=== PATIENT | female | born 1980 | race Caucasian/White ===

== ENCOUNTER 2019-10-29 13:58 | Inpatient (IN) | payer OTHER, SELFPAY ==
[2019-10-29] VITALS (12 sets, daily range): BP systolic 98–114; BP diastolic 44–73; PULSE 71–92; RESP 14–30; TEMP 36.4–36.6; O2SAT 94–100; BMI 20.1
--- NOTE | 2019-10-29 14:31 | ED.WEAKNESS ---
HPI - Weakness General Chief complaint: Weakness Stated complaint: Weakness Time Seen by Provider: 10/29/19 14:10 Source: patient Mode of arrival: EMS Limitations: no limitations History of Present Illness HPI Narrative: Patient is a 39-year-old female with history of multiple sclerosis she was actually diagnosed at the age of 11 she is here with her long-time friend who graduated high school with her. She says that she has progressively gotten she is able to ambulate with walker but is no longer able to do so and has not for a few months. She states she saw her friend 5 days ago who was found on the floor covered in urine and stool. She requires assistance to be carried to and from the bathroom. She also is unable to feed herself her hands no longer come up to her mouth, the friend has been helping feed her the past few days. Patient says that she fell he did not hit her head but landed straight on her bottom on Friday. She could sometimes tell if she needs to urinate or not. She is getting some sharp stabbing pain in her arms at times. She is followed by Dr. Muir at Neurology at [facility] Complaint: generalized weakness Related Data Home Medications Medication Instructions Recorded Confirmed [GILENADA] #0 11/11/12 [TAZADADINE] #0 11/11/12 baclofen 10 mg PO Q6H #0 tab 11/11/12 fluoxetine 40 mg PO QDAY #0 cap 11/11/12 gabapentin #0 11/11/12 ibuprofen #0 11/11/12 ibuprofen [Advil] 200 mg PO #0 tab 11/11/12 lamotrigine [Lamictal ODT] 200 mg PO BID #0 11/11/12 oxycodone-acetaminophen [Percocet] 3 tab PO Q4HP PRN #0 tab 11/11/12 Allergies Allergy/AdvReac Type Severity Reaction Status Date / Time No Known Drug Allergies Allergy Verified 10/29/19 19:20 Review of Systems Review of Systems ROS Unobtainable: All systems reviewed & are unremarkable except as noted in HPI and below Constitutional Constitutional: Denies chills, Reports frequent falls and Reports poor appetite Cardiovascular Cardiovascular: Denies chest pain, Denies irregular heart rhythm, Denies lightheadedness, Denies palpitations, Denies dyspnea, Denies dyspnea on exertion and Denies orthopnea Respiratory Respiratory: Denies cough, Denies dyspnea, Denies dyspnea on exertion and Denies wheezing Gastrointestinal Gastrointestinal: Denies abdominal pain, Denies change in bowel habits, Denies diarrhea, Denies nausea and Denies vomiting Genitourinary Genitourinary: Reports as per HPI Genitourinary: Reports as per HPI Musculoskeletal Musculoskeletal: Reports as per HPI Integumentary/Breasts Skin/Breast: Denies pruritus, Denies erythema, Denies rash and Denies wounds Neurologic Neurologic: Reports as per HPI and Reports frequent falls Endocrine Endocrine: Denies palpitations Allergic/Immunologic Allergic/Immunologic: Denies wheezing Patient History Medical History Multiple sclerosis (Acute) Social History Smoking Status: Former smoker Smoking Status: Former smoker alcohol intake frequency: 0-2 drinks per day Substance Use Type: marijuana Exam Initial Vital Signs Initial Vital Signs: Vital Signs Temperature 97.8 F 10/29/19 14:23 Pulse Rate 92 H 10/29/19 14:23 Respiratory Rate 14 10/29/19 14:23 Blood Pressure 98/57 L 10/29/19 14:23 Pulse Oximetry 99 10/29/19 14:23 GENERAL: Thin female and in [no acute] distress. HEENT: Head atraumatic,EOMI, pupils reactive, face symmetric, [moist] mucous membranes CARDIOVASCULAR: Regular rate and rhythm without murmurs, rubs or gallops. RESPIRATORY: Breath sounds equal bilaterally, no wheezes rales or rhonchi. ABDOMEN: Soft, nontender. Normoactive bowel sounds all 4 quadrants. No guarding or rebound. EXTREMITIES: Normal range of motion, no clubbing or edema. Neurovascularly intact NEUROLOGICAL: Alert and oriented x4. Diffuse weakness SKIN: Warm, dry, no laceration, no petechiae, no rashes or lesions. Course Orders Ordered: ED Orders 10/29/19 14:41 Urinalysis and Microscopic Stat 10/29/19 14:44 Consult to GLASS MOULD CLEANER - Cream Hauler Stat 10/29/19 15:00 Complete Blood Count AUTO DIFF Stat Comprehensive Metabolic Panel Stat 10/29/19 15:11 CT head/brain wo con Stat Acetaminophen (Tylenol) 650 mg PO Q6HR PRN PRN Reason: Fever/Mild Pain (1-3) Baclofen (Lioresal) 10 mg PO Q6H [facility] Enoxaparin Sodium (Lovenox) 40 mg SUBCUT DAILY [facility] Fluoxetine HCl (Prozac) 40 mg PO DAILY [facility] Dextrose/Sodium Chloride (Dextrose 5%-0.9% Ns) 1,000 mls @ 150 mls/hr IV CONT RICHARD Ibuprofen (Advil) 600 mg PO Q6HR PRN PRN Reason: Fever/Mild Pain (1-3) Naloxone HCl (Narcan) 0.2 mg IV Q2MIN PRN PRN Reason: Opiate Reversal Oxycodone HCl (Percolone) 5 mg PO Q6HR PRN PRN Reason: Pain, Moderate (4-6) Discontinued Medications Acetaminophen (Tylenol) 975 mg PO NOW ONE Stop: 10/29/19 15:12 Last Admin: 10/29/19 15:18 Dose: 975 mg Documented by: KUMAR Hydromorphone HCl (Dilaudid) 0.5 mg IV NOW ONE Stop: 10/29/19 16:59 Last Admin: 10/29/19 17:05 Dose: 0.5 mg Documented by: KUMAR Sodium Chloride (Normal Saline 0.9%) 1,000 mls @ 1,000 mls/hr IV BOLUS ONE Stop: 10/29/19 15:40 Last Infusion: 10/29/19 19:23 Dose: 1,000 mls/hr Documented by: DEE DEE Admin: 10/29/19 15:06 Dose: 1,000 mls/hr Documented by: KUMAR Vital Signs Vital signs: Vital Signs - 8 hr 10/29/19 14:23 10/29/19 14:42 10/29/19 15:00 Temperature 97.8 F Pulse Rate 92 H 85 88 Respiratory Rate 14 30 H 25 H Blood Pressure 98/57 L 98/63 Pulse Oximetry 99 10/29/19 15:32 10/29/19 16:00 10/29/19 16:30 Temperature Pulse Rate 80 74 72 Respiratory Rate 20 27 H 21 Blood Pressure 111/73 114/64 106/59 L Pulse Oximetry 100 99 100 10/29/19 17:00 10/29/19 17:30 10/29/19 18:00 Temperature Pulse Rate 71 76 73 Respiratory Rate 20 26 H Blood Pressure 108/61 114/58 L Pulse Oximetry 100 99 96 MDM - Weakness Lab Data Attestation: I reviewed the patient's lab results. Result diagrams: 10/29/19 15:00 10/29/19 15:00 Labs: Lab Results 10/29/19 10/29/19 Range/Units 15:00 15:00 WBC 8.2 (4.5-11.0) X10^3/uL RBC 3.66 L (4.0-5.2) X10^6/uL Hgb 10.8 L (12.0-16.0) g/dL Hct 32.5 L (36-46) % MCV 88.6 (80-100) fL MCH 29.5 (26-34) PG MCHC 33.3 (30-36) % RDW 16.9 H (11.6-14.8) % Plt Count 293 (150-400) X10^3/uL Neut % (Auto) 78.4 H (50-75) % Lymph % (Auto) 15.1 L (25-40) % [place] % (Auto) 5.2 (3-14) % Eos % (Auto) 0.3 L (2-4) % Baso % (Auto) 1.0 (0-2) % Neut # (Auto) 6400 (4476-4548) /uL Lymph # (Auto) 1200 (3207-6440) /uL [place] # (Auto) 400 (0-900) /uL Eos # (Auto) 0 (0-450) /uL Baso # (Auto) 100 (0-100) /uL Sodium 136 L (137-145) mmol/L Potassium 4.2 (3.4-5.1) mmol/L Chloride 102 (98-107) mmol/L Carbon Dioxide 24 (22-32) mmol/L BUN 17 (7-17) mg/dL Creatinine 0.73 (0.52-1.04) mg/dL Estimated GFR > 60.0 (>60) mL/min BUN/Creatinine Ratio 23.3 H (6-22) Glucose 102 H (70-100) mg/dL Calcium 9.0 (8.4-10.2) mg/dL Total Bilirubin 0.4 (0.2-1.3) mg/dL AST 24 (14-36) IU/L ALT 12 (<35) IU/L Alkaline Phosphatase 65 (38-126) U/L Total Protein 7.7 (6.3-8.2) g/dL Albumin 4.3 (3.5-5.0) g/dL Globulin 3.4 (1.7-4.1) g/dL Albumin/Globulin Ratio 1.3 (1.0-2.8) Imaging Data CT scan - head: Radiologist Impression: PROCEDURE: CT HEAD/BRAIN WO CON INDICATIONS: headache, falling hx MS TECHNIQUE: Noncontrast 4.5 mm thick angled axial sections acquired from the foramen magnum to the vertex, with coronal and sagittal reformats. For radiation dose reduction, the following was used: automated exposure control, adjustment of mA and/or kV according to patient size. COMPARISON: [facility], CT, HEAD WITHOUT CONTRAST, 11/11/2012, 18:36. FINDINGS: Image quality: Excellent. CSF spaces: Basal cisterns are patent. No extra-axial fluid collections. Ventricles are normal in size and shape. Brain: No midline shift. No intracranial masses or hemorrhage. Ramos-white matter interface is normal. Abnormal low-density can be seen within the periventricular and deep white matter. Skull and face: Calvarium and visualized facial bones are intact, without suspicious lesions. Sinuses: Visualized sinuses and mastoids are clear. IMPRESSION: No acute intracranial hemorrhage is seen. There is abnormal low density seen within the periventricular and deep white matter. This is highly unusual for a patient of this age, although given history of multiple sclerosis, this may be related to prominent multiple sclerosis plaques. No prior MRI is available for comparison at the time of this study. If clinically appropriate, a follow-up MRI could be considered for further evaluation (assuming that there is no contraindication). Dictated by: Doni Salazar M.D. on 10/29/2019 at 14:37 Approved by: Doni Salazar M.D. on 10/29/2019 at 14:39 MDM Narrative Medical decision making narrative: Patient is clearly failure to thrive she lives alone her friend has been helping care for her but seems to be too much. She is requiring to be Yancy to and from the restroom she is caring it depends she is unable to feed herself. 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 Discussed case with Dr. Olson who is on-call for patient's physician Dr. Hinds who happily accepts patient. Social Work has been involved with case trying to get her placement but has been unsuccessful from the emergency department. Discharge Plan Departure Patient Disposition: Admitted as Observation Clinical Impression: Multiple sclerosis, Adult failure to thrive Referrals: He Wellington MD [Primary Care Provider] - Admit Date/Time: 10/29/19 18:01 Admit Provider: Sal Olson
[2019-10-29] MEDS: SODIUM CHLORIDE 0.9% 1,000 ML 1000 ML IV (15:06)
[2019-10-29 15:09] LABS: Add Manual Diff / Slide Review NO; Basophils Absolute Auto 100 /uL (0-100); Eosinophils Absolute Auto 0 /uL (0-450); Eosinophils Percent Auto 0.3 % (2-4); Hematocrit 32.5 % (36-46); Hemoglobin 10.8 g/dL (12.0-16.0); Lymphocytes Absolute Auto 1200 /uL (1100-4500); Lymphocytes Percent Auto 15.1 % (25-40); Mean Corpuscular HGB Conc 33.3 % (30-36); Mean Corpuscular Hemoglobin 29.5 PG (26-34); Mean Corpuscular Volume 88.6 fL (80-100); Monocytes Absolute Auto 400 /uL (0-900); Monocytes Percent Auto 5.2 % (3-14); Neutrophils Absolute Auto 6400 /uL (1500-7000); Neutrophils Percent Auto 78.4 % (50-75); Platelet Count 293 X10^3/uL (150-400); Red Blood Cell Count 3.66 X10^6/uL (4.0-5.2); Red Cell Distribution Width 16.9 % (11.6-14.8); White Blood Cell Count 8.2 X10^3/uL (4.5-11.0)
--- NOTE | 2019-10-29 15:11 | DI.CT.S_ITS ---
PROCEDURE: CT HEAD/BRAIN WO CON INDICATIONS: headache, falling hx MS TECHNIQUE: Noncontrast 4.5 mm thick angled axial sections acquired from the foramen magnum to the vertex, with coronal and sagittal reformats. For radiation dose reduction, the following was used: automated exposure control, adjustment of mA and/or kV according to patient size. COMPARISON: [facility], CT, HEAD WITHOUT CONTRAST, 11/11/2012, 18:36. FINDINGS: Image quality: Excellent. CSF spaces: Basal cisterns are patent. No extra-axial fluid collections. Ventricles are normal in size and shape. Brain: No midline shift. No intracranial masses or hemorrhage. Ramos-white matter interface is normal. Abnormal low-density can be seen within the periventricular and deep white matter. Skull and face: Calvarium and visualized facial bones are intact, without suspicious lesions. Sinuses: Visualized sinuses and mastoids are clear. IMPRESSION: No acute intracranial hemorrhage is seen. There is abnormal low density seen within the periventricular and deep white matter. This is highly unusual for a patient of this age, although given history of multiple sclerosis, this may be related to prominent multiple sclerosis plaques. No prior MRI is available for comparison at the time of this study. If clinically appropriate, a follow-up MRI could be considered for further evaluation (assuming that there is no contraindication). Dictated by: Doni Salazar M.D. on 10/29/2019 at 14:37 Approved by: Doni Salazar M.D. on 10/29/2019 at 14:39
[2019-10-29] MEDS: ACETAMINOPHEN 325 MG TABLET 975 MG PO (15:18)
--- NOTE | 2019-10-29 16:09 | CM.SWNOTE ---
PARACHUTE OFFICER note PARACHUTE OFFICER consult requested for patient. Patient is a 39 y/o female with longstanding dx of MS. Patient presents to ED today with lifelong friend Nyasia via EMS after Nyasia found patient unable to move and sitting in feces. Patient is alert and oriented x3, and speaks slowly due to MS. Patient and Nyasia explain to PARACHUTE OFFICER that patient has been living alone for several years and has had her ups and downs with MS, but that patient is currently unable to use her legs or control her bowels. Nyasia and patient both report that patient has not been moving from her couch and not moving about her apartment with recent onset of PARACHUTE OFFICER symptoms. Both inform PARACHUTE OFFICER that patient is currently unable to complete many of her ADL's including walking, bathroom, feeding, and water intake. Nyasia reports that, since learning of the severity of patient's symptoms roughly 2 weeks ago, Nyasia has been working to learn about patient's current care team and has been trying to provide and coordinate caregiving as much as possible. Patient currently receives HH PT through [facility], and Nyasia explains that patient's PT stated that patient needed to be looking at long-term and informed Nyasia that a SW from [facility] would follow up. Nyasia and patient both report that this did not happen. Patient states she is open to other living arrangements to meet her needs. At time off assessment, medical tests/lab results are still pending, and it is unclear if patient will be admitted. PARACHUTE OFFICER discusses this with patient and Nyasia, and will follow up as more information is provided. PARACHUTE OFFICER offers to contact [facility] to see if patient can get connected to an outpatient catalytic case operator who may be able to help navigate in-home care options post d/c. Patient provides PARACHUTE OFFICER consent to call [facility] and to provide Nyasia's contact info if needed. PARACHUTE OFFICER calls [facility] and speaks to Ruby in Aging and Disability resources. Iliana offers to screen patient for services immediately, and sign patient up for medicaid. PARACHUTE OFFICER asks patient if she would be interested in discussing this with Iliana now and patient says yes. PARACHUTE OFFICER provides Nyasia's phone [phone] to Iliana per patient request, and Iliana will call to set up Medicaid. PARACHUTE OFFICER will follow up with patient and Dr. Kirk to continue to plan for care for patient. MAMI Bray
[2019-10-29 16:12] LABS: Alanine Aminotransferase 12 IU/L (<35); Albumin 4.3 g/dL (3.5-5.0); Albumin Globulin Ratio 1.3 (1.0-2.8); Alkaline Phosphatase 65 U/L (38-126); Aspartate Aminotransferase 24 IU/L (14-36); BUN Creatinine Ratio 23.3 (6-22); Bilirubin Total 0.4 mg/dL (0.2-1.3); Blood Urea Nitrogen 17 mg/dL (7-17); Carbon Dioxide 24 mmol/L (22-32); Chloride 102 mmol/L (98-107); Estimated Glomerular Filt Rate > 60.0 mL/min (>60); Globulin 3.4 g/dL (1.7-4.1); Glucose 102 mg/dL (70-100); HEMOLYSIS 17 (0-50); Potassium 4.2 mmol/L (3.4-5.1); Sodium 136 mmol/L (137-145); Total Protein 7.7 g/dL (6.3-8.2)
[2019-10-29] MEDS: HYDROMORPHONE 0.5 MG INJ IV (17:05)
--- NOTE | 2019-10-29 17:23 | CM.SWNOTE ---
PIANO CASE AND BENCH ASSEMBLER note PIANO CASE AND BENCH ASSEMBLER staffs with Dr. Kirk. Dr. Kirk discusses significant concerns with patient wellbeing and safety at home due to patient's current presentation and difficulty in completing any ADLs and lack of consistent caregivers. PIANO CASE AND BENCH ASSEMBLER and Dr. Kirk in agreement that patient is currently in need for 24/7 care based on current presentation. PIANO CASE AND BENCH ASSEMBLER attempts SNF placement from ED, but is unable to complete/obtain needed authorizations due to time of day (after 5pm on Friday). PIANO CASE AND BENCH ASSEMBLER informs Dr. Kirk, who states plan to admit patient to . MAMI Bray
[2019-10-29 19:49] LABS: COVID19 -Nasal RAPID Negative (Negative)
[2019-10-29] MEDS: DEXTROSE 5%-0.9% NS 1,000 ML 150 ML IV (20:08)
[2019-10-30] VITALS: BP 95/51; PULSE 68; RESP 18; TEMP 36.2; O2SAT 100
[2019-10-30] MEDS: DEXTROSE 5%-0.9% NS 1,000 ML 150 ML IV ×4 (02:20→23:32)
--- NOTE | 2019-10-30 03:19 | PC.NURSE ---
Pt resting well. Able to assist w/changing of her brief and position changes. Declining Baclofen - states she doesn't use it any longer and will request her neurologist to remove it from her med list.
[2019-10-30 08:50] VITALS: BP 109/41; PULSE 80; RESP 18; TEMP 36.7; O2SAT 98
[2019-10-30] MEDS: IBUPROFEN 600 MG TABLET PO (09:33)
[2019-10-30] MEDS: ENOXAPARIN 40 MG/0.4 ML SYRINGE SUBCUT (09:36)
[2019-10-30] MEDS: diphenhydrAMINE 25 MG TABLET PO (09:36)
--- NOTE | 2019-10-30 09:37 | P.HP_ITS ---
History of Present Illness History of Present Illness Date Patient Seen: 10/30/19 Time Patient Seen: 09:37 Chief complaint: Weakness Narrative: Pleasant 39-year-old female who is a patient of Dr. Amber Hinds. Patient with longstanding history of multiple sclerosis since apparently age 11 or so. She apparently has relapsing remitting MS and previously on medication although had some reaction that is not well identified and not currently on any medication. Current neurologist is apparently Dr. Durga Muir in [place] but has not seen him in a very long time although does have an appointment coming up in early November Apparently lives alone and has been slowly failing for the last several months. According to friend who is with her here in the hospital she has been unable to ambulate on her own for several months probably since February of 2019. She apparently is been crawling on all fours from room to room to the bathroom etcetera. She has required assistance with feeding and eating as especially later in the day she finds it difficult to move her upper extremities certainly to end raise them over her head or to her mouth etcetera Completely unable to use a fork or any utensils and is reliant on finger feeding Had not been seen for several days and friends checked on her in her home found her to be alone rather filthy curled up in her bathroom. At that point she was transported to [facility] Emergency Department where she was evaluated and subsequently admitted Patient self at this time is complaining only of a headache and some generalized itching which began after her presentation to the hospital. Patient History Medical History Multiple sclerosis (Chronic) Surgical History No pertinent past surgical history (Resolved) Family & Social History Social History: household members friend(s),caregiver Safety & Behavioral: Feels Safe in Current Yes Environment Been Physically Hurt or No Threatened By a Person Suicidal Ideation Description None Suicide Plan Description No Plan Tobacco & Substance use: Smoking Status Former smoker alcohol intake frequency 0-2 drinks per day Substance Use Type marijuana Meds Home Medications and Allergies Home Medications Medication Instructions Recorded Confirmed Type ibuprofen [Advil] 200 mg PO #0 tab 11/11/12 History sertraline 100 mg PO DAILY 10/29/19 10/29/19 History Allergies Allergy/AdvReac Type Severity Reaction Status Date / Time No Known Drug Allergies Allergy Verified 10/29/19 19:20 Review of Systems Constitutional Constitutional: Denies excessive sweating, Denies fever(s), Reports weakness, Denies weight gain and Reports weight loss Eyes Eyes: Denies change in vision, Denies itchy eyes, Denies loss of vision and Reports other visual disturbances (Everything seems super bright and perhaps a ward cast to it) ENT Ears, Nose, Mouth, and Throat: No change in voice, No dysphagia, No dizziness, No otalgia, No hoarseness, No lip swelling, No neck pain, No sore throat, No throat swelling and No tongue swelling Cardiovascular Cardiovascular: Denies chest pain, Denies syncope, Denies rapid heart rate, Denies irregular heart rhythm, Denies palpitations, Denies dyspnea, Denies dyspnea on exertion and Denies slow heart rate Respiratory Respiratory: Denies chest congestion, Denies cough, Denies hemoptysis, Denies dyspnea, Denies dyspnea on exertion, Denies stridor and Denies wheezing Gastrointestinal Gastrointestinal: Denies abdominal pain, Denies bloating, Denies change in bowel habits, Denies change in stool character, Denies dysphagia, Denies nausea, Denies vomiting and Denies hematemesis Genitourinary Genitourinary: Denies hematuria, Denies urinary frequency and Denies difficulty voiding Musculoskeletal Musculoskeletal: Denies myalgias, Denies arthralgias and Denies neck pain Integumentary/Breasts Skin/Breast: Denies bleeding lesions, Denies change in pigmentation, Denies changing lesions, Denies new lesions, Denies rash, Denies skin swelling, Denies sores and Denies jaundice Neurologic Neurologic: Denies behavioral changes, Denies confusion, Denies dizziness, Denies syncope, Denies loss of vision, Denies memory loss, Denies seizure-like activity, Denies paresthesias and Reports weakness Comments: See HPI as well Psychiatric Psychiatric: Denies behavioral changes, Denies change in appetite, Denies confusion, Denies difficulty concentrating, Denies auditory hallucinations, Denies memory loss, Denies mood swings and Denies suicidal ideation Endocrine Endocrine: Denies excessive sweating, Denies flushing, Denies polyuria and Denies palpitations Hematologic/Lymphatic Hematologic/Lymphatic: Denies easy bleeding, Denies easy bruising and Denies lymphadenopathy Allergic/Immunologic Allergic/Immunologic: Denies urticaria, Denies itchy eyes, Denies lip swelling, Denies throat swelling, Denies tongue swelling and Denies wheezing Exam Vital Signs (past 8 hours): - 10/30/19 08:50 Temperature 98.0 F Pulse Rate 80 Respiratory Rate 18 Blood Pressure 109/41 L Pulse Oximetry 98 Oxygen Delivery Method Room Air Oxygen Flow Rate 0 Narrative Exam Narrative: Young female lying in hospital bed in no obvious distress. Obviously has a ltered speech and some trouble with fine motor control of her upper extremities which is immediately apparent upon entering the room HEENT-normocephalic atraumatic PERRLA EOMs intact Neck-no lymphadenopathy no bruits Lungs-good breath sounds no wheezes no crackles anteriorly posteriorly Heart-regular rate and rhythm no murmur rub or gallop normal S1-S2 Abdomen-scaphoid, positive bowel tones, no organomegaly, no rebound or guarding Extremities-no cyanosis clubbing or edema Neuro-oriented x3, gait not tested, no focal findings moves all 4 extremities but obviously altered speech and fine motor control as above (careful evaluation not performed) Objective Labs Result Diagrams: 10/29/19 15:00 10/29/19 15:00 Labs: Laboratory Results - last 24 hr 10/29/19 10/29/19 10/29/19 15:00 15:00 18:47 WBC 8.2 RBC 3.66 L Hgb 10.8 L Hct 32.5 L MCV 88.6 MCH 29.5 MCHC 33.3 RDW 16.9 H Plt Count 293 Neut % (Auto) 78.4 H Lymph % (Auto) 15.1 L [place] % (Auto) 5.2 Eos % (Auto) 0.3 L Baso % (Auto) 1.0 Neut # (Auto) 6400 Lymph # (Auto) 1200 [place] # (Auto) 400 Eos # (Auto) 0 Baso # (Auto) 100 Sodium 136 L Potassium 4.2 Chloride 102 Carbon Dioxide 24 BUN 17 Creatinine 0.73 Estimated GFR > 60.0 BUN/Creatinine Ratio 23.3 H Glucose 102 H Calcium 9.0 Total Bilirubin 0.4 AST 24 ALT 12 Alkaline Phosphatase 65 Total Protein 7.7 Albumin 4.3 Globulin 3.4 Albumin/Globulin Ratio 1.3 COVID-19 PCR Negative Assessment & Plan Assessment & Plan narrative: 1. Multiple sclerosis-patient with longstanding history multiple sclerosis with slow steady decline as is typical. Sounds like she has been declining over the last several months rather than acute episode. Therefore I do not think any sort of intervention such as IV steroids etcetera would be beneficial. She may well benefit long-term from additional treatments but I would defer that to Neurology. 2. Failure to thrive-patient clearly has failed in the home environment trying to live independently with minimal assistance. She presented certainly very dirty with poor personal hygiene with evidence of early dehydration etcetera. We can certainly correct the relative dehydration and work on improvement with her nutrition etcetera. However plan for both short-term and long-term care is going to be necessary prior to discharge. Care management team has been consulted will work on finding short-term plan while we work on more of a long- term issue 3. Protein calorie malnutrition, severe-patient with body mass index of 16.5 and clearly is malnourished. Will have a dietary consultation here and follow recommendations for her nutritional challenges here 4. VTE prophylaxis-patient certainly is limited mobility given her underlying neurologic condition. Lovenox would be entirely appropriate and is ordered 5. Code status-patient requests full code in event of some sudden event which not anticipated of course Quality VTE Deep Vein Thrombosis/Pulmonary Embolism Present on Admission: No
--- NOTE | 2019-10-30 11:24 | OT.IP.EVAL ---
Past Medical History (Last Reviewed 10/30/19 @ 09:47 by Sal Olson MD) Multiple sclerosis (Chronic) Surgical History (Last Reviewed 10/30/19 @ 09:47 by Sal Olson MD) No pertinent past surgical history (Resolved) Occupational Therapy Inpatient Evaluation/Re-Eval M1 PT/OT-IP Prior Functional Status Start: 10/30/19 12:34 Freq: NEEDED Status: Active Protocol: Document 10/30/19 12:34 CGR (Rec: 10/30/19 13:11 CGR [email or web address]) Medical Review Prior Functional Status Medical History Reviewed Yes Communication Pt is an effective verbal communicator. Mobility and Gait ~1 month ago pt was able to stand with the 2WW but not take steps and pt was able to crawl around her apt. In the last month, pt was unable stand or crawl for mobility. Activities of Daily Living and IADL's ~1 month ago pt was able to mobilize by crawling around her apartment to get to the bathroom and kitchen as needed . In the last month pt has been unable to get to the bathroom. Prior Functional Level (Other details) Pt lives alone in an apartment . Recently, pt's friends have been coming in to assist with toielting, bathing, dressing, laundry, money management, feeding, etc. Social History Household Members none Living Arrangements Apartment/Condo Number of Floors (Floors) One Floor Number of Stairs To Enter/Railing? Not steps to enter. Pt comes into the apartment from the sliding glass door and does not use the front door. Home Environment High Toilet,Walk in Shower, Built-In Shower Seat Home Equipment Front Wheel Walker,Shower Seat without Backrest,Hand Held Shower,Grab Bars Near Toilet, Grab Bars In Shower Employment Status Unemployed Additional Social History Comment Pt has a built in seat but is unable to reach grab bars from the built in so they use a shower stool for bathing. Pt has fallen from the stool. M2 OT-IP Current Condition Start: 10/30/19 12:34 Freq: Status: Active Protocol: Document 10/30/19 12:34 CGR (Rec: 10/30/19 13:11 CGR [email or web address]) Occupational Therapy Current Condition Current Condition Evaluation Date 10/30/19 Treatment Diagnosis Generalized weakness Diagnosis Onset Date 10/29/19 M3 OT- IP Subjective and Pain Start: 10/30/19 12:34 Freq: Status: Active Protocol: Document 10/30/19 12:34 CGR (Rec: 10/30/19 13:11 CGR [email or web address]) OT- Subjective Occupational Therapy Visit Type Type Initial Evaluation Visit Start Time 10:28 Visit Stop Time 11:24 Total Visit Minutes 56 Notes Pt's friend, Nyasia, entered room early in session. OT Pain Assessment Pain When Pain Assessed At Rest Pain Present Pain Present Pain Reported Location Head Scale Used did not rate but states better after meds Management Techniques Timing of Activity with Medications M4 OT- IP ADL's Start: 10/30/19 12:34 Freq: Status: Active Protocol: Document 10/30/19 12:34 CGR (Rec: 10/30/19 13:11 CGR [email or web address]) OT TCX-Oaof-Zzxxbob General Evaluation Self-Feeding Ability Standby Assistance Areas Needing Assistance Opening Containers Comments OT Self-Feeding Comments Pt was able to bring spoon to mouth but would likely need assist for getting containers open. Pt's friend states that she was able to feed herself earlier in the day most days but has difficulty in the evening. OT ADL-Grooming General Evaluation Grooming Ability Standby Assistance Areas Needing Assistance Face Washing Comments OT Grooming Comments Pt needed encouragment to perform face washing but was able to perform. OT ADL-Oral Care General Eval Oral Care Ability Standby Assistance Areas of Assistance Brushing Teeth,Retrieving/Set- Up of Items Comments Oral Care Comments with set up sitting in chair. OT ADL-Dressing General Eval Lower Body Dressing Ability Total Assistance Areas Needing Assistance Underpants/Brief Comments OT Dressing Comments Pt needed total assist for back pericare after BM in brief. OT ADL-Toileting General Evaluation Toileting Ability Total Assistance Areas Needing Assistance Manage Clothing,Perform Perineal Hygiene Comments OT Toileting Comments Pt needed total assist for back pericare with BM in brief . OT ADL-Bathing Comments OT Bathing Comments Not performed M5 OT- IP IADL's Start: 10/30/19 12:34 Freq: Status: Active Protocol: Document 10/30/19 12:34 CGR (Rec: 10/30/19 13:11 CGR [email or web address]) OT-Instrumental Activities of Daily Living Deficits IADL Deficits Identified No Deficits Home Safety Awareness Awareness of Need for Assistance at Home Good Awareness Ability to Problem Solve Emergency Able to Problem Solve Situations Medication Management Medication Management Caregiver Administers Money Management Money Management Caregiver Provides Assistance Meal Preparation Meal Preparation Caregiver Provides Assist Dining Room Maid Dining Room Maid Caregiver Provides Assist Driving Driving Comments Pt does not drive. M6 OT- IP Functional Cognition Start: 10/30/19 12:34 Freq: Status: Active Protocol: Document 10/30/19 12:34 CGR (Rec: 10/30/19 13:11 CGR [email or web address]) Cognitive Factors Limiting Selfcare Function Cognitive Ability Level of Alertness Alert Patient Orientation Name,Age,Month,Year,Place, Situation Attention Span Ability Capable of Focused Attention, Capable of Sustained Attention Ability to Follow Commands Able to Follow One Step Commands with Increased Time, Able to Follow One Step Commands with Repetition Safety Awareness No Deficits Noted Cognitive Comments Cognitive Assessment Comments Pt would benefit from cog assessment. OT- Vision and Hearing OT- Hearing Assessment OT- Hearing Assessment WFL OT- Vision Assessment Vision Assessment Comments not tested in [facility]. M7 OT- IP Mobility and Balance Start: 10/30/19 12:34 Freq: Status: Active Protocol: Document 10/30/19 12:34 CGR (Rec: 10/30/19 13:11 CGR [email or web address]) OT- Bed Mobility Assessment Rolling Type of Rolling Roll to Right,Roll to Left Level of Assistance Standby Assistance Supine to Sit Supine to Sit Assist Minimal Assistance Scooting Scooting to Edge of Bed Minimal Assistance OT-Transfer Assessment Sit to and From Stand Sit to and from Stand Minimal Assistance Transfers Transfer Ability Total Assistance Technique Transfer Destination Bed,Chair Transfer Technique stand pivot and squat pivot Devices Transfer Assistive Devices Gait Belt Comments Mobility Comments Performed sit to stand from bed with min a but had difficulty returned to sit from stand d/t LE tone, requiring total assist. Pt then agreeable to this technical proposal writer showing her friend how to perform a bobath transfer and transfered total assist from chair to bed and back to chair . OT- Gait Assessment Comments Gait Ability Comments Pt does not walk. OT- Balance Assessment Sitting Balance and Reactions Static Sitting Balance Ability Fair Dynamic Sitting Balance Ability Poor M8 OT- IP Objective Assessments Start: 10/30/19 12:34 Freq: Status: Active Protocol: Document 10/30/19 12:34 CGR (Rec: 08/22/20 13:11 CGR [email or web address]) OT Gross Range of Motion Upper Extremity Range of Motion Assessment Within Functional Limits OT Strength Upper Extremity Strength Assessment Bilaterally Impaired Comments Strength Comments Pts MS doesn't allow for consistant strength at this time. OT- Coordination Assessment Upper Extremity Finger to Nose Test Bilateral UE Impaired Finger Tapping Test Bilateral UE Impaired OT-Muscle Tone Assessment Muscle Tone WNL No Muscle Tone Location Bilateral Upper Extremity Type of Tone Hypertonicity,Flexor Severity of Tone Moderate Manifestation of Tone Fluctuation OT Sensation Assessment Edema Edema Absent M9 OT- IP Assessment and Plan Start: 10/30/19 12:34 Freq: Status: Active Protocol: Document 10/30/19 12:34 CGR (Rec: 10/30/19 13:11 CGR [email or web address]) OT Summary Assessment and Plan Potential Rehabilitation Potential Fair Analytic Complexity at Evaluation High Summary OT Impairments Pain,Range of Motion,Strength, Balance,Coordination,Tone, Functional Cognition, Functional Mobility,Self- Feeding,Grooming,Dressing, Toileting,Bathing,Toilet Transfers,Shower Transfers, Activity Tolerance Progress Towards Goals Slow Progress due to Medical Issues,Slow Progress due to Activity Tolerance Assessment Summary Pt presents as a high complexity evaluation. Pt admitted for generalized weakness with a long standing hx of MS. Pt was requiring total assist for all mobility and ADLs for the last 2 weeks prior to admit but indicates that she has required more assist in the last few months. Pt presents today with significant deficits to her ability to care for herself, specifically, ROM, strength, balance, coordination, tone, cognition, and functional mobility. Pt will benefit from SNF for increasing strength and endurance and is likely most appropriate for medical terminologist care after SNF. Pt will benefit from OT services while hospitalized. Goals Self-Feeding Goal Independent Grooming Goal Independent Dressing Goal Independent Toileting Goal Minimal Assistance Bathing Goal Minimal Assistance Toilet Transfer Goal Minimal Assistance Shower Transfer Goal Minimal Assistance Days to Meet Goals 20 Frequency of Treatment Frequency Of Treatment Once a Day Treatment Plan OT Treatment Plan ADL Training,Functional Cognition Training,Functional Mobility,Patient/Family Education,Discharge Planning Other Treatment Recommendations and Next Pt would benefit from formal Treatment Focus cog assessment. Discharge Recommendations OT Discharge Recommendations SNF Rehab Home Equipment Needs TBD Transportation Needs at Discharge Wheelchair/Cabulance
[2019-10-30 11:30] VITALS: BP 151/66; PULSE 75; RESP 19; TEMP 36.9; O2SAT 100
--- NOTE | 2019-10-30 11:55 | PT.IIE ---
Surgical History (Last Reviewed 10/30/19 @ 09:47 by Sal Olson MD) No pertinent past surgical history (Resolved) Medical History (Last Reviewed 10/30/19 @ 09:47 by Sal Olson MD) Multiple sclerosis (Chronic) Physical Therapy Inpatient Evaluation/Re-Eval M1 PT/OT-IP Prior Functional Status Start: 10/30/19 12:34 Freq: NEEDED Status: Active Protocol: Document 10/30/19 12:34 CGR (Rec: 10/30/19 13:11 CGR [email or web address]) Medical Review Prior Functional Status Medical History Reviewed Yes Communication Pt is an effective verbal communicator. Mobility and Gait ~1 month ago pt was able to stand with the 2WW but not take steps and pt was able to crawl around her apt. In the last month, pt was unable stand or crawl for mobility. Activities of Daily Living and IADL's ~1 month ago pt was able to mobilize by crawling around her apartment to get to the bathroom and kitchen as needed . In the last month pt has been unable to get to the bathroom. Prior Functional Level (Other details) Pt lives alone in an apartment . Recently, pt's friends have been coming in to assist with toielting, bathing, dressing, laundry, money management, feeding, etc. Social History Household Members none Living Arrangements Apartment/Condo Number of Floors (Floors) One Floor Number of Stairs To Enter/Railing? Not steps to enter. Pt comes into the apartment from the sliding glass door and does not use the front door. Home Environment High Toilet,Walk in Shower, Built-In Shower Seat Home Equipment Front Wheel Walker,Shower Seat without Backrest,Hand Held Shower,Grab Bars Near Toilet, Grab Bars In Shower Employment Status Unemployed Additional Social History Comment Pt has a built in seat but is unable to reach grab bars from the built in so they use a shower stool for bathing. Pt has fallen from the stool. M1 PT/OT-IP Prior Functional Status Start: 10/30/19 14:09 Freq: NEEDED Status: Active Protocol: Document 10/30/19 11:55 AB (Rec: 10/30/19 14:24 AB [id number]) Medical Review Prior Functional Status Medical History Reviewed Yes Communication able to make needs known. Mobility and Gait per pt: able to ambulate ~ 1 month using FWW. for th passed month, has been moving around by crawling on the floor. Pt uses grab bars to get up from the floor on to the toilet. Activities of Daily Living and IADL's per OT's note: ~1 month ago pt was able to mobilize by crawling around her apartment to get to the bathroom and kitchen as needed. In the last month pt has been unable to get to the bathroom. Prior Functional Level (Other details) Per OT's note: Pt lives alone in an apartment. Recently, pt 's friends have been coming in to assist with toielting, bathing, dressing, laundry, money management, feeding, etc . Social History Household Members none Living Arrangements Apartment/Condo Number of Floors (Floors) One Floor Number of Stairs To Enter/Railing? Not steps to enter. Pt comes into the apartment from the sliding glass door and does not use the front door. Home Environment High Toilet,Walk in Shower, Built-In Shower Seat Home Equipment Front Wheel Walker,Shower Seat without Backrest,Hand Held Shower,Grab Bars Near Toilet, Grab Bars In Shower Employment Status Unemployed Additional Social History Comment Pt has a built in seat but is unable to reach grab bars from the built in so they use a shower stool for bathing. Pt has fallen from the stool. M2 PT-IP Current Condition Start: 10/30/19 14:09 Freq: NEEDED Status: Active Protocol: Document 10/30/19 11:55 AB (Rec: 10/30/19 14:24 [id number]) Physical Therapy Current Condition Current Condition Evaluation Date 10/30/19 Treatment Diagnosis MS; failure to thrive; generalized weakness Onset Date 10/29/19 Precautions Other Precautions falls M3 PT-IP Subjective Start: 10/30/19 14:09 Freq: NEEDED Status: Active Protocol: Document 10/30/19 11:55 AB (Rec: 10/30/19 14:24 [id number]) Subjective Physical Therapy Visit Type Type Initial Evaluation Visit Start Time 11:55 Visit Stop Time 12:46 Total Visit Minutes 51 Number of REGULATED PROGRAM MANAGER Visits 0 Physical Therapy Visit Comments Patient Comments pt is agreeable to do PT Therapy Pain Assessment Pain Present Pain Present Denied Pain M4 PT-IP Mobility and Gait Start: 10/30/19 14:09 Freq: NEEDED Status: Active Protocol: Document 10/30/19 11:55 AB (Rec: 10/30/19 14:24 AB [id number]) PT-Bed Mobility Assessment Sit to Supine Sit to Supine Maximum Assistance,2 Person Assistance Scooting Scooting to Edge of Bed Maximum Assistance Scooting Up and Down in Bed Maximum Assistance PT-Transfer Assessment Sit to and From Stand Sit to and from Stand Maximum Assistance,2 Person Assistance,Use of Upper Extremities Equipment Transfer Assistive Device Bed Rail Orthotic/Prosthetic Devices or Brace: No Transfers Transfer Destination Bed Transfer Technique Stand Pivot Transfer Ability Level of Assist Moderate Assistance,Maximum Assistance,2 Person Assistance ,Use of Upper Extremities Comments Mobility Comments pt sitting on chair and agreeable to do PT. completed sit to stand x 2 reps requiring max A ad max cues. pt with poor trunk control and motor control and required max A and max cues for stability during standing. pt required max A x 2 for controlled descent to chair. pt requested to go back to bed . completed stand pivot transfer without AD but with PT standing in front of pt and blocking LLE and another person assist pt from behind. pt required mod to max A x 2 and max cues. pt with increase extensor synergy and unable to sit safey on bed after transfer with increase posterior trunk leaning and bilateral hip/knee extension and unable to bend despite assistance provided nd pt has to be assisted immediately in supine. positioned pt in bed. call light and table placed within reach. Gait Assessment Comments Gait Comments unable at this time PT-Balance Assessment Sitting Balance and Reactions Static Sitting Balance Ability Poor Dynamic Sitting Balance Ability Poor Standing Balance and Reactions Static Standing Balance Ability Poor Dynamic Standing Balance Ability Poor Device Used FWW Comments Other Balance Tests/Deviations/Treatment pt has poor trunk control and : requires max A for sitting balance M5 PT-IP Objective Assessments Start: 10/30/19 14:09 Freq: NEEDED Status: Active Protocol: Document 10/30/19 11:55 AB (Rec: 10/30/19 14:24 AB [id number]) Orientation Orientation/Cognition Level of Alertness Alert Orientation Name Safety Awareness Decreased Safety Awareness Gross Range of Motion Lower Extremity ROM Assessment Within Functional Limits Strength Lower Extremity Strength Assessment Bilaterally Impaired Comments Strength Comments LLE: hip: 2+/5 knee: 3+/5 ankle: 03/19 RLE: hip: 3+/5 knee: 3+/5 ankle: 03/19 Coordination Assessment Gross Coordination Gross Coordination Impaired Sensation Assessment Sensation Light Touch Impaired Proprioception (Position) Impaired Sensation Description Numbness,Tingling Muscle Tone Muscle Tone WNL No M6 PT-IP Treatment Start: 10/30/19 14:09 Freq: NEEDED Status: Active Protocol: Document 10/30/19 11:55 AB (Rec: 10/30/19 14:24 AB [id number]) Physical Therapy Treatment Education Education Provided Safety M7 PT-IP Assessment and Plan Start: 10/30/19 14:09 Freq: NEEDED Status: Active Protocol: Document 10/30/19 11:55 AB (Rec: 10/30/19 14:24 AB [id number]) PT Summary Assessment and Plan Potential Rehabilitation Potential Good Status of Condition at Evaluation Evolving Summary Impairments Pain,ROM,Strength,Balance, Coordination,Sensation,Tone, Cognition,Bed Mobility, Transfers,Gait,Activity Tolerance Assessment Summary pt is requiring max A x 2 with all mobilities and unable to ambulate at this time. pt has decrease trunk control and requires max A for sitting balance and stability. pt will require SNF rehab to improve strength and mobility. Goals Bed Mobility Goal Minimal Assistance Transfer Goal Minimal Assistance,Front Wheeled Walker Gait Goal Minimal Assistance,Front Wheel Walker Gait Distance 25 Days to Meet Goals 10 Frequency of Treatment Frequency Of Treatment Once a Day Treatment Plan Physical Therapy Treatment Plan Bed Mobility Training,Transfer Training,Gait Training, Therapeutic Exercise,Balance Retraining,Discharge Planning, Neuromuscular Re-ed, Coordination Retraining,Manual Therapy Other Recommendations and Next Treatment sitting bal/michelle, standing bal/ Focus michelle, transfers Recommendations To Nursing Amount of Assist Needed Mechanical Lift Discharge Recommendations PT Discharge Recommendations SNF Rehab Transportation Needs at Discharge Stretcher/Ambulance
[2019-10-30 16:08] VITALS: BP 101/54; PULSE 70; RESP 16; TEMP 37.2; O2SAT 100
--- NOTE | 2019-10-30 16:29 | ST.IPIE ---
Visit Care Team Role Provider Type He Wellington MD Family Provider Non-Staff Primary Care Provider Specialty: Family Practice Address: [address] [place] [address], [id number] Email: [email or web address] [email or web address] Kirk DO Emergency Provider Physician Specialty: Emergency Medicine Address: [address] [place] [address], [id number] Email: [email or web address] Amber Hinds MD Attending Provider Physician Specialty: Family Practice Address: [address] [place] [address], [id number] Email: [email or web address] Sal Olson MD Admit Provider Physician Other Providers Specialty: Internal Medicine Address: [address] [place] [address], [id number] Email: [email or web address] Past Medical History (Last Reviewed 10/30/19 @ 09:47 by Sal Olson MD) Multiple sclerosis (Chronic Medical) ST IP Initial Evaluation Report NURSE RECRUITER Motor Speech Evaluation Start: 10/30/19 15:37 Freq: Status: Active Protocol: Document 10/30/19 15:38 MG (Rec: 10/30/19 16:28 MG [id number]) Motor Speech Evaluation Session Time Visit Start Time 14:35 Visit Stop Time 15:25 Total Visit Minutes 50 Visit Information Visit Number 1 Setting Setting Acute Care Next Note Type Next Note Type Treatment Note Patient History Source: [employer] ([employer]). Patient History Pleasant 39-year-old female who is a patient of Dr. Amber Hinds. Patient with longstanding history of multiple sclerosis since apparently age 11 or so. She has relapsing remitting MS and previously on medication although had some reaction that is not well identified and not currently on any medication. Current neurologist is Dr. Durga Muir in [place] but has not seen him in a very long time although does have an appointment coming up in early November. Apparently lives alone and has been slowly failing for the last several months. According to friend who is with her here in the hospital she has been unable to ambulate on her own for several months probably since February of 2019. She apparently is been crawling on all fours from room to room to the bathroom etcetera. She has required assistance with feeding and eating as especially later in the day she finds it difficult to move her upper extremities certainly to end raise them over her head or to her mouth etcetera. Completely unable to use a fork or any utensils and is reliant on finger feeding. Had not been seen for several days and friends checked on her in her home found her to be alone rather filthy curled up in her bathroom. At that point she was transported to [facility] Emergency Department where she was evaluated and subsequently admitted.Patient self at this time is complaining only of a headache and some generalized itching which began after her presentation to the hospital. Mental Status Mental Status Alert,Responsive,Cooperative Subjective Observations Subjective Pt was found resting in bed upon NURSE RECRUITER entering the room. PT was agreeable to NURSE RECRUITER entering the room. Voice noted to be pressured; pt needed frequent breaks while conversing with NURSE RECRUITER. Appeared effortful to speak; pt reported it's hard for her to speak and her speech has gotten worse. Pt notes if tired, her speech is more slurred and she is harder to understand. No reports of inability to swallow/eat were noted. Pt was very conversive and at times had tangential speech. Oral Motor Lips Function Mild Impairment Observation at rest Slightly open Pucker Slower movement Retraction Slower movement Alternating pucker/retraction Slower movement; difficult to alternate Involuntary Movement None noted Tongue Function Moderate Impairment Observations at rest WFL Protrusion Weak Retraction Weak Lateralization Slower movement; difficult to move Involuntary Movement None noted Jaw Function Mild Impairment Observations at rest Slightly open Opening WFL Closing WFL Lateralization Difficult to do Protrusion Difficult to do Retraction Difficult to do Involuntary movement None noted Soft Palate Function WFL Symmetry Symmetrical Elevation WFL Sustained Elevation Adequate Respiration/Phonation Phonation Quality Strained-strangled Other Adequate; some variation in loudness noted Function Mildly Impaired Loudness Variable Loudness Conversation Quality Strained-strangled Other Frequent breaks; pt is very focused when producing speech Duration Mildly Impaired Function Mildly Impaired Loudness Variable Loudness Steadiness Shakey at times Diadochokinetic Rates P^ Quality Moderate Impairment Comments Irregular rate T^ Quality Moderate Impairment Comments Irregular rate K^ Quality Moderate Impairment Comments Irregular rate P^T^K^ Quality Moderate Impairment Comments Irregular rate, difficult to alternate between sounds Speech Intelligibility Awareness/Strategy Use Description Type of awareness/use Uses intermittently Findings Details Motor Speech Function Moderate Impairment Type of Impairment Dysarthria secondary to MS Assessment Details Assessment Pt currently presents with dysarthria secondary to a diagnosis of MS. Pt produces effortful speech, which leaves her fatigued after prolonged conversation. Pt is very articulate when speaking; 100% intelligibility was noted throughout conversations. At times, noted slurred speech at the end of words was heard and frequent pausing while speaking. Pt's breath support for speech is low and she demonstrates weak articulatory movement noted by a formal OME . Pt notes it's harder for her to take breaths prior to speaking and does admit to her speech getting worse. The SLUMS was administered to the pt. Aspects were modified given poor fine motor skills. Pt scored a 14 in total points able to earn. Pt appeared to follow most directions; at times pt needed redirection or needed the question phrased differently. Pt demonstrates tangential speech patterns; at times not answering the question posed from the NURSE RECRUITER or abruptly changing the subject of conversation. Difficult to determine at this time if there is underlying mild cognitive impairments impacting pt's abilities or if this is how pt's speech/ skills are normally. Pt does not appear to have swallowing difficulties at this time. Prognosis Rehabilitation Potential Fair Recommendations Treatment Recommended Yes Therapy Recommendations Follow up with pt to determine best plan upon discharge from hospital. Utilizing oral motor exercises to help maintain current level of speech/intelligibility. Short Term Goals Pt will use strategies with minimal reminders to produce easier and intelligible speech . Group Home Goals Pt will independently utilize strategies in order to produce easier and intelligible speech. Patient/Family Education Education Described results of evaluation,Patient Understanding
[2019-10-30] MEDS: IBUPROFEN 400 MG TABLET PO ×2 (18:02→22:02)
[2019-10-30] MEDS: hydrOXYzine pamoate 25 MG CAPSULE PO (18:03)
[2019-10-30 19:22] VITALS: BP 114/57; PULSE 70; RESP 16; TEMP 36.9; O2SAT 99
[2019-10-30] MEDS: SERTRALINE 50 MG TABLET 100 MG PO (22:03)
[2019-10-31 00:30] VITALS: BP 102/56; PULSE 68; RESP 16; TEMP 36.8; O2SAT 99
[2019-10-31] MEDS: IBUPROFEN 400 MG TABLET PO ×5 (01:58→21:00)
[2019-10-31 05:00] VITALS: BP 111/51; PULSE 70; RESP 16; TEMP 36.2; O2SAT 98
[2019-10-31] MEDS: DEXTROSE 5%-0.9% NS 1,000 ML 150 ML IV (06:21)
--- NOTE | 2019-10-31 08:56 | CM.DANOTE ---
DCP/Assessment: Reviewed chart. Patient is a 39yr old female admitted [facility] with MS exacerbation. PCP is Dr. Hinds. Primary payor is 1)[employer] Medicare Advantage. Met with patient and friend/Nyasia at bedside explained role. Patient alert and oriented at time of visit. Patient reports physical deficits worsening over the last several months due to her MS. Patient diagnosed when she was 11yr old. Friend reports patient unable to care for herself at home. Patient having difficulty using her walker to move around in her apartment. Per ED notes, patient was connected with [facility] to sign up for Medicaid? DERRICKMAN HELPER cannot verify this until Friday11-01-19. In the meantime, will attempt SNF placement under patient's [employer] Medicare ADV. Patient seen by therapy and SNF recommended. nursing home planning also needed after short SNF stay. Placed call to [facility] last pm, faxed clinical requesting that they review. Will follow up today on whether or not they can accept. P: Pending MAMI Yoon Discharge Planning/Care Management Advanced directive, confirm from FAMILY Start: 10/30/19 22:52 Freq: Q24H Status: Active Protocol: Document 10/30/19 22:52 RM (Rec: 10/31/19 02:40 RM [id number]) Advance Directive, confirm on record Time 23:30 Person contacted patient Copy received No CM Discharge Assessment Start: 10/31/19 08:45 Freq: Status: Active Protocol: Document 10/31/19 08:46 KJS (Rec: 10/31/19 08:55 KJS [id number]) Discharge Planning Assessment Assigned Molding Utility Worker MAMI Yoon Contact Information Nyasia Hilton (friend) [phone] Advance Directives? No History Provided By Patient,Friend,Medical Record Has Patient been admitted in last 30 No days? Prior Living Arrangements Apartment/Condo Household Members none Type of transporation used prior to Relies on Others admit Independent with ADL's No: Deficits from MS Is patient alert and oriented? Yes Needs Assistance With Bathing,Eating,Grooming,Meal Prep,Toileting,Managing Medications,Home Chores / Shopping Caregiver for Another No Patient/Family Preference Detention Facility Barriers to Discharge Yes Discharge Plan Detention Facility Referrals Initiated Detention Whiteboard Updated in Patient Room with Yes name and ext. # of Molding Utility Worker Review Status In Process Next Review Type Continued Stay Review
[2019-10-31] MEDS: ENOXAPARIN 40 MG/0.4 ML SYRINGE SUBCUT (09:30)
[2019-10-31] MEDS: IBUPROFEN 600 MG TABLET PO (09:30)
--- NOTE | 2019-10-31 09:38 | P.PN_ITS ---
Subjective Subjective Date Patient Seen: 10/31/19 Time Patient Seen: 09:38 Interval history: Patient had uneventful day yesterday and uneventful night. Got some rest. Itching has disappeared. Only complaint this morning is some bloating and gas in her abdomen that is affecting her appetite. Was seen by Physical therapy and Occupational therapy. Both feel as though she clearly needs alf placement. Unable to walk on any level on her own and can barely stand with significant assistance. As stated in history and physical has issues with her upper extremity use that of complicate her ability to self feed as well as perform self basic ADLs Speech therapy also saw her to work on her speech no evidence of swallow dysfunction This point care management team is working on alf placement for the short term. Apparently there is an application pending for Medicaid to go with her Medicare Advantage plan. However that is all up in the air there is no power of fondant machine operator in place etcetera. These things would hopefully be settled so avel rather than later Patient herself as above really has minimal if any complaints Exam Vital Signs (past 8 hours): - 10/31/19 05:00 Temperature 97.2 F L Pulse Rate 70 Respiratory Rate 16 Blood Pressure 111/51 L Pulse Oximetry 98 Oxygen Delivery Method Room Air Oxygen Flow Rate 0 Objective Labs Result Diagrams: 10/29/19 15:00 10/29/19 15:00 Assessment & Plan Assessment & Plan narrative: 1. Multiple sclerosis-again this does not appear to be in acute exacerbation of multiple sclerosis but rather a slow steady decline therefore not a candidate for intervention with corticosteroids etcetera. Does need to be connected with Neurology at some point but that will have to be as an outpatient since we do not have Neurology on staff here. 2. Failure to thrive-patient clearly unable to care for self on her own independently. Will require substantial resources to be cared for in the home setting. For now plan is for placement to alf when that can be arranged 3. Malnutrition-continue offer nutritious meals with supplementation as well as additional assistance with feeding Note: Greater than 30 minutes was spent evaluating the patient on the floor, including examining the patient, discussing clinical course with clinical and nursing staff, reviewing clinical course in the computer, preparing documentation and writing orders for continued management of care, discussing status with family as appropriate, reviewing plans for the next 24 hours with both patient/family and nursing staff as appropriate. Quality VTE Deep Vein Thrombosis/Pulmonary Embolism Present on Admission: No
[2019-10-31] MEDS: SIMETHICONE 80 MG TABLET PO (09:48)
[2019-10-31 09:58] VITALS: BP 101/50; PULSE 78; RESP 19; TEMP 36.9; O2SAT 99
--- NOTE | 2019-10-31 12:15 | PT.IPTN ---
Physical Therapy Treatment Note M2 PT-IP Current Condition Start: 10/30/19 14:09 Freq: NEEDED Status: Active Protocol: Document 10/30/19 11:55 AB (Rec: 10/30/19 14:24 AB [id number]) Physical Therapy Current Condition Current Condition Evaluation Date 10/30/19 Treatment Diagnosis MS; failure to thrive; generalized weakness Onset Date 10/29/19 Precautions Other Precautions falls M3 PT-IP Subjective Start: 10/30/19 14:09 Freq: NEEDED Status: Active Protocol: Document 10/31/19 11:22 LJ (Rec: 10/31/19 12:15 LJ [id number]) Subjective Physical Therapy Visit Type Type Treatment Note Visit Start Time 11:22 Visit Stop Time 11:45 Total Visit Minutes 23 Number of CERAMICS ENGINEER Visits 1 Physical Therapy Visit Comments Patient Comments pt is agreeable to do PT M4 PT-IP Mobility and Gait Start: 10/30/19 14:09 Freq: NEEDED Status: Active Protocol: Document 10/31/19 11:22 LJ (Rec: 10/31/19 12:15 LJ [id number]) PT-Bed Mobility Assessment Supine to Sit Supine to Sit Minimal Assistance,2 Person Assistance,Head of Bed Elevated,Bedrails Scooting Scooting to Edge of Bed Minimal Assistance PT-Transfer Assessment Sit to and From Stand Sit to and from Stand Moderate Assistance,2 Person Assistance,Use of Upper Extremities Equipment Transfer Assistive Device Gait Belt,Front Wheeled Walker Orthotic/Prosthetic Devices or Brace: No Transfers Transfer Destination Chair Transfer Ability Level of Assist Moderate Assistance,2 Person Assistance,Use of Upper Extremities Comments Mobility Comments Pt in bed upon arrival. Willing to sit in chair. With head of bed elevated, pt required CGA-Saravanan x2 for sup> sit. Able to use bed cane for scooting to edge of bed. Pt stood with max cues for hand placement and FWW management and ModA x2 for stability. She took several steps forward but unable to manage FWW and steps at same time. Nursing managing IV pole. Pt stated she needed to sit down so she took 3 steps backwards and pivoted to the left to place herself in front of the chair. With cueing she reached back to the chair arm and lowered herself into the chair. She then performed sit<>stand x2 Saravanan x2 with cues for pushing off chair with right hand. Pt able to remain standing for several seconds then requested to sit back in chair. Second time she stood she took 2 small steps forward and stood for ~10 seconds Saravanan x2 for FWW stability and balance assist. Pt then took 2 steps backwards to chair and lowered herself into chair in controlled manner. She was able to scoot herself back in the chair using UEs. Gait Assessment Comments Gait Comments see mobility section PT-Balance Assessment Comments Other Balance Tests/Deviations/Treatment Pt has strength in LEs to : remain standing for several seconds. Requires assist with FWW management to keep it close to body while taking steps. M5 PT-IP Objective Assessments Start: 10/30/19 14:09 Freq: NEEDED Status: Active Protocol: Document 10/30/19 11:55 AB (Rec: 10/30/19 14:24 AB [id number]) Orientation Orientation/Cognition Level of Alertness Alert Orientation Name Safety Awareness Decreased Safety Awareness Gross Range of Motion Lower Extremity ROM Assessment Within Functional Limits Strength Lower Extremity Strength Assessment Bilaterally Impaired Comments Strength Comments LLE: hip: 2+/5 knee: 3+/5 ankle: 1/10 RLE: hip: 3+/5 knee: 3+/5 ankle: 1/10 Coordination Assessment Gross Coordination Gross Coordination Impaired Sensation Assessment Sensation Light Touch Impaired Proprioception (Position) Impaired Sensation Description Numbness,Tingling Muscle Tone Muscle Tone WNL No M6 PT-IP Treatment Start: 10/30/19 14:09 Freq: NEEDED Status: Active Protocol: Document 10/31/19 11:22 LJ (Rec: 10/31/19 12:15 LJ [id number]) Physical Therapy Treatment Education Education Provided Safety M7 PT-IP Assessment and Plan Start: 10/30/19 14:09 Freq: NEEDED Status: Active Protocol: Document 10/31/19 11:22 LJ (Rec: 10/31/19 12:15 LJ [id number]) PT Summary Assessment and Plan Potential Rehabilitation Potential Good Status of Condition at Evaluation Evolving Summary Impairments Pain,ROM,Strength,Balance, Coordination,Sensation,Tone, Cognition,Bed Mobility, Transfers,Gait,Activity Tolerance Assessment Summary Pt able to transfer from sitting to standing with Saravanan x2 for line management and balance. Able to take several steps forward and backward with assist with FWW positioning to keep it close to body while taking steps. Improved trunk stability in sitting being able to sit in chair with less assist from UEs. Goals Bed Mobility Goal Minimal Assistance Transfer Goal Minimal Assistance,Front Wheeled Walker Gait Goal Minimal Assistance,Front Wheel Walker Gait Distance 25 Days to Meet Goals 10 Frequency of Treatment Frequency Of Treatment Once a Day Treatment Plan Physical Therapy Treatment Plan Bed Mobility Training,Transfer Training,Gait Training, Therapeutic Exercise,Balance Retraining,Discharge Planning, Neuromuscular Re-ed, Coordination Retraining,Manual Therapy Other Recommendations and Next Treatment sitting bal/michelle, standing bal/ Focus michelle, transfers ambulation with chair follow Recommendations To Nursing Amount of Assist Needed Mechanical Lift Discharge Recommendations PT Discharge Recommendations SNF Rehab Transportation Needs at Discharge Stretcher/Ambulance
--- NOTE | 2019-10-31 13:19 | CM.DPC ---
DCP/continued: Reviewed chart. FINANCIAL SALES ADVISOR [place] [facility] [place] whether or not they could [place]? Unfortunately, they cannot because they do not have [employer] Medicare ADV or long-term capabilities. Met with patient and friend/Nyasia at bedside. Patient and friend aware that patient will most likely have to go [facility] SNF outside of [place]. In addition, notified patient that FINANCIAL SALES ADVISOR would check with [facility] on Medicaid status. Current recommendation from therapy is SNF. Placed calls and faxed to the following facilities today: [facility], [facility], and [facility] bed. Received return phone call from [facility] that they do not accept [employer] Medicare ADV. Patient inquiring about medical DPOA paperwork. Provided pamphlet to her and friend to complete. Patient aware if notary needed that [facility] would hopefully have one in the building tomorrow. P: Pending. Attempting SNF placement, although patient will need long-term either placement or caregivers in the residence. MAMI Yoon
[2019-10-31 16:07] VITALS: BP 125/56; PULSE 73; RESP 16; TEMP 36.7; O2SAT 98
[2019-10-31] MEDS: OXYCODONE IR 5 MG TABLET PO (16:12)
[2019-10-31] MEDS: ACETAMINOPHEN 325 MG TABLET 650 MG PO (17:45)
[2019-10-31] MEDS: hydrOXYzine pamoate 25 MG CAPSULE PO (17:45)
[2019-10-31] MEDS: SERTRALINE 50 MG TABLET 100 MG PO (21:01)
[2019-10-31] MEDS: SODIUM CHLORIDE 0.9% FLUSH 10 ML IV (21:01)
[2019-10-31 23:34] VITALS: BP 108/52; PULSE 76; RESP 16; TEMP 36.4; O2SAT 100
[2019-11-01] MEDS: IBUPROFEN 400 MG TABLET PO ×3 (00:34→09:37)
--- NOTE | 2019-11-01 06:25 | PC.NURSE ---
Notified Dr. Olson that pt. was vomiting x3. Order received to give Zofran 4 mg. IVP Q6 hrs. PRN. Will place & implement order & monitor.
[2019-11-01] MEDS: ONDANSETRON 4 MG/2 ML INJ IV (06:44)
[2019-11-01] MEDS: SODIUM CHLORIDE 0.9% FLUSH 10 ML IV ×3 (06:44→20:24)
--- NOTE | 2019-11-01 07:12 | PM.PN.1 ---
Subjective Subjective Date Patient Seen: 11/01/19 Time Patient Seen: 07:12 Interval history: Bellamy nauseous overnight but then slept soundly. Denies any complaints this morning. Feeling tired. Complaint with cares. SNF transfer being arranged. Exam Vital Signs (past 8 hours): - 10/31/19 23:34 Temperature 97.6 F Pulse Rate 76 Respiratory Rate 16 Blood Pressure 108/52 L Pulse Oximetry 100 Oxygen Delivery Method Room Air Oxygen Flow Rate 0 Narrative Exam Narrative: GENERAL: Alert and oriented, appearing stated age and in no acute distress. HEENT: Head normocephalic/atraumatic. Pupils equal, round, and reactive to light and accomodation. Extraocular muscles intact. Tympanic membranes clear. Nasal mucosa moist, septum midline. Oral mucosa moist, no lesions. Neck soft and supple, no lymphadenopathy. LUNGS: Clear to ausculation bilaterally, no wheezes, rhonchi or rales. CV: Normal S1 and S2 with regular rate and rhythm, no audible murmurs, rubs or gallops. ABDOMEN: Soft, non-tender, non-distended, no organomegaly. Positive bowel sounds. EXTREMITIES: No clubbing, cyanosis, or edema. NEURO: Legs spastic during interview, voice dysphonic. Gait not tested. PSYCH: Alert and oriented x 3. SKIN: No concerning lesions. Objective Labs Result Diagrams: 10/29/19 15:00 10/29/19 15:00 Assessment & Plan Assessment & Plan narrative: 1. Multiple sclerosis, chronic, present on admission, slow decline of function PLAN: Will reconnect patient with neurology as an outpatient. 2. Failure to thrive PLAN: Awaiting SNF placement, will plan for discharge when SNF placement confirmed. 3. Malnutrition, protein caloried PLAN: Nutrition consulting, continue meals with supplementation and feeding assistance per nutrition/ST plan. Quality VTE Deep Vein Thrombosis/Pulmonary Embolism Present on Admission: No
[2019-11-01 08:00] VITALS: BP 99/56; PULSE 86; RESP 16; TEMP 36.6; O2SAT 98
[2019-11-01] MEDS: ACETAMINOPHEN 325 MG TABLET 650 MG PO (09:37)
[2019-11-01] MEDS: ENOXAPARIN 40 MG/0.4 ML SYRINGE SUBCUT (09:37)
--- NOTE | 2019-11-01 11:17 | OT.IP.TRT ---
Occupational Therapy Treatment Note M2 OT-IP Current Condition Start: 10/30/19 12:34 Freq: Status: Active Protocol: Document 10/30/19 12:34 CGR (Rec: 10/30/19 13:11 CGR [id number]) Occupational Therapy Current Condition Current Condition Evaluation Date 10/30/19 Treatment Diagnosis Generalized weakness Diagnosis Onset Date 10/29/19 M3 OT- IP Subjective and Pain Start: 10/30/19 12:34 Freq: Status: Active Protocol: Document 11/01/19 11:33 CGR (Rec: 11/01/19 11:44 CGR [id number]) OT- Subjective Occupational Therapy Visit Type Type Progress Note Visit Start Time 10:48 Visit Stop Time 11:17 Total Visit Minutes 29 Notes [place] with P.t. Occupational Therapy Visit Comments Patient Comments I had a bad night last night OT Pain Assessment Pain When Pain Assessed During Mobility Pain Present Pain Present Pain Reported Location Generalized Scale Used did not rate Pain Behaviors Calling Out,Facial Grimacing, Guarding,Restlessness,Wincing Management Techniques Distraction,Modification of Treatment,Re-positioning M4 OT- IP ADL's Start: 10/30/19 12:34 Freq: Status: Active Protocol: Document 11/01/19 11:33 CGR (Rec: 11/01/19 11:44 CGR [id number]) OT MVX-Vaqw-Afmvaeu General Evaluation Self-Feeding Ability Minimal Assistance Areas Needing Assistance Drinking From Cup/Glass Comments OT Self-Feeding Comments Pt needed assist to get cup to mouth and needed redirect to drink from coffee cup vs water cup dispite clear cups. OT ADL-Grooming Comments OT Grooming Comments Not performed, pt declined OT ADL-Oral Care Comments Oral Care Comments Not performed, pt declined OT ADL-Dressing Comments OT Dressing Comments Not performed, pt declined OT ADL-Toileting Comments OT Toileting Comments Not performed, pt declined need OT ADL-Bathing Comments OT Bathing Comments Not performed M5 OT- IP IADL's Start: 10/30/19 12:34 Freq: Status: Active Protocol: Document 10/30/19 12:34 CGR (Rec: 10/30/19 13:11 CGR [id number]) OT-Instrumental Activities of Daily Living Deficits IADL Deficits Identified No Deficits Home Safety Awareness Awareness of Need for Assistance at Home Good Awareness Ability to Problem Solve Emergency Able to Problem Solve Situations Medication Management Medication Management Caregiver Administers Money Management Money Management Caregiver Provides Assistance Meal Preparation Meal Preparation Caregiver Provides Assist Compliance Review Officer Compliance Review Officer Caregiver Provides Assist Driving Driving Comments Pt does not drive. M6 OT- IP Functional Cognition Start: 10/30/19 12:34 Freq: Status: Active Protocol: Document 11/01/19 11:33 CGR (Rec: 11/01/19 11:44 CGR [id number]) Cognitive Factors Limiting Selfcare Function Cognitive Ability Level of Alertness Alert,Confusional State Patient Orientation Name,Age,Birthday Attention Span Ability Unable to Focus,Unable to Sustain Attention Ability to Follow Commands Able to Follow One Step Commands with Increased Time, Able to Follow One Step Commands with Repetition Cognitive Comments Cognitive Assessment Comments Pt with increased confusion on this date. Does not appear to remember working with this grant writer 2 days ago dispite long OT session although she appeared to remember P.T. who worked with her yesterday. Pt attempting to drink from water glass stating that she was trying to drink her coffee dispite clear cups. OT- Vision and Hearing OT- Hearing Assessment OT- Hearing Assessment WFL M7 OT- IP Mobility and Balance Start: 10/30/19 12:34 Freq: Status: Active Protocol: Document 11/01/19 11:33 CGR (Rec: 11/01/19 11:44 CGR [id number]) OT- Bed Mobility Assessment Supine to Sit Supine to Sit Assist Moderate Assistance,1 Person Assistance,Head of Bed Elevated,Bedrails Scooting Scooting to Edge of Bed Total Assistance,1 Person Assistance,2 Person Assistance ,Bedrails OT-Transfer Assessment Sit to and From Stand Sit to and from Stand Total Assistance,2 Person Assistance,Use of Upper Extremities Transfers Transfer Ability Total Assistance,1 Person Assistance Technique Transfer Destination Bed,Chair Transfer Technique bobath transfer Devices Transfer Assistive Devices Gait Belt Comments Mobility Comments Attempted sit to stand for transfer but pt was unable. Pt then performed bobath transfer with total assist to chair. OT- Gait Assessment Comments Gait Ability Comments unable to perform OT- Balance Assessment Sitting Balance and Reactions Static Sitting Balance Ability Poor Dynamic Sitting Balance Ability Poor M8 OT- IP Objective Assessments Start: 10/30/19 12:34 Freq: Status: Active Protocol: Document 10/30/19 12:34 CGR (Rec: 10/30/19 13:11 CGR [id number]) OT Gross Range of Motion Upper Extremity Range of Motion Assessment Within Functional Limits OT Strength Upper Extremity Strength Assessment Bilaterally Impaired Comments Strength Comments Pts MS doesn't allow for consistant strength at this time. OT- Coordination Assessment Upper Extremity Finger to Nose Test Bilateral UE Impaired Finger Tapping Test Bilateral UE Impaired OT-Muscle Tone Assessment Muscle Tone WNL No Muscle Tone Location Bilateral Upper Extremity Type of Tone Hypertonicity,Flexor Severity of Tone Moderate Manifestation of Tone Fluctuation OT Sensation Assessment Edema Edema Absent M9 OT- IP Assessment and Plan Start: 10/30/19 12:34 Freq: Status: Active Protocol: Document 11/01/19 11:33 CGR (Rec: 11/01/19 11:44 CGR [id number]) OT Summary Assessment and Plan Potential Rehabilitation Potential Fair Analytic Complexity at Evaluation High Summary OT Impairments Pain,Range of Motion,Strength, Balance,Coordination,Tone, Functional Cognition, Functional Mobility,Self- Feeding,Grooming,Dressing, Toileting,Bathing,Toilet Transfers,Shower Transfers, Activity Tolerance Progress Towards Goals Slow Progress due to Medical Issues,Slow Progress due to Activity Tolerance Assessment Summary Pt presents with decline from her evaluation status. Pt appears in more pain and with less ability. Pt states that she had a difficult night and still agreeable to getting up to chair. Pt indicated pain with transfer and nursing notified for pain management as able. Noted cognitive deficit on this date. Pt will continue to benefit from OT services. Goals Self-Feeding Goal Independent Grooming Goal Independent Dressing Goal Independent Toileting Goal Minimal Assistance Bathing Goal Minimal Assistance Toilet Transfer Goal Minimal Assistance Shower Transfer Goal Minimal Assistance Days to Meet Goals 20 Frequency of Treatment Frequency Of Treatment Once a Day Treatment Plan OT Treatment Plan ADL Training,Functional Cognition Training,Functional Mobility,Patient/Family Education,Discharge Planning Other Treatment Recommendations and Next Pt would benefit from formal Treatment Focus cog assessment when pt appears to be closer to her baseline. Discharge Recommendations OT Discharge Recommendations SNF Rehab Home Equipment Needs TBD Transportation Needs at Discharge Wheelchair/Cabulance
[2019-11-01] MEDS: hydrOXYzine pamoate 25 MG CAPSULE PO (11:19)
[2019-11-01] MEDS: OXYCODONE IR 5 MG TABLET PO (11:19)
--- NOTE | 2019-11-01 11:20 | SLP.IPNOTE ---
Attempted to see patient for speech therapy, however PT and OT were providing treatment. Will reattempt as able. Abby Richard MS, CF-SILVERER
[2019-11-01 11:36] VITALS: BP 108/63; PULSE 92
--- NOTE | 2019-11-01 11:43 | PT.IPTN ---
Physical Therapy Treatment Note M2 PT-IP Current Condition Start: 10/30/19 14:09 Freq: NEEDED Status: Active Protocol: Document 10/30/19 11:55 AB (Rec: 10/30/19 14:24 AB [id number]) Physical Therapy Current Condition Current Condition Evaluation Date 10/30/19 Treatment Diagnosis MS; failure to thrive; generalized weakness Onset Date 10/29/19 Precautions Other Precautions falls M3 PT-IP Subjective Start: 10/30/19 14:09 Freq: NEEDED Status: Active Protocol: Document 11/01/19 10:53 LJ (Rec: 11/01/19 11:43 LJ [id number]) Subjective Physical Therapy Visit Type Type Treatment Note Visit Start Time 10:53 Visit Stop Time 11:13 Total Visit Minutes 20 Notes CO treat with OT Number of IT APPLICATIONS ANALYST Visits 2 Physical Therapy Visit Comments Patient Comments pt is agreeable to do PT. C/O pain in posterior LEs Therapy Pain Assessment Pain When Pain Assessed During Mobility Pain Present Pain Present Pain Reported M4 PT-IP Mobility and Gait Start: 10/30/19 14:09 Freq: NEEDED Status: Active Protocol: Document 11/01/19 10:53 LJ (Rec: 11/01/19 11:43 LJ [id number]) PT-Bed Mobility Assessment Supine to Sit Supine to Sit Moderate Assistance,1 Person Assistance,Head of Bed Elevated,Bedrails Scooting Scooting to Edge of Bed Dependent PT-Transfer Assessment Sit to and From Stand Sit to and from Stand Total Assistance,2 Person Assistance Equipment Transfer Assistive Device Gait Belt,Front Wheeled Walker Orthotic/Prosthetic Devices or Brace: No Transfers Transfer Destination Chair Transfer Ability Level of Assist Total Assistance,2 Person Assistance Comments Mobility Comments Pt required Saravanan x1 with head of bed elevated to sit on the side of the bed. Pt able to keep herself seated with use of UEs and Saravanan from IT APPLICATIONS ANALYST. Strong extensor synergy this treatment. OT assisted with 2 attempts at standing with gait belt and use of FWW. First attempt pt was able to maintain standing for 2 seconds prior to needing to sit on side of bed. Pt required total assist to scoot back into the bed x2. Also required rest breaks to relax extensor tone. Pt was transferred to chair squat pivot transfer and positioned in chair with total assist. All needs within reach. Gait Assessment Comments Gait Comments unable at this time M5 PT-IP Objective Assessments Start: 10/30/19 14:09 Freq: NEEDED Status: Active Protocol: Document 10/30/19 11:55 AB (Rec: 10/30/19 14:24 AB [id number]) Orientation Orientation/Cognition Level of Alertness Alert Orientation Name Safety Awareness Decreased Safety Awareness Gross Range of Motion Lower Extremity ROM Assessment Within Functional Limits Strength Lower Extremity Strength Assessment Bilaterally Impaired Comments Strength Comments LLE: hip: 2+/5 knee: 3+/5 ankle: 1/10 RLE: hip: 3+/5 knee: 3+/5 ankle: 1/10 Coordination Assessment Gross Coordination Gross Coordination Impaired Sensation Assessment Sensation Light Touch Impaired Proprioception (Position) Impaired Sensation Description Numbness,Tingling Muscle Tone Muscle Tone WNL No M6 PT-IP Treatment Start: 10/30/19 14:09 Freq: NEEDED Status: Active Protocol: Document 11/01/19 10:53 LJ (Rec: 11/01/19 11:43 LJ [id number]) Physical Therapy Treatment Exercises Exercises Heel Slides M7 PT-IP Assessment and Plan Start: 10/30/19 14:09 Freq: NEEDED Status: Active Protocol: Document 11/01/19 10:53 LJ (Rec: 11/01/19 11:43 LJ [id number]) PT Summary Assessment and Plan Potential Rehabilitation Potential Good Status of Condition at Evaluation Evolving Summary Impairments Pain,ROM,Strength,Balance, Coordination,Sensation,Tone, Cognition,Bed Mobility, Transfers,Gait,Activity Tolerance Assessment Summary Pt having increased pain this morning. Pt with confusion asking for some alcohol to be put into her emesis bag. She was able to perform several B heel slides prior to sitting on the side of the bed. Required assist x1 to sit on side of bed but the rest of treatment she was total assist x2. She was left in the chair with OT in the room and all needs within reach. Goals Bed Mobility Goal Minimal Assistance Transfer Goal Minimal Assistance,Front Wheeled Walker Gait Goal Minimal Assistance,Front Wheel Walker Gait Distance 25 Days to Meet Goals 10 Frequency of Treatment Frequency Of Treatment Once a Day Treatment Plan Physical Therapy Treatment Plan Bed Mobility Training,Transfer Training,Gait Training, Therapeutic Exercise,Balance Retraining,Discharge Planning, Neuromuscular Re-ed, Coordination Retraining,Manual Therapy Other Recommendations and Next Treatment sitting bal/michelle, standing bal/ Focus michelle, transfers ambulation Recommendations To Nursing Amount of Assist Needed Mechanical Lift Discharge Recommendations PT Discharge Recommendations SNF Rehab Transportation Needs at Discharge Stretcher/Ambulance
--- NOTE | 2019-11-01 12:06 | DIET.PN ---
Dietary Progress Note Assessment: Ms Terrazas has a past medical history of multiple sclerosis since approx age 11. Per report, she lives alone and has been slowly failing for the last several months. She is unable to use a fork or any utensils and is reliant on finger feeding. She was able to pickup driver her cup during my assessment, but had some difficulty drinking her fluids. She had some mild coughing while drinking. She also reports bloating and gassy feeling causing a low appetite. HT: 157.48cm WT: 41.5kg UBW: 130 lb x1 yr ago per pt recall BMI: 16.7 PO': 25-50% MNA: 12 Dave: 18 Nutrition Diagnosis: Severe chronic PCM r/t alteration in GI function/ difficulty caring for self aeb energy intake <75% EER > 1mo, >20% wt loss in 1 yr, BMI 16.7. Interventions: 1. Reviewed patient likes/dislikes including Danishes, sandwiches, breakfast sandwiches and other finger foods. Encouraged patient to order protein with each meal. 2. Provide ONS ensure enlive BID. Patient agreeable. Provided pt coupons. Diet Order: General EER: 1300 tiffany @ 30cal/kg ; 54g pro (1.3) Monitoring/Evaluations: weight, PO intake, ONS acceptance
--- NOTE | 2019-11-01 14:09 | SLP.IPNOTE ---
Attempted to see pt; however she was in the bathroom. Nursing reports coughing with liquids - Pt told nursing she has been choking lately, so she isn't eating much. Suggested MBS, given pt's diagnosis
[2019-11-01 15:30] VITALS: BP 96/56; PULSE 90; RESP 17; TEMP 37.3; O2SAT 100
--- NOTE | 2019-11-01 15:58 | PC.NURSE ---
Shift summary: Late entry Alert and oriented X3. Speech at times clear, at other times stilted and a bit garbled. Lungs CTA, HRR. Was transferred to chair by PT/OT this morning (see their notes), santiago transfer back to bed by nursing. Patient had not voided at of 1330 and had no urge to void. Bladder scan showed >999 ml. This junior technical writer spoke w/ Dr Barber and received order to place Ocampo catheter, as well as an order for PRN IV pain meds (if holding PO's r/t swallowing concerns) and a Barium Swallow study (per recommendation from DUMP MOTORMAN). Patient did choke when she took her Tylenol and Ibuprofen this morning, and has been heard coughing after drinking also. Patient reports she did not eat or drink much today r/t concerns over swallowing. 1300 dose of Ibuprofen held r/t concerns with swallowing, DUMP MOTORMAN plans to be back up to see patient this afternoon. Ocampo placed at 1500 with >1000 ml out (cloudy, ruma, strong smelling). Patient is able to make needs known and calls appropriately. Light and belongings within reach, bed alarm on.
--- NOTE | 2019-11-01 16:02 | CM.DPNOTE ---
DCP: This high risk case manager is assisting [facility] on placement for this patient. Have attempted several facilities. [facility] declined, confirmed with Tiny in admissions that patient is too complex. [facility] [place] has declined, per Shantelle. [facility] declined, per Brittany. [facility] inpatient has declined, as well. This high risk case manager called [facility] and spoke to admissions. They mentioned that they do accept [employer], and they could have some beds opening up soon. Faxed referral over to [facility], and they will review. Left a message with [facility], asking if they accept [employer]. Sigrid called back and stated that they only accept [employer] if their provider is out of the [facility] [place]. Called Jan in [place]. Admission cell phone is: [phone]. Their fax number is: [phone]. Spoke to Jyoti at [facility]. Stated, they may be able to do a one time agreement with her insurance. Faxed referral over. P: Follow up with [facility] and Jan tomorrow. May need to attempt more facilities in the [facility], such as [facility], or in [facility]. Nena Aldana, RN/Tap Builder
--- NOTE | 2019-11-01 16:22 | PM.EVENT ---
Event Note Date Patient Seen: 11/01/19 Time Patient Seen: 16:22 Event Note: Called by nursing regarding 1500 mL of residual urine in the bladder. Indwelling Ocampo ordered. Speech therapy also requested a barium swallow study secondary to difficulty swallowing pills. Swallow study ordered along with an order for IV morphine. Connected with discharge planning, they still have been unable to find a placement for patient at an SNF. This will be the focus of tomorrow's work, hopeful for discharge to SNF tomorrow.
[2019-11-01] MEDS: MORPHINE 2 MG/ML INJ IV ×2 (16:26→20:24)
--- NOTE | 2019-11-01 17:32 | ST.IPTN ---
Visit Care Team Role Provider Type He Wellington MD Family Provider Non-Staff Primary Care Provider Address: [address] [place] [address], [address] Shira Kirk DO Emergency Provider Physician Address: [address] [place] [address], [address] Amber Hinds MD Attending Provider Physician Address: [address] [place] [address], [place], [address] Sal Olson MD Admit Provider Physician Other Providers Address: [address] [place] [address], [place] [address], [place], [address] RECEPTIONIST NURSE Treatment Note RECEPTIONIST NURSE Treatment Note Start: 10/30/19 15:37 Freq: Status: Active Protocol: Document 11/01/19 16:49 [email or web address] (Rec: 11/01/19 17:06 EPHRAIM [id number]) Speech Pathology Treatment Note Session Time Visit Start Time 15:50 Visit Stop Time 16:40 Total Visit Minutes 50 Setting Treatment Setting Acute Care Visit Type Note Type Treatment Note Next Note Type Next Note Type Treatment Note General Information General Information Patient with longstanding history of multiple sclerosis since apparently age 11 or so. Pt has been living independently with several recent falls but has seemingly received some assistance with mobility and feeding from friends; otherwise crawls from room to room and feeds by fingers d/t inability to operate utensils. She was brought to ED when friends found her on the bathroom floor in [facility] at home. The pt was seen by RECEPTIONIST NURSE two days ago, primarily for dysarthria. Swallow screen at that time did not reveal overt s/sx of aspiration. Pt today has been observed by Nsg with significant coughing with liquids and pills. MBS orders were requested and received. Subjective Identification Type Name,ID Card Observations/Patient Presentation Pt was lying in bed, awake upon RECEPTIONIST NURSE arrival. In initial discussions, the pt reported significant difficulty swallowing, as well as pain in her abdomen. She rated pain as 10 on scale of 1-10. Nsg was notified. Chief Complaint(s) Speech,Swallowing Objective Short Term Goals 1. Pt will participate in MBSS for further assessment of swallow function and safety and to guide POC. 2. Education and training to be provided in oral motor exercises and strategies to improve speech intelligibility and swallow safety. Assisted Goals 1. The pt will exhibit 100% speech intelligibility, using compensatory strategies as needed. 3. The pt will tolerate least restrictive diet to meet her nutrition and hydration needs. Treatment Activities Oral Peripheral Exam performed . Pt initially demonstrated reduced lateral lingual ROM, which improved with multiple attempts. Oral movements were slow, but otherwise WFL of strength and ROM. The pt is missing upper molars, greater on left side than right, and one bottom left tooth. She denies this interferes with mastication. Screened pt's swallow safety with single cup sips of thin liquids. Again, oral motor prep and swallow initiation was slow with reduced coordination, and the pt exhibited significant coughing with 3 of 4 sips. Trials were discontinued for pt safety and pt was made NPO pending MBS results. The pt was educated RE dysphagia commonly associated with MS, as well as MBS recommendations/orders, procedure and purpose. She was in agreement with both NPO status and MBS procedure. MBS is scheduled for 1:00 pm tomorrow. Pt verbalized agreement. Assessment Rehab Potential Fair Impairments Identified Dysarthria,Dysphagia Assessment of Overall Progress Declining Assessment of Improvement The pt presents with significant swallow deficits, with aspiration noted at bedside screening. This appears to be a decline since 2 days ago when no overt s/sx of aspiration were observed during swallow screening with intake of solids and liquids. Given presence of MS, instrumental evaluation was recommended and orders received for assessment of current swallow function and safety and to serve as baseline moving forward. MBSS is scheduled for tomorrow () at 1:00. The pt was receptive to education provided RE the procedure and in agreement with it and with NPO status pending its results. Reviewed with Patient Goals,Progress Being Made,Home Exercise Program Patient/Caregiver Understanding Good Plan Provided Patient/Caregiver Instruction Plan of Care,Questions/ Concerns Therapy Recommendations Continue with Current Program Comment Recommend SNF or home health with Speech Therapy services upon hosp d/c.
[2019-11-01] MEDS: MAGNESIUM SULFATE 2 GM, FOLIC ACID 1 MG, THIAMINE 100 MG, MULTIVITAMIN 10 ML in SODIUM ... IV (18:14)
[2019-11-01 19:34] VITALS: BP 113/61; PULSE 94; RESP 17; TEMP 37.4; O2SAT 100
[2019-11-01] MEDS: LORazepam 2 MG/ML INJ IV (23:03)
[2019-11-01 23:33] VITALS: BP 105/64; PULSE 115; RESP 16; TEMP 37; O2SAT 100
[2019-11-02] VITALS (12 sets, daily range): BP systolic 115–140; BP diastolic 51–94; PULSE 94–135; RESP 18–24; TEMP 37.2–38.7; O2SAT 94–97
--- NOTE | 2019-11-02 01:45 | PC.NURSE ---
Addendum entered by Mali Lai R.N. 11/02/19 05:12: Patient exhibiting restlessness, anxiety, tremoring of upper extremities. States yes when asked about headache and nausea but unable to rate severity of headache. Attempting to take gown off. States she wants to get out of here. CIWA score of 9 so medicated with Ativan. Original Note: Patient seen at 2333 and CIWA reassessed at 0 after having received Ativan 30 minutes prior. Is oriented to self and birthdate (except for year), month and place. Is able to communicate but speech is slow and garbled. Respirations are shallow but breath sounds CTA with RA sat of 100%. HRR but tachy at 115 bpm. Denies nausea. BT present and abdomen is soft/flat. Indwelling catheter is patent; urine is cloudy, yellow. Is not moving herself in bed so set up to reposition q2h. Has scatttered bruising/abrasions on bilateral LE left > right. Is able to move all extremities but weak. Denies pain. Seizure pads applied to bed. Bilateral calf SCD's applied. Fall risk score is high and bed alarm is activated.
[2019-11-02] MEDS: SODIUM CHLORIDE 0.9% FLUSH 10 ML IV ×3 (04:53→13:44)
[2019-11-02] MEDS: LORazepam 2 MG/ML INJ IV (04:53)
[2019-11-02] MEDS: SODIUM CHLORIDE 0.9% 500 ML 1000 ML IV ×2 (09:00→18:22)
--- NOTE | 2019-11-02 09:32 | DI.RAD.S_ITS ---
PROCEDURE: XR CHEST 2V INDICATIONS: febrile, concerns re: possible aspiration TECHNIQUE: 2 views of the chest were acquired. COMPARISON: [facility], , [place] BARIUM SWALLOW W SPEECH, 11/02/2019, 12:03. FINDINGS: Surgical changes and devices: None. Lungs and pleura: Lungs are clear. No pleural effusions or pneumothorax. Mediastinum: Mediastinal contours are normal. Heart size is normal. Oral contrast can be seen within the esophagus stomach. Bones and chest wall: No suspicious bony abnormalities. Age-appropriate bony degenerative changes are seen. Accentuated thoracic kyphosis is seen. Soft tissues appear unremarkable. IMPRESSION: Clear lungs. Oral contrast noted. Dictated by: Doni Salazar M.D. on 11/02/2019 at 12:37 Approved by: Doni Salazar M.D. on 11/02/2019 at 12:39
[2019-11-02] MEDS: DEXTROSE 5%-0.9% NS 1,000 ML 150 ML IV ×2 (09:50→22:20)
[2019-11-02] MEDS: MORPHINE 2 MG/ML INJ IV ×2 (09:51→14:21)
[2019-11-02] MEDS: ENOXAPARIN 40 MG/0.4 ML SYRINGE SUBCUT (09:51)
[2019-11-02] MEDS: ACETAMINOPHEN 650 MG SUPP PR ×2 (09:51→22:57)
[2019-11-02 10:27] LABS: Appearance Urine UA CLOUDY; Bilirubin Urine UA NEGATIVE (NEGATIVE); Color Urine UA YELLOW; Glucose Urine UA NEGATIVE (Negative); Ketones Urine UA NEGATIVE (NEGATIVE); Leukocyte Esterase Urine UA 3+ (NEGATIVE); Nitrite Urine UA POSITIVE (Negative); Occult Blood Urine UA 3+ (Negative); Protein Urine UA 2+ (Negative); Specific Gravity Urine UA 1.015 (1.000-1.035); Urobilinogen Urine UA 0.2 E.U./dL (0.2)
[2019-11-02 10:37] LABS: Bacteria Urine Many (>30); Culture Indicated Urine Specimen Cultured; RBC Urine 5-10/HPF (0-5/HPF); Squamous Epithelial Cell Urine 1-5 /HPF (0-5/HPF); WBC Urine >100/HPF (0-5/HPF)
[2019-11-02 11:13] LABS: Add Manual Diff / Slide Review NO; Basophils Absolute Auto 100 /uL (0-100); Basophils Percent Auto 0.4 % (0-2); Eosinophils Absolute Auto 0 /uL (0-450); Eosinophils Percent Auto 0.4 % (2-4); Hematocrit 23.7 % (36-46); Hemoglobin 7.9 g/dL (12.0-16.0); Lymphocytes Absolute Auto 300 /uL (1100-4500); Lymphocytes Percent Auto 1.9 % (25-40); Mean Corpuscular HGB Conc 33.4 % (30-36); Mean Corpuscular Hemoglobin 29.2 PG (26-34); Mean Corpuscular Volume 87.5 fL (80-100); Monocytes Absolute Auto 300 /uL (0-900); Monocytes Percent Auto 1.9 % (3-14); Neutrophils Absolute Auto 12600 /uL (1500-7000); Neutrophils Percent Auto 95.4 % (50-75); Platelet Count 160 X10^3/uL (150-400); Red Blood Cell Count 2.71 X10^6/uL (4.0-5.2); Red Cell Distribution Width 17.3 % (11.6-14.8); White Blood Cell Count 13.2 X10^3/uL (4.5-11.0)
--- NOTE | 2019-11-02 11:13 | PT-IP ANOTE ---
Per RN, hold until PM d/t elevated HR >120 while resting and fatigue.
--- NOTE | 2019-11-02 11:13 | OT.IPNOTE ---
Checked on pt for OT treatment, nurse states to hold for AM as pt's HR has been high and not feeling well. In addition, pt to have MBS this afternoon.
[2019-11-02 11:26] LABS: Alanine Aminotransferase 13 IU/L (<35); Albumin 2.9 g/dL (3.5-5.0); Alkaline Phosphatase 51 U/L (38-126); Aspartate Aminotransferase 27 IU/L (14-36); Bilirubin Total 0.4 mg/dL (0.2-1.3); Blood Urea Nitrogen 17 mg/dL (7-17); Calcium 7.8 mg/dL (8.4-10.2); Carbon Dioxide 22 mmol/L (22-32); Chloride 107 mmol/L (98-107); Estimated Glomerular Filt Rate > 60.0 mL/min (>60); Globulin 2.9 g/dL (1.7-4.1); Glucose 126 mg/dL (70-100); HEMOLYSIS < 15 (0-50); Potassium 3.1 mmol/L (3.4-5.1); Sodium 134 mmol/L (137-145); Total Protein 5.8 g/dL (6.3-8.2)
[2019-11-02 12:12] LABS: C-Reactive Protein Quant 37.4 mg/dL (<1.0)
[2019-11-02] MEDS: CEFTRIAXONE 1 GM/50 ML FROZ.PIGGY IV (13:44)
--- NOTE | 2019-11-02 14:18 | DI.RAD.S_ITS ---
PROCEDURE: FL BARIUM SWALLOW W SPEECH INDICATIONS: coughing with PO intake COMPARISON: None. TECHNIQUE: Examination was conducted in conjunction with speech pathology per standard protocol. In the lateral projection, filming was performed of the patient swallowing. AP projection filming may also be performed with patient swallowing. COMPARISON: FINDINGS: Function: The oral preparatory phase appears delayed, with proper containment. The subsequent oral propulsive phase, pharyngeal phase, and esophageal phase of swallowing also appear delayed with all proffered substances. Silent tracheal aspiration with thin, and nectar thick liquid barium consistencies.. There was vallecular pooling. Morphology: No cricopharyngeal bar is identified. No cervical esophageal webs. No Zenker's diverticulum. No strictures. IMPRESSION: Tracheal aspiration as above Dictated by: Cheng Stevens M.D. on 11/02/2019 at 14:57 Approved by: Cheng Stevens M.D. on 11/02/2019 at 14:58
[2019-11-02] MEDS: POTASSIUM CHLORIDE 40 MEQ in SODIUM CHLORIDE 0.9% 500 ML 130 ML IV (14:31)
--- NOTE | 2019-11-02 14:35 | PM.CHAP ---
Short visit this pm. I have family connections to Pt's friend and primary support person, Nyasia Manzano, who expressed concern regarding d/c plans. Both Pt and Nyasia had questions and concerns about home health, SNF, hospice conversations. Am available Friday after 10 am to help with those conversations if needed. Dave Gonsales, [facility] [phone]
--- NOTE | 2019-11-02 14:47 | ST.SWALLOW ---
Visit Care Team Role Provider Type He Wellington MD Family Provider Non-Staff Primary Care Provider Specialty: Family Practice Address: [address] [place] [address], [id number] Email: [email or web address] Emergency Provider Physician Specialty: Emergency Medicine Address: [address] [place] [address], [address] Email: [email or web address] Amber Hinds MD Attending Provider Physician Specialty: Family Practice Address: [address] [place] [address], [address] Email: [email or web address] Sal Olson MD Admit Provider Physician Other Providers Specialty: Internal Medicine Address: [address] [place] [address], [address] Email: [email or web address] ST Modified Barium Swallow Study ENGINEER AND GEOLOGIST Modified Barium Swallow Study Start: 10/30/19 15:37 Freq: Status: Active Protocol: Document 11/02/19 13:46 MG (Rec: 11/02/19 14:45 MG [id number]) Modified Barium Swallow Study Total Time Visit Start Time 13:10 Visit Stop Time 13:35 Total Visit Minutes 25 Setting Setting Acute Care Patient Information Identification Type Name,ID Wristband Patient History Patient with longstanding history of multiple sclerosis since apparently age 11 or so. Pt has been living independently with several recent falls but has seemingly received some assistance with mobility and feeding from friends; otherwise crawls from room to room and feeds by fingers d/t inability to operate utensils. She was brought to ED when friends found her on the bathroom floor in [facility] at home. Concerns of swallowing were noted from staff and an MBSS was ordered to further assess pt's swallowing abilities, rule out silent aspiration, and determine the least restrictive diet. Subjective Observations Pt was brought in to the room by nurse and set up for the MBSS. Pt appeared tired and required a belt to hold an upright position. Patient Positioning Position View Lateral Imaging Lateral View Textures Administered Trials Presented Thin Liquid via Spoon,Rincon Liquid via Spoon,Honey Liquid via Spoon,Pudding Thick Liquid via Spoon,Regular Textures Oral Phase Source: MBSIMP (TM) (C) Bolus Specific Scoring Grid Lip Closure Minimal Impairment Tongue Control During Bolus Hold Moderate Impairment Bolus Prep/Mastication Moderate Impairment Bolus Transport/Lingual Motion Moderate Impairment A/P Lingual Propulsion Delay Yes Number of Seconds Delayed (seconds) 1-2 Oral Residue Moderate Impairment Residue Clearing Mild Impairment Nasal Regurgitation No Additional Oral Phase Observations Moderate oral residue was seen on all trials. A double swallow appeared to assist in clearing residue. Posterior spillage into the pharynx was noted in the majority of trials. Mastication time was prolonged and appeared uncoordinated. Pt appeared to have a difficult time maneuvering the bolus anterior to posterior as noted by reduced lingual movement and extended swallow times. Pt required ample time and multiple swallows to clear liquids and solids from the oral cavity. No nasal regurgitation seen. Pharyngeal Phase Source: MBSIMP (TM) (C) Bolus Specific Scoring Grid Delayed Initiation of Pharyngeal Swallow Yes Number of Seconds Delayed (seconds) 1-3 Soft Palate Elevation WFL Tongue Base Strength/Range of Motion Moderate Impairment Residue Along the Tongue Base Yes Clearance of Residue Along Tongue Base Moderate Impairment Laryngeal Elevation Mild Impairment Anterior Hyoid Movement Moderate Impairment Epiglottic Range of Motion Moderate Impairment Vallecular Residue Yes Clearance of Vallecular Residue Mild Impairment Laryngeal Vestibular Closure Mild Impairment Pharyngeal Stripping Wave Mild Impairment Pharyngeal Contraction Mild Impairment Clearance of Posterior Pharyngeal Wall Moderate Impairment Residue Upper Esophageal Sphincter Opening Mild Impairment Residue in the Pyriform Sinuses Yes Clearance of Residue in the Pyriform Mild Impairment Sinuses Esophageal Clearance Upright Position Mild Impairment Pharyngoesophageal Backflow Observed No Additional Pharyngeal Phase Observations Mopderate pharyngeal reside noted on all trials. Double swallow appeared to help reduce residue in the pharynx. Noted reduced eppiglottic movement resulting in a less protective swallow. Kaden aspiration noted on trial of thin from spoon, which resulted in immediate coughing . Pt's cough was weak. Reduced anterior movement of the hyoid and reduced hyolaryngeal movement was observed. Penetration was noted on all trials of nectar thick. Utilizing the chin tuck maneuver did not assist helping reduce penetration. On honey thick and pudding consistency, pt could swallow with no maneuvers and did not aspirate or penetrate. Less residue was noted on honey and pudding consistency. A/P View Clinical Impressions Dysphagia Type Oropharyngeal dysphagia Findings At this time, pt presents with moderate oropharyngeal dysphagia. Aspiration was obersved on thin and penetration noted on nectar thick that did not resolve with chin tuck maneuver. Honey and pudding thick consistencies appear to be safe to consume at this time with no aspiration or penetration seen. Oral motor weakness observed appears to prolong mastication and bolus preparation times. Tongue movements are uncoordinated and can lead to posterior spillage into the pharynx. PT may be a candidate for PEG tube with recreational feedings in order to support getting adequate nutrition given extent of dysphagia. Will discuss with doctor and pt to see what their wishes are. Rehabilitation Potential Fair Patient Appropriate for Therapy Yes: Check in with diet modifications/tolerance Recommendations Diet Liquids Order Honey Diet Order Dysphagia Mechanical Comments In carrier, whole or crushed depending on tolerability Additional Dietary Needs Single Sips,No Straws, Encourage to Self-Feed Aspiration Precautions Recommended Precautions Upright at 90 Degrees,Frequent Rest Periods,Small Bites/Sips ,Double Swallow,Check for Pocketing,Liquids from Wide Cup Treatment Plan Compensatory Strategies Recommendations Sitting Upright (90 deg), Double Swallow,Liquids from Wide Cup,Small Bites and Sips Short Term Goals Pt with participate in education about the swallowing mechanism. Residential Goals Pt will tolerate least restrictive diet without showing overt s/sx of aspiration.
--- NOTE | 2019-11-02 15:00 | DI.US.S_ITS ---
PROCEDURE: US PELVIC COMPLETE INDICATIONS: anemia, pain TECHNIQUE: Real-time scanning was performed of the pelvic organs, with image documentation. Additional endovaginal scanning was necessary due to incomplete visualization of the adnexal and endometrial structures by transabdominal scanning. COMPARISON: [facility], US, US ABDOMEN COMPLETE, 11/02/2019, 15:45. FINDINGS: Evaluation is limited, secondary to the patient's inability to fully cooperate with the examination. Transabdominal scanning: A mild amount of free pelvic fluid is seen within the pelvic cul-de-sac and within the left adnexal region. Limited scanning through the kidneys shows no hydronephrosis. Endovaginal scanning: Uterus: Uterus is normal in size at 8.2 x 4.6 x 4.4 cm. The endometrium measures 6 mm in combined thickness. An IUD is seen at its expected location. Ovaries: The right ovary measures 5.7 x 4.2 x 4 centimeters and demonstrates a hemorrhagic appearing cyst that measures 3.3 x 4 x 2.8 centimeters. The left ovary measures 2.4 x 1.6 x 1.7 centimeters and demonstrates an unremarkable sonographic appearance. No adnexal masses are seen on either side. IMPRESSION: Right ovarian hemorrhagic cyst measuring up to 4 centimeters. Associated free pelvic fluid is seen. At clinical discretion, a followup pelvic ultrasound is suggested in 6 weeks to assure resolution/ improvement. IUD seen in place. Dictated by: Doni Salazar M.D. on 11/02/2019 at 15:57 Approved by: Doni Salazar M.D. on 11/02/2019 at 15:59
--- NOTE | 2019-11-02 15:00 | PT.IPTN ---
Physical Therapy Treatment Note M2 PT-IP Current Condition Start: 10/30/19 14:09 Freq: NEEDED Status: Active Protocol: Document 10/30/19 11:55 AB (Rec: 10/30/19 14:24 AB [id number]) Physical Therapy Current Condition Current Condition Evaluation Date 10/30/19 Treatment Diagnosis MS; failure to thrive; generalized weakness Onset Date 10/29/19 Precautions Other Precautions falls M3 PT-IP Subjective Start: 10/30/19 14:09 Freq: NEEDED Status: Active Protocol: Document 11/02/19 15:00 AB (Rec: 11/02/19 16:11 AB [id number]) Subjective Physical Therapy Visit Type Type Treatment Note Visit Start Time 15:00 Visit Stop Time 15:17 Total Visit Minutes 17 Number of DRUG REGULATORY AFFAIRS SPECIALIST Visits 0 Physical Therapy Visit Comments Patient Comments pt c/o abdominal pain but willing to do PT Therapy Pain Assessment Pain When Pain Assessed At Rest Location Abdomen Scale Used pain scale not stated Pain Behaviors Holding Area Pain Management Techniques Distraction,Modification of Treatment M4 PT-IP Mobility and Gait Start: 10/30/19 14:09 Freq: NEEDED Status: Active Protocol: Document 11/02/19 15:00 AB (Rec: 11/02/19 16:11 AB [id number]) PT-Bed Mobility Assessment Supine to Sit Supine to Sit Maximum Assistance,2 Person Assistance Sit to Supine Sit to Supine Maximum Assistance,2 Person Assistance Scooting Scooting to Edge of Bed Dependent Scooting Up and Down in Bed Dependent PT-Transfer Assessment Comments Mobility Comments completed supine to sit max A x 2 and max cues. pt required max A to maintain sitting balance on EOB. pt with difficulty following directions. pt stated that she is tired. Pt had MBS procedure this afternoon. pt also seems drowsy. conducted some sittting balance activity but pt unable to participate much due to drowsiness and has difficulty following directions. completed sit to supine max A x 2 and max cues. positioned in bed. co tx conducted with OT. Left pt with call light and table within reach and bed alarm on. PT-Balance Assessment Standing Balance and Reactions Static Standing Balance Ability Poor Dynamic Standing Balance Ability Poor M5 PT-IP Objective Assessments Start: 10/30/19 14:09 Freq: NEEDED Status: Active Protocol: Document 10/30/19 11:55 AB (Rec: 10/30/19 14:24 AB [id number]) Orientation Orientation/Cognition Level of Alertness Alert Orientation Name Safety Awareness Decreased Safety Awareness Gross Range of Motion Lower Extremity ROM Assessment Within Functional Limits Strength Lower Extremity Strength Assessment Bilaterally Impaired Comments Strength Comments LLE: hip: 2+/5 knee: 3+/5 ankle: 110 RLE: hip: 3+/5 knee: 3+/5 ankle: 10 Coordination Assessment Gross Coordination Gross Coordination Impaired Sensation Assessment Sensation Light Touch Impaired Proprioception (Position) Impaired Sensation Description Numbness,Tingling Muscle Tone Muscle Tone WNL No M6 PT-IP Treatment Start: 10/30/19 14:09 Freq: NEEDED Status: Active Protocol: Document 11/02/19 15:00 AB (Rec: 11/02/19 16:11 AB [id number]) Physical Therapy Treatment Exercises Exercises Heel Slides Education Education Provided Safety M7 PT-IP Assessment and Plan Start: 10/30/19 14:09 Freq: NEEDED Status: Active Protocol: Document 11/02/19 15:00 AB (Rec: 11/02/19 16:11 AB [id number]) PT Summary Assessment and Plan Potential Rehabilitation Potential Fair Summary Impairments Pain,ROM,Strength,Balance, Coordination,Sensation,Tone, Cognition,Bed Mobility, Transfers,Gait,Activity Tolerance Progress Towards Goals Slow Progress due to Medical Issues,Slow Progress due to Activity Tolerance Assessment Summary pt continues to require max A x 2 with bed mobility. unable to do transfers today due decrease activity tolerance and has difficulty following directions today. will continue to work on goals and assess progress. pt will require SNF rehab to improve strength and function. Goals Bed Mobility Goal Minimal Assistance Transfer Goal Minimal Assistance,Front Wheeled Walker Gait Goal Minimal Assistance,Front Wheel Walker Gait Distance 25 Days to Meet Goals 10 Frequency of Treatment Frequency Of Treatment Once a Day Treatment Plan Physical Therapy Treatment Plan Bed Mobility Training,Transfer Training,Gait Training, Therapeutic Exercise,Balance Retraining,Discharge Planning, Neuromuscular Re-ed, Coordination Retraining,Manual Therapy Other Recommendations and Next Treatment sitting bal/michelle, standing bal/ Focus michelle, transfers ambulation Recommendations To Nursing Amount of Assist Needed Mechanical Lift Discharge Recommendations PT Discharge Recommendations SNF Rehab Transportation Needs at Discharge Stretcher/Ambulance
--- NOTE | 2019-11-02 15:01 | DI.US.S_ITS ---
PROCEDURE: US ABDOMEN COMPLETE INDICATIONS: pain, anemia, ms, uti TECHNIQUE: Real-time scanning was performed of the abdominal and retroperitoneal organs, with image documentation. COMPARISON: [facility], US, US PELVIC COMPLETE, 11/02/2019, 16:01. FINDINGS: Liver: Liver is normal in size and homogeneous in echotexture. Gallbladder: The gallbladder is somewhat prominent in size. No findings of gallstones or sludge are seen. The gallbladder wall is not thickened, measuring 3 mm or less. No specific pericholecystic fluid is seen. The sonographic Ritchie sign is negative. Biliary ducts: Intrahepatic bile ducts are non-dilated. Extrahepatic bile duct caliber measures 6 mm. Normal is 6-7 mm or less in diameter, or 10 mm or less post-cholecystectomy. Pancreas: Visualized portions of the pancreas are sonographically normal. Spleen: Spleen is normal in size and homogeneous in echotexture. Kidneys: Kidneys are normal in size. The kidneys demonstrate an echogenic appearance. Right kidney measures 11.1 cm long; left kidney measures 12.3 cm long. No hydronephrosis hydronephrosis is seen, although there is an extrarenal pelvis seen on the right. No nephrolithiasis. No solid masses. Aorta: Visualized aorta is normal in caliber at less than 3 cm. Iliacs: Proximal common iliac arteries are normal in caliber at less than 2.5 cm. IVC: Intrahepatic inferior vena cava is patent. Miscellaneous: No free abdominal fluid. Evaluation is limited, secondary to the patient's inability to fully cooperate with the examination. IMPRESSION: No hydronephrosis is seen. The gallbladder is somewhat prominent. The gallbladder otherwise demonstrates a normal sonographic appearance. No biliary dilatation is seen. Dictated by: Doni Salazar M.D. on 11/02/2019 at 15:53 Approved by: Doni Salazar M.D. on 11/02/2019 at 15:54
--- NOTE | 2019-11-02 15:18 | OT.IP.TRT ---
Occupational Therapy Treatment Note M2 OT-IP Current Condition Start: 10/30/19 12:34 Freq: Status: Active Protocol: Document 10/30/19 12:34 CGR (Rec: 10/30/19 13:11 CGR [email or web address]) Occupational Therapy Current Condition Current Condition Evaluation Date 10/30/19 Treatment Diagnosis Generalized weakness Diagnosis Onset Date 10/29/19 M3 OT- IP Subjective and Pain Start: 10/30/19 12:34 Freq: Status: Active Protocol: Document 11/02/19 15:23 [facility] (Rec: 11/02/19 15:32 [facility] [email or web address]) OT- Subjective Occupational Therapy Visit Type Type Treatment Note Visit Start Time 14:45 Visit Stop Time 15:18 Total Visit Minutes 33 Occupational Therapy Visit Comments Patient Comments Pt agreed to try to get up. Physician present in the beginning of the session and friend present throughout. Patient/Caregiver Goals To get better. OT Pain Assessment Pain When Pain Assessed At Rest Pain Present Pain Present Pain Reported Location Generalized Intensity 5 Scale Used Numeric (0 - 10) M6 OT- IP Functional Cognition Start: 10/30/19 12:34 Freq: Status: Active Protocol: Document 11/02/19 15:23 [facility] (Rec: 11/02/19 15:32 [facility] [id number]) Cognitive Factors Limiting Selfcare Function Cognitive Ability Level of Alertness Alert,Confusional State Patient Orientation Name Attention Span Ability Unable to Focus,Unable to Sustain Attention Ability to Follow Commands Able to Follow One Step Commands with Increased Time, Able to Follow One Step Commands with Repetition Cognitive Comments Cognitive Assessment Comments Pt still confused but seem to be able to recall her medications that she takes at home little more today and that she did have the MBS done earlier. However at times, pt having difficulty to get the words out as well. M7 OT- IP Mobility and Balance Start: 10/30/19 12:34 Freq: Status: Active Protocol: Document 11/02/19 15:23 [facility] (Rec: 11/02/19 15:32 [facility] [email or web address]) OT- Bed Mobility Assessment Supine to Sit Supine to Sit Assist Moderate Assistance,2 Person Assistance,Head of Bed Elevated,Bedrails Sit to Supine Sit to Supine Assist Maximum Assistance,2 Person Assistance Scooting Scooting to Edge of Bed Maximum Assistance,2 Person Assistance OT-Transfer Assessment Comments Mobility Comments Pt a bit groggy therefore only able to work on sitting balance. Pt tends to lean into posterior with lateral tilt to the left. Pt has poor awareness of midline and ability to be able to control her trunk muscles at this time . Pt needing MODA x1 for sitting balance. OT- Gait Assessment Comments Gait Ability Comments unable to perform OT- Balance Assessment Sitting Balance and Reactions Static Sitting Balance Ability Poor Dynamic Sitting Balance Ability Poor M8 OT- IP Objective Assessments Start: 10/30/19 12:34 Freq: Status: Active Protocol: Document 10/30/19 12:34 [facility] (Rec: 10/30/19 13:11 [facility] [email or web address]) OT Gross Range of Motion Upper Extremity Range of Motion Assessment Within Functional Limits OT Strength Upper Extremity Strength Assessment Bilaterally Impaired Comments Strength Comments Pt's MS doesn't allow for consistant strength at this time. OT- Coordination Assessment Upper Extremity Finger to Nose Test Bilateral UE Impaired Finger Tapping Test Bilateral UE Impaired OT-Muscle Tone Assessment Muscle Tone WNL No Muscle Tone Location Bilateral Upper Extremity Type of Tone Hypertonicity,Flexor Severity of Tone Moderate Manifestation of Tone Fluctuation OT Sensation Assessment Edema Edema Absent M9 OT- IP Assessment and Plan Start: 10/30/19 12:34 Freq: Status: Active Protocol: Document 11/02/19 15:23 [facility] (Rec: 11/02/19 15:32 [facility] [email or web address]) OT Summary Assessment and Plan Potential Rehabilitation Potential Fair Analytic Complexity at Evaluation High Summary OT Impairments Pain,Range of Motion,Strength, Balance,Coordination,Tone, Functional Cognition, Functional Mobility,Self- Feeding,Grooming,Dressing, Toileting,Bathing,Toilet Transfers,Shower Transfers, Activity Tolerance Progress Towards Goals Slow Progress due to Pain,Slow Progress due to Medical Issues,Slow Progress due to Activity Tolerance,Slow Progress due to Cognition Assessment Summary Pt agreed to try to get up today however only able to tolerate sitting balance with MODA X1. Pt needing extensive assist and far from baseline and would benefit from skilled rehab prior to going home. Pt states very tired today and having abdomen pain which is limiting her activity tolerance. Goals Self-Feeding Goal Independent Grooming Goal Independent Dressing Goal Independent Toileting Goal Minimal Assistance Bathing Goal Minimal Assistance Toilet Transfer Goal Minimal Assistance Shower Transfer Goal Minimal Assistance Days to Meet Goals 20 Frequency of Treatment Frequency Of Treatment Once a Day Treatment Plan OT Treatment Plan ADL Training,Functional Cognition Training,Functional Mobility,Patient/Family Education,Discharge Planning Other Treatment Recommendations and Next Pt would benefit from formal Treatment Focus cog assessment when pt appears to be closer to her baseline. Grooming while sitting at edge of bed. Discharge Recommendations OT Discharge Recommendations SNF Rehab Home Equipment Needs TBD Transportation Needs at Discharge Wheelchair/Cabulance
--- NOTE | 2019-11-02 15:42 | PC.NURSE ---
Shift summary: Late entry See HCP communication flowsheet for details of discussions this typewriter operator automatic had with Dr José (this morning) regarding this patient. Received IV fluid bolus, and is now on maintenance fluids via new IV site in L wrist. hand packager Jeffrey tika labs this morning. One set of blood cultures still needs drawn and this was passed on to tani shift RN. Started on IV Ceftriaxone for UTI, tolerated first dose without s/sx adverse reaction. K-rider started after abx completed. Was medicated with rectal Tylenol for fever, and IV Morphine X2 for C/O pain all over and in my belly. New order for Ultrasound to evaluate abd pain. Barium swallow study completed, new diet ordered per GLAZE SUPERVISOR recommendations with signage posted above bed. Chest x-ray done. Ocampo patent to gravity, urine cloudy/ruma. Tima lift for transfers, Q2H assist with repositioning. Patient is definitely more alert and interactive this afternoon than she was this morning. POA Nyasia here and advocating for patient, see CM notes re: ongoing d/c planning. POA documents notarized and in chart. Able to make needs known and has been calling appropriately. Light and belongings within reach, bed alarm on.
--- NOTE | 2019-11-02 16:24 | CM.SWNOTE ---
CEILING INSTALLER note CEILING INSTALLER followed up with [facility] regarding Medicaid application. CEILING INSTALLER spoke to Tiny Garcia, ph [phone]. Tiny looked up the status of patient's application and informs CEILING INSTALLER that application is complete, has been sent in and received by Medicaid, and that an expeditied processing was requested. Tiny informs CEILING INSTALLER that application will likely be reviewed by Friday, and that staff can contact [phone] for updates regarding the application. CEILING INSTALLER updates CM/DCP MAMI Villa. MAMI Bray
--- NOTE | 2019-11-02 16:40 | CM.DPC ---
DCP/continued: Reviewed chart. Received call this AM from patient's DPOA/Nyasia re: d/c plan. Notified Nyasia that no SNF has accepted patient. Most facilities either do not feel they can manage patient, no bed availibility, or no assisted plan in place. Therefore, HEATSET WINDER OPERATOR placed call in to [facility] and faxed expedited [facility] application. Message left at [facility] re: status of application? In the meantime, met with patient and Nyasia. Provided them both with update related to placements. Nyasia reports that they do not want patient out of [facility]. Notified Nyasia that CM team must check all [employer] contracted SNF's in [place]. Later in the afternoon, patient and Nyasia request to see HEATSET WINDER OPERATOR again. Nyasia reports that they do not want patient to go to SNF at all. They would prefer that she comes home with caregivers and DME. Notified both that [facility] application is pending and that this could take weeks to complete. Nyasia inquiring about hospice? Notified Nyasia that hospice could provide DME and a small amount of nursing services however, patient would still need caregivers. Also discussed this being the same with home health but DME would not be included until she qualifies for [facility]. Encouraged Nyasia and patient to discuss this with PCP/Dr. Hinds tomorrow 11-03-19. HEATSET WINDER OPERATOR updated Dr. José via telephone. Patient changed to inpatient status today. Loan closet information provided to DPOA to gather DME for home use. DPOA does believe that she can round up assistance from family/friends until caregivers can start. P: Pending. At this point, no SNF can be located and patient/DPOA would like to take patient home with either hospice or HH. Medicaid application pending and hopefully caregivers will be able to assist once patient assessed and approved, which may take weeks. MAMI Yoon
--- NOTE | 2019-11-02 17:25 | ST.IPTN ---
Visit Care Team Role Provider Type He Wellington MD Family Provider Non-Staff Primary Care Provider Address: [address] [place] [address], [id number] Shira Kirk DO Emergency Provider Physician Address: [address] [place] [address], [address] Amber Hinds MD Attending Provider Physician Address: [address] [place] [address], [facility] [place], [address] Sal Olson MD Admit Provider Physician Other Providers Address: [address] [place] [address], [address], [address] HELP DESK ENGINEER Treatment Note HELP DESK ENGINEER Treatment Note Start: 10/30/19 15:37 Freq: Status: Active Protocol: Document 11/02/19 17:08 MG (Rec: 11/02/19 17:25 MG [id number]) Speech Pathology Treatment Note Session Time Visit Start Time 16:20 Visit Stop Time 16:50 Total Visit Minutes 30 Setting Treatment Setting Acute Care Visit Type Note Type Treatment Note Next Note Type Next Note Type Treatment Note General Information General Information Patient with longstanding history of multiple sclerosis since apparently age 11 or so. Pt has been living independently with several recent falls but has seemingly received some assistance with mobility and feeding from friends; otherwise crawls from room to room and feeds by fingers d/t inability to operate utensils. She was brought to ED when friends found her on the bathroom floor in [facility]. MBSS was completed earlier today and HELP DESK ENGINEER went to room to discuss results of the MBSS with pt and family member as well as provide education and discuss what the pt's wishes were. Subjective Identification Type Name,ID Wristband Others Present Family Observations/Patient Presentation Pt was resting in bed, complaining of pain and being uncomfortable. Pt appearede disoriented to the situation. Family member was also present in room for a debriefing of the situation. Chief Complaint(s) Speech,Swallowing Patient Knowledge/Awareness of HELP DESK ENGINEER Role Fair in Treatment Parent/Caretake Knowledge/Awareness of Good HELP DESK ENGINEER Role in Treatment Patient/Caregiver Compliance with Home Fair Exercise Program Objective Short Term Goals Pt and family will participate in education re: dysphagia, dysarthria, and modified diet options. Bath Mixer Goals Pt will tolerate least restrictive diet without demonstrating overt s/sx of aspiration. Treatment Activities Pt was uncomfortable and appeared confused. HELP DESK ENGINEER went over MBSS results with the pt and her family member/POA. The MBSS test has shown difficulties with pt's swallow abilities, leading to aspiration/penetration on some liquid consistencies and demonstrates difficulties with mastication of hard, solid food. The HELP DESK ENGINEER's recommendations were presented to the POA and pt. POA and pt appeared hopeful if the pt were to regain strength that she may be able to be evaluated again and modify diet. At this time, the pt is very weak and there is a high risk of aspiration if the pt did not follow recommendations . The HELP DESK ENGINEER went over pros and cons of the diet modifications and pros and cons if the pt chose to not follow the recommendations. The pt and family decided to stick with recommendations made from the HELP DESK ENGINEER and determine needs/diet modifications/quality of life as treatment progresses. Assessment Patient Response to Treatment Fair Rehab Potential Fair Impairments Identified Dysarthria,Dysphagia,Other Progress Towards Goals Delayed Progress Assessment of Overall Progress Declining Assessment of Improvement Pt appears to be declining since originally brought to the hospital. ST team to follow to determine best plan of care re: diet modifications , oral motor exercises, pt/ caregiver education. Pt may be a good candidate for the free water protocol; this should be discussed with the pt/ caregiver for the next session . Both the pt and caregiver had no further questions for the HELP DESK ENGINEER prior to leaving the room. Patient/Caregiver Understanding Good Plan Therapeutic Contents Oral Motor Training,Parent Education Training,Swallowing/ Feeding,Other Provided Patient/Caregiver Instruction Plan of Care,Questions/ Concerns Therapy Recommendations Continue with Current Program
[2019-11-02] MEDS: LORazepam 2 MG/ML INJ 0.5 MG IV ×2 (17:30→21:37)
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
--- NOTE | 2019-11-02 18:36 | PC.NURSE ---
500cc bolus only infusing at 250cc/hr related to IV access. Dr. Estefanía shook.
[2019-11-02 18:45] LABS: Add Manual Diff / Slide Review NO; Basophils Absolute Auto 100 /uL (0-100); Basophils Percent Auto 0.5 % (0-2); Eosinophils Absolute Auto 100 /uL (0-450); Eosinophils Percent Auto 0.6 % (2-4); Hematocrit 23.5 % (36-46); Lymphocytes Absolute Auto 400 /uL (1100-4500); Lymphocytes Percent Auto 2.9 % (25-40); Mean Corpuscular Hemoglobin 29.8 PG (26-34); Mean Corpuscular Volume 87.7 fL (80-100); Monocytes Absolute Auto 300 /uL (0-900); Monocytes Percent Auto 2.1 % (3-14); Neutrophils Absolute Auto 12400 /uL (1500-7000); Neutrophils Percent Auto 93.9 % (50-75); Platelet Count 161 X10^3/uL (150-400); Red Blood Cell Count 2.68 X10^6/uL (4.0-5.2); White Blood Cell Count 13.2 X10^3/uL (4.5-11.0)
[2019-11-02 19:03] LABS: BUN Creatinine Ratio 26.5 (6-22); Blood Urea Nitrogen 18 mg/dL (7-17); Carbon Dioxide 20 mmol/L (22-32); Chloride 108 mmol/L (98-107); Estimated Glomerular Filt Rate > 60.0 mL/min (>60); Glucose 98 mg/dL (70-100); HEMOLYSIS < 15 (0-50); Potassium 3.7 mmol/L (3.4-5.1); Sodium 135 mmol/L (137-145)
--- NOTE | 2019-11-02 23:39 | PC.NURSE ---
shift summary- Pt with high anxiety early in shift. US ABD/Pelvic/vaginal done which resulted in 4cm cyst to right ovary. Pt also with UTI, and fever intermittently. Per provider pt high anxiety, new orders for ativan 0.5mg Q-2hr for anxiety, which is highly effective. After friend/POA Nyasia, left for the evening, pt resting calmly and quietly. Ativan given @ 1730 and 2130. Per provider, not to give pt PO medications (ibuprofen and sertraline) r/t too much stimulation. Provider to evaluate again in AM. Pt HR baseline trends in the 100's to 115's, HR has been up to 140 this shift provider aware. Temp trrending up and down from 100.9 i/2 hr later down to 100, then @ 2009 100.4, given tylenol per rectum @ 0. Seizure pads in place on bed. Call light in reach and bed alarm on.
[2019-11-03] VITALS (9 sets, daily range): BP systolic 90–132; BP diastolic 53–72; PULSE 82–111; RESP 17–20; TEMP 36.5–38.1; O2SAT 97–100
--- NOTE | 2019-11-03 00:06 | PC.NURSE ---
Addendum entered by Mali Lai R.N. 11/03/19 05:21: Patient has slept most of shift. Talking to staff this morning and denies pain or nausea. Is calm and relaxed with no signs of agitation. Speech is clearer this morning. Last temperature check was 99.9 Addendum entered by Mali Lai R.N. 11/03/19 00:20: Patient is currently asleep so unable to assess orientation. Does not respond to voice but when attempt to lift extremities there is some resistance to movement. Skin is diaphoretic. Breath sounds CTA with RA sat of 98%. HRR but tachy at 111. BT present and abdomen is soft/flat. Indwelling catheter is patent; urine appears clear, yellow. Wearing bilateral calf SCD's. FLACC score of 0. Seizure pads on bed. Is needing repositioning q2h as not moving self. Fall risk score is high and bed alarm is activated. Original Note: Patient's temp was 101.4 at shift change and was given Tylenol suppository per Petrona Willoughby RN and temp is now 100.6
[2019-11-03] MEDS: DEXTROSE 5%-0.9% NS 1,000 ML 150 ML IV ×2 (04:55→17:51)
[2019-11-03 06:56] LABS: Add Manual Diff / Slide Review NO; Basophils Absolute Auto 0 /uL (0-100); Basophils Percent Auto 0.1 % (0-2); Eosinophils Absolute Auto 100 /uL (0-450); Eosinophils Percent Auto 1.4 % (2-4); Hematocrit 22.9 % (36-46); Lymphocytes Absolute Auto 400 /uL (1100-4500); Lymphocytes Percent Auto 4.2 % (25-40); Mean Corpuscular HGB Conc 34.8 % (30-36); Mean Corpuscular Hemoglobin 30.5 PG (26-34); Mean Corpuscular Volume 87.8 fL (80-100); Monocytes Absolute Auto 300 /uL (0-900); Monocytes Percent Auto 3.1 % (3-14); Neutrophils Absolute Auto 9000 /uL (1500-7000); Neutrophils Percent Auto 91.2 % (50-75); Platelet Count 139 X10^3/uL (150-400); Red Blood Cell Count 2.61 X10^6/uL (4.0-5.2); Red Cell Distribution Width 17.2 % (11.6-14.8); White Blood Cell Count 9.8 X10^3/uL (4.5-11.0)
[2019-11-03 07:06] LABS: Alanine Aminotransferase 13 IU/L (<35); Albumin 2.7 g/dL (3.5-5.0); Albumin Globulin Ratio 0.9 (1.0-2.8); Alkaline Phosphatase 56 U/L (38-126); Aspartate Aminotransferase 32 IU/L (14-36); Bilirubin Total 0.4 mg/dL (0.2-1.3); Blood Urea Nitrogen 13 mg/dL (7-17); Calcium 7.8 mg/dL (8.4-10.2); Carbon Dioxide 21 mmol/L (22-32); Chloride 110 mmol/L (98-107); Estimated Glomerular Filt Rate > 60.0 mL/min (>60); Globulin 2.9 g/dL (1.7-4.1); Glucose 125 mg/dL (70-100); HEMOLYSIS < 15 (0-50); Sodium 136 mmol/L (137-145); Total Protein 5.6 g/dL (6.3-8.2)
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
[2019-11-03] MEDS: POTASSIUM CHLORIDE 40 MEQ in SODIUM CHLORIDE 0.45% 1,000 ML 100 MEQ IV (08:37)
[2019-11-03] MEDS: MULTIVITAMIN 1 TABLET 1 TAB PO (10:29)
[2019-11-03] MEDS: ENOXAPARIN 40 MG/0.4 ML SYRINGE SUBCUT (10:29)
[2019-11-03] MEDS: THIAMINE 100 MG TABLET PO (10:29)
[2019-11-03] MEDS: IBUPROFEN 400 MG TABLET PO ×3 (10:29→19:35)
[2019-11-03] MEDS: FOLIC ACID 1 MG TABLET PO (10:30)
[2019-11-03] MEDS: OXYCODONE IR 5 MG TABLET PO (10:30)
[2019-11-03] MEDS: ACETAMINOPHEN 650 MG SUPP PR (12:01)
[2019-11-03] MEDS: CEFTRIAXONE 1 GM/50 ML FROZ.PIGGY IV (12:19)
--- NOTE | 2019-11-03 13:07 | ST.IPTN ---
Visit Care Team Role Provider Type JAMI De La Rosa Other Providers Advanced Corrugator Helper Address: [address] [place] [address], [address] He Wellington MD Family Provider Non-Staff Primary Care Provider Address: [address] [place], [address] Shira Kirk DO Emergency Provider Physician Address: [address] [place] [address], [address] Amber Hinds MD Attending Provider Physician Address: [facility]– [place][note 2] [place], [address] Sal Olson MD Admit Provider Physician Other Providers Address: [address] [place] [address], [address], [address] MARKET INTELLIGENCE CONSULTANT Treatment Note MARKET INTELLIGENCE CONSULTANT Treatment Note Start: 10/30/19 15:37 Freq: Status: Active Protocol: Document 11/03/19 12:54 ISAACK (Rec: 11/03/19 13:07 [id number] [id number]) Speech Pathology Treatment Note Session Time Visit Start Time 11:55 Visit Stop Time 12:15 Total Visit Minutes 20 Setting Treatment Setting Acute Care Visit Type Note Type Treatment Note Next Note Type Next Note Type Treatment Note General Information General Information Patient with longstanding history of multiple sclerosis since apparently age 11 or so. Pt has been living independently with several recent falls but has seemingly received some assistance with mobility and feeding from friends; otherwise crawls from room to room and feeds by fingers d/t inability to operate utensils. She was brought to ED when friends found her on the bathroom floor in [facility]. MBSS was completed earlier today and MARKET INTELLIGENCE CONSULTANT went to room to discuss results of the MBSS with pt and family member as well as provide education and discuss what the pt's wishes were. Subjective Identification Type Name,ID Wristband Others Present Family Observations/Patient Presentation Pt was resting in bed, complaining of headache pain with ice pack om her head. Pt more oriented and speaking more clearly today. IV fluids infusing. Pt had a friend at bedside. Chief Complaint(s) Speech,Swallowing Patient Knowledge/Awareness of MARKET INTELLIGENCE CONSULTANT Role Fair in Treatment Parent/Caretake Knowledge/Awareness of Good MARKET INTELLIGENCE CONSULTANT Role in Treatment Patient/Caregiver Compliance with Home Fair Exercise Program Objective Short Term Goals Pt and family will participate in education re: dysphagia, dysarthria, and modified diet options. Freight Hustler Goals Pt will tolerate least restrictive diet without demonstrating overt s/sx of aspiration. Treatment Activities Pt was uncomfortable with a headache. reviewed the MBSS results briefly. Pt and friend both reported that pt ate all of her breakfast including honey thick liquid. Pt reported that she had no problems coughing or choking. Observed pt with lunch . No overt s/sx aspiration. Tolerating diet. Assessment Patient Response to Treatment Fair Rehab Potential Fair Impairments Identified Dysarthria,Dysphagia,Other Progress Towards Goals Delayed Progress Assessment of Overall Progress Declining Assessment of Improvement Pt appears to be improved since yesterday. ST team to follow to determine best plan of care re: diet modifications , oral motor exercises, pt/ caregiver education. Pt is agreeable to PEG to increase nutrition to meet needs. Patient/Caregiver Understanding Good Plan Therapeutic Contents Client Education,Oral Motor Training,Swallowing/Feeding, Other Provided Patient/Caregiver Instruction Plan of Care,Questions/ Concerns Therapy Recommendations Continue with Current Program
--- NOTE | 2019-11-03 13:56 | CM.DPC ---
DCP Ongoing Planning: Per RN, spoke to pt PCP Dr. Hinds this morning and MD not able to round on pt until this evening closer to 1800 but feels Goals of Care discussion needed towards determining d/c planning needs. May order Psych Consult to better rule out any mental health/psych needs in her seeming lack of compliance/follow through with recommendations. SW placed Pall Care Consult order and emailed Tiny Brian regarding need for Goals of Care discussion. Per Hospital Systems Integration Engineer Dave, quite involved with support for pt and her friend/DPOA Nyasia and their desire not to go to SNF and to d/c home with possible Hospice but questions regarding alternative feeding options as pt has not had an appetite or ability to eat much. Previous attempt at SNF placement yielded no accepting SNF mostly due to pt's lack of good LTC plan and heavy care needs currently. These SNF's previously attempted: [facility]: declined, too complex [facility]: declined [facility]: declined [facility]: cannot accommodate pt's care needs [facility]: cannot accommodate care needs and full [facility]: could maybe do one time contract with [facility] but pt too complex [facility]: declined [facility]: declined [facility]: not contracted [facility]: not contracted [employer] No further SNF's attempted at this time as pt and DPOA are declining pt going to SNF and want to make a plan for home with maybe Hospice vs HH and caregivers pending Pall Care Consult. VLADIMIR spoke to DPJOSE Murrell via phone and she confirms she will be bedside for 1500 Pall Care Consult today and she requested SW faxed clinicals to pt's established Neurologist Dr. Muir in [place] as he is requesting to review pt's clinicals for further treatment recommendations and IMANI Nix kindly faxed the requested clinicals. SW made [facility] referral in anticipation of Hospice at d/c pending Pall Consult and IMANI Nix faxed clinical packet for Hospice to review. Plan: SW to follow closely after Pall Care Consult today towards determining d/c planning needs. MAMI Lunsford
--- NOTE | 2019-11-03 13:56 | PM.CN.PC.1 ---
History of Present Illness Consult details Date Patient Seen: 11/03/19 Time Patient Seen: 15:00 Chief complaint: Weakness Reason for consult: Palliative Medicine Consultation Requesting provider: Amber Hinds Narrative: Palliative medicine consultation received from Dr. Amber Hinds regarding her 39F, Shruti Terrazas, who presented to the emergency department for evaluation 10/29/2019 after a friend found her unable to ambulate independently, crawling around on all fours to get from room to room in her home. She has reportedly suffered from progressively worsening MS since the age of 11 but has managed up until now living independently. She has been followed by Dr. Durga Muir but has not seen him for many years. She has an appointment in early November. Friend reports that the patient has been failing over the past several months and now requires assistance with feeding and eating, unable to use utensils any longer, requires finger foods to self-feed. She is unable to move her upper extremities over her head any longer. It had been several days since friends had checked on Ms. Terrazas and they found her in a filthy conditions, curled up on the floor in her bathroom. She was noted to be suffering from severe protein calorie malnutrition, current BMI 16.4%. Patient was admit to the hospital with worsening MS and failure to thrive. On 10/13/2019 patient was noted to have suffered a decline overnight; she was NPO for a swallow study without benefit of IV fluids. She was found to be febrile with a heart rate >130, experiencing a decrease in her ability to communicate, worsening weakness. She has c/o fairly persistent abdominal pain as well. It was noted that the patient has been consuming minimal food and drinking little liquids, approximately 24 fl oz per day,and that she has suffered dramatic weight loss over the past few months. Patient has been diagnosed and treated with underlying UTI, and has been supported with IV fluids and IV antibiotics. Potassium has been replaced and dehydration replete with IV fluids. She has also been noted to suffer from anemia, likely due to a hemorrhagic ovarian cyst, which may be the cause of her ongoing abdominal discomfort. Her profound weakness and poor cognition have prompted a discussion about ongoing nutritional support and fluids by way of the gastrointestinal tract, and her [facility] has consented to short term tube feedings. Confusion noted to be potentially related to underlying infection and dehydration. It has been recommended to the patient that she consider d/c to a SNF for aggressive, restorative therapies in order to regain her strength; she has thus far declined this discharge plan in favor of returning home to independent living, and hospice has briefly been discussed with both the patient and her DPAHC. Social History: Patient has a DPAHC Nyasia Villanuevataina, who patient most trusts to help make medical decisions should she become incapacitated. She is estranged from family for the past 2 years. It is noted throughout medical team notes that the patient has difficulty reaching out and asking for help. Friend Nyasia has been available by telephone mostly since quarantine from pandemic early this year. Patient recently made Nyasia her DPAHC in the 2 days prior to this consultation. It is noted in the H&P that alcohol was found in the home but per the patient's friend and DPAHC, patient has not had an alcoholic beverage since February and the alcohol was not within reach of this very debilitated patient. It is noted by patient's primary provider that the patient has not sought evaluation or treatment from a neurologist for many years. Reason for consultation Because of the patient's profound general decline in clinical status over months, frailty evident by weakness, frequent falls, inability to provide of adequate self care, severe malnutrition (dramatic, unintentional weight loss, fatigue, lethargy) and given the possibility of an underlying, incurable medical illness, the medical team is of the belief that life expectancy is limited to weeks to months, and has requested clarification of this woman's specific medical goals. Reason for consultation Attending physician has requested palliative medicine to assist in furthering conversation with patient and family regarding the complex and sensitive medical issues of the perceived benefits/burdens of continued life prolonging treatments, realistic prognosis, perspectives on and dying, priority in clinical care and burden of physical, emotional and spiritual symptoms for patient and family. I have reviewed the medical record, radiographs, diagnostics, attempted to interview the patient (disoriented, no registration) and subsequently interviewed the patient DPOAHC. The following aspects are pertinent, current and remote medical history, social/emotional and family dynamics, current medications and effects, ROS, examination findings, prognosis, care planning, goal setting. Meds Home Medications and Allergies Home Medications Medication Instructions Recorded Confirmed Type ibuprofen [Advil] 400 mg PO PRN PRN #0 tab 11/11/12 10/31/19 History sertraline 100 mg PO DAILY 10/29/19 10/29/19 History Allergies Allergy/AdvReac Type Severity Reaction Status Date / Time glatiramer (copolymer 1) Allergy Severe unknown, Verified 11/02/19 09:12 [From Copaxone] but listed as critical interferon beta-1a Allergy Severe unknown, Verified 11/02/19 09:12 [From Avonex] but listed as critical Review of Systems Constitutional Constitutional: Reports as per HPI Exam Vital Signs (past 8 hours): - 11/03/19 09:20 11/03/19 11:15 Temperature 99.0 F 100.2 F H Pulse Rate 96 H 94 H Respiratory Rate 18 17 Blood Pressure 121/72 119/71 Pulse Oximetry 99 100 Oxygen Delivery Method Room Air Oxygen Flow Rate 0 Narrative Exam Narrative: Thin woman sits up in a chair at bedside, cousin and DPAHC are present for this dialogue today. Patient able to verbalize her needs. She does require some assistance with eating when dinner tray arrives. Able to swallow food without sputtering or coughing. Const General: cooperative, No healthy appearing, comfortable, well developed, frail appearing and ill appearing (chronically ill appearing.) Nutritional Appearance: malnourished Orientation: alert, awake and oriented x3 Resp Effort & Inspection: normal respiratory effort and able to speak in complete sentences Cardio Rate: regular rate Rhythm: regular rhythm Other: Per ECG Extrem General: normal to inspection and no clubbing, cyanosis or edema Objective Labs Result Diagrams: 11/08/19 06:40 11/08/19 06:40 Labs: Laboratory Results - last 24 hr 11/02/19 11/02/19 11/03/19 18:31 18:31 06:47 WBC 13.2 H 9.8 RBC 2.68 L 2.61 L Hgb 8.0 L 8.0 L Hct 23.5 L 22.9 L MCV 87.7 87.8 MCH 29.8 30.5 MCHC 34.0 34.8 RDW 17.0 H 17.2 H Plt Count 161 139 L Neut % (Auto) 93.9 H 91.2 H Lymph % (Auto) 2.9 L 4.2 L [place] % (Auto) 2.1 L 3.1 Eos % (Auto) 0.6 L 1.4 L Baso % (Auto) 0.5 0.1 Neut # (Auto) 24719 H 9000 H Lymph # (Auto) 400 L 400 L [place] # (Auto) 300 300 Eos # (Auto) 100 100 Baso # (Auto) 100 0 Sodium 135 L Potassium 3.7 Chloride 108 H Carbon Dioxide 20 L BUN 18 H Creatinine 0.68 Estimated GFR > 60.0 BUN/Creatinine Ratio 26.5 H Glucose 98 Calcium 8.0 L Total Bilirubin AST ALT Alkaline Phosphatase Total Protein Albumin Globulin Albumin/Globulin Ratio 11/03/19 06:47 WBC RBC Hgb Hct MCV MCH MCHC RDW Plt Count Neut % (Auto) Lymph % (Auto) [place] % (Auto) Eos % (Auto) Baso % (Auto) Neut # (Auto) Lymph # (Auto) [place] # (Auto) Eos # (Auto) Baso # (Auto) Sodium 136 L Potassium 3.0 L Chloride 110 H Carbon Dioxide 21 L BUN 13 Creatinine 0.65 Estimated GFR > 60.0 BUN/Creatinine Ratio 20.0 Glucose 125 H Calcium 7.8 L Total Bilirubin 0.4 AST 32 ALT 13 Alkaline Phosphatase 56 Total Protein 5.6 L Albumin 2.7 L Globulin 2.9 Albumin/Globulin Ratio 0.9 L Assessment & Recommendations A & R narrative: Discussion: Met with patient, her friend and DPAHC Nyasia Manzano, and cousin Lakshmi Yost. Patient very tearful and having difficulty accepting her decline and fairly poor tank terminal gauger prognosis, which appears to be measured in months, considering her precipitous decline, cachexia and weight loss, infectious processes. Focus of dialogue really focused on KARAN by way of the GI tract. Discussed risks versus benefits of treatment and education provided about tank terminal gauger natural consequences of PEG tube placement as well as briefly discussed code status. At this time, cousin expresses her desire to pursue at least an NG tube for short term sustenance, patient not very committal to this path. All are in agreement with avoiding SNF placmeent, and want her to go home, expressing their desire for HH and some sort of in home, private duty caregiving, however, they don?t seem to have funding for this. At this time, patient wishes to be a FULL CODE but does not wish for continued life sustaining treatment if she is ?brain ,? but had difficulty picturing a scenario where she was unable to wean off of a vent, requiring care home management in an institution with someone caring for her personal needs. Brief dialogue about hospice is entertained, possiblity of d/c home even with feeding tube if needed in this scenario, where a discharge home with HH would negate ability to keep NG in place, requiring more permanent feeding tube. Dinner arrives, and katlyn Martins assists patient with eating. Conversation ended at that point, though DPAHC and cousin expressed their gratitude for all of the information and education. They would like to reconvene on Friday for further dialogue regarding this challenging case. Updated the patient's primary provider and the care management team regarding the outcome of this palliative medicine consultation. Coding: To remain informed regarding current treatment opportunities, provider reviewed extensive additional documentation of multiple treatment providers/facilities which was utilized to update the management plan. Total time in review of additional medical information is 15 minutes, external to in person evaluation. Time in assessment and management of acute and chronic medical diagnoses, pertinent history to palliative medicine decision making, discussion and management of clinical findings enumerated above as well as fears regarding the transition to a more end of life plan and and dying is 32 minutes, more than half of which is necessary for education and counseling. Advanced Care Planning discussion time is 10 minutes. The patient currently has testamentary documents for estate planning, DPOAHC but lacks POLST and statement of wishes. Dialogue addresses patient preferences at the end/near end of life including resuscitation wishes (no CPR, DNAR), patient remains a FULL CODE at this time.
--- NOTE | 2019-11-03 14:41 | PT.IPTN ---
Physical Therapy Treatment Note M2 PT-IP Current Condition Start: 10/30/19 14:09 Freq: NEEDED Status: Active Protocol: Document 10/30/19 11:55 AB (Rec: 10/30/19 14:24 AB [id number]) Physical Therapy Current Condition Current Condition Evaluation Date 10/30/19 Treatment Diagnosis MS; failure to thrive; generalized weakness Onset Date 10/29/19 Precautions Other Precautions falls M3 PT-IP Subjective Start: 10/30/19 14:09 Freq: NEEDED Status: Active Protocol: Document 11/03/19 14:41 AB (Rec: 11/03/19 15:27 AB [id number]) Subjective Physical Therapy Visit Type Type Treatment Note Visit Start Time 14:41 Visit Stop Time 15:15 Total Visit Minutes 34 Number of MARKET RESEARCH ASSISTANT Visits 0 Physical Therapy Visit Comments Patient Comments agreeable to do PT M4 PT-IP Mobility and Gait Start: 10/30/19 14:09 Freq: NEEDED Status: Active Protocol: Document 11/03/19 14:41 AB (Rec: 11/03/19 15:27 AB [id number]) PT-Bed Mobility Assessment Supine to Sit Supine to Sit Maximum Assistance,2 Person Assistance,Head of Bed Elevated Scooting Scooting to Edge of Bed Dependent PT-Transfer Assessment Equipment Transfer Assistive Device Gait Belt Orthotic/Prosthetic Devices or Brace: No Transfers Transfer Destination Chair Transfer Technique Stand Pivot Transfer Ability Level of Assist Maximum Assistance,2 Person Assistance,Use of Upper Extremities Comments Mobility Comments completed supine to sit max A x 2 and max cues with HOB elevated. required mod to max A for sitting balance on EOB. conducted sitting balance activities on EOB: static sitting, increasing awareness of posture/alignment to midline, trunk leaning forward and back to center requiring mod to max A and cues. pt with increase lateral head leaning to the R with increase traps tighness noted. pt wanted to sit up on chair. completed stand pivot transfer with PT in front on pt and OT behind max A x 2 and max cues. positioned pt on chair. call light and table placed within reach. nurse stated that pt will be having a palliative care consult at 3 pm but is awaiting family at this time. PT-Balance Assessment Sitting Balance and Reactions Static Sitting Balance Ability Poor Dynamic Sitting Balance Ability Poor M5 PT-IP Objective Assessments Start: 10/30/19 14:09 Freq: NEEDED Status: Active Protocol: Document 10/30/19 11:55 AB (Rec: 10/30/19 14:24 AB [id number]) Orientation Orientation/Cognition Level of Alertness Alert Orientation Name Safety Awareness Decreased Safety Awareness Gross Range of Motion Lower Extremity ROM Assessment Within Functional Limits Strength Lower Extremity Strength Assessment Bilaterally Impaired Comments Strength Comments LLE: hip: 2+/5 knee: 3+/5 ankle: 1/10 RLE: hip: 3+/5 knee: 3+/5 ankle: 1/10 Coordination Assessment Gross Coordination Gross Coordination Impaired Sensation Assessment Sensation Light Touch Impaired Proprioception (Position) Impaired Sensation Description Numbness,Tingling Muscle Tone Muscle Tone WNL No M6 PT-IP Treatment Start: 10/30/19 14:09 Freq: NEEDED Status: Active Protocol: Document 11/03/19 14:41 AB (Rec: 11/03/19 15:27 AB [email or web address]) Physical Therapy Treatment Education Education Provided Safety M7 PT-IP Assessment and Plan Start: 10/30/19 14:09 Freq: NEEDED Status: Active Protocol: Document 11/03/19 14:41 AB (Rec: 11/03/19 15:27 AB [id number]) PT Summary Assessment and Plan Potential Rehabilitation Potential Fair Summary Impairments Pain,ROM,Strength,Balance, Coordination,Sensation,Tone, Cognition,Bed Mobility, Transfers,Gait,Activity Tolerance Progress Towards Goals Slow Progress due to Medical Issues,Slow Progress due to Activity Tolerance Assessment Summary pt continues to require max A x 2 with mobility but was able to follow directions better today compared to yesterday's. pt will need SNF rehab to improve strength and mobility. Goals Bed Mobility Goal Minimal Assistance Transfer Goal Minimal Assistance,Front Wheeled Walker Gait Goal Minimal Assistance,Front Wheel Walker Gait Distance 25 Days to Meet Goals 10 Frequency of Treatment Frequency Of Treatment Once a Day Treatment Plan Physical Therapy Treatment Plan Bed Mobility Training,Transfer Training,Gait Training, Therapeutic Exercise,Balance Retraining,Discharge Planning, Neuromuscular Re-ed, Coordination Retraining,Manual Therapy Other Recommendations and Next Treatment sitting bal/michelle, standing bal/ Focus michelle, transfers ambulation Recommendations To Nursing Amount of Assist Needed Mechanical Lift Discharge Recommendations PT Discharge Recommendations SNF Rehab Transportation Needs at Discharge Stretcher/Ambulance
--- NOTE | 2019-11-03 15:14 | OT.IP.TRT ---
Occupational Therapy Treatment Note M2 OT-IP Current Condition Start: 10/30/19 12:34 Freq: Status: Active Protocol: Document 10/30/19 12:34 CGR (Rec: 10/30/19 13:11 CGR [email or web address]) Occupational Therapy Current Condition Current Condition Evaluation Date 10/30/19 Treatment Diagnosis Generalized weakness Diagnosis Onset Date 10/29/19 M3 OT- IP Subjective and Pain Start: 10/30/19 12:34 Freq: Status: Active Protocol: Document 11/03/19 15:16 [facility] (Rec: 11/03/19 15:29 [facility] [id number]) OT- Subjective Occupational Therapy Visit Type Type Treatment Note Visit Start Time 14:43 Visit Stop Time 15:14 Total Visit Minutes 31 Occupational Therapy Visit Comments Patient Comments Pt agreed to get up for OT/PT. PT/OT cotxt due to pt needing extensive assist and education for needs. Patient/Caregiver Goals To get better. OT Pain Assessment Pain When Pain Assessed At Rest Pain Present Pain Present Pain Reported M6 OT- IP Functional Cognition Start: 10/30/19 12:34 Freq: Status: Active Protocol: Document 11/03/19 15:16 [facility] (Rec: 11/03/19 15:29 [facility] [id number]) Cognitive Factors Limiting Selfcare Function Cognitive Ability Level of Alertness Alert Patient Orientation Name Attention Span Ability Capable of Focused Attention, Capable of Sustained Attention Ability to Follow Commands Able to Follow One Step Commands with Increased Time, Able to Follow One Step Commands with Repetition Cognitive Comments Cognitive Assessment Comments Pt more alert today and able to joke around with PT. Pt better able to follow directions for bed mobility, sitting balance, and transfer needs today. OT- Vision and Hearing OT- Vision Assessment Vision Assessment Comments Pt not able to read the clock correctly today. M7 OT- IP Mobility and Balance Start: 10/30/19 12:34 Freq: Status: Active Protocol: Document 11/03/19 15:16 [facility] (Rec: 11/03/19 15:29 [facility] [id number]) OT- Bed Mobility Assessment Supine to Sit Supine to Sit Assist Maximum Assistance,1 Person Assistance Scooting Scooting to Edge of Bed Maximum Assistance,2 Person Assistance OT-Transfer Assessment Sit to and From Stand Sit to and from Stand Total Assistance,2 Person Assistance Transfers Transfer Ability Total Assistance,2 Person Assistance Technique Transfer Destination Bed,Chair Transfer Technique Stand Step Pivot Devices Transfer Assistive Devices Gait Belt Comments Mobility Comments Pt able to assist to move legs more to the edge of the bed and trying to assist more when trying to use her arms and trunk to be able to get upright but still needing MAX X 1. MAX A X 2 to scoot to the edge of the bed with use of green pad. Pt total assist x2 to stand pivot to the recliner at this time. Notified nursing aid pt may have started her menstrual cycle as noted green pad soiled. OT- Gait Assessment Comments Gait Ability Comments unable to perform OT- Balance Assessment Sitting Balance and Reactions Static Sitting Balance Ability Poor Dynamic Sitting Balance Ability Poor Standing Balance and Reactions Static Standing Balance Ability Poor Comments Other Balance Tests/Deviations/Treatment Noted tightness in right upper : traps and pt tends to laterally flex her head to the right. Able to do trigger point and gentle stretching to her neck and afterwards able to get closer to midline. However with exertion, pt tends to go back to position of lateral flexion to the right with slight tilt forwards. Pt educated on midline control for her trunk needing from sba when able to use her hand to brace on her legs to MAX Ax1. M8 OT- IP Objective Assessments Start: 10/30/19 12:34 Freq: Status: Active Protocol: Document 10/30/19 12:34 CGR (Rec: 10/30/19 13:11 CGR [id number]) OT Gross Range of Motion Upper Extremity Range of Motion Assessment Within Functional Limits OT Strength Upper Extremity Strength Assessment Bilaterally Impaired Comments Strength Comments Pts MS doesn't allow for consistant strength at this time. OT- Coordination Assessment Upper Extremity Finger to Nose Test Bilateral UE Impaired Finger Tapping Test Bilateral UE Impaired OT-Muscle Tone Assessment Muscle Tone WNL No Muscle Tone Location Bilateral Upper Extremity Type of Tone Hypertonicity,Flexor Severity of Tone Moderate Manifestation of Tone Fluctuation OT Sensation Assessment Edema Edema Absent M9 OT- IP Assessment and Plan Start: 10/30/19 12:34 Freq: Status: Active Protocol: Document 11/03/19 15:16 [facility] (Rec: 11/03/19 15:29 [facility] [id number]) OT Summary Assessment and Plan Potential Rehabilitation Potential Fair Analytic Complexity at Evaluation High Summary OT Impairments Pain,Range of Motion,Strength, Balance,Coordination,Tone, Functional Cognition, Functional Mobility,Self- Feeding,Grooming,Dressing, Toileting,Bathing,Toilet Transfers,Shower Transfers, Activity Tolerance Progress Towards Goals Progressing Toward Goals,Slow Progress due to Medical Issues ,Slow Progress due to Activity Tolerance Assessment Summary Pt increased insight after education of midline and trunk control and more alert to follow directions to try to initiate using her trunk muscle more today for sitting balance. Pt still dependent for transfer and would benefit from skilled rehab first to help maximize her level of independence, educated for equipment needs and then afterwards would require 24/7 assist at home. Pt has the potential to get stronger so to be able to assist more with her needs versus just being dependent on others for all her needs. Pt having palliative consult today. Goals Self-Feeding Goal Independent Grooming Goal Independent Dressing Goal Independent Toileting Goal Minimal Assistance Bathing Goal Minimal Assistance Toilet Transfer Goal Minimal Assistance Shower Transfer Goal Minimal Assistance Days to Meet Goals 20 Frequency of Treatment Frequency Of Treatment Once a Day Treatment Plan OT Treatment Plan ADL Training,Functional Cognition Training,Functional Mobility,Patient/Family Education,Discharge Planning Other Treatment Recommendations and Next Pt would benefit from formal Treatment Focus cog assessment when pt appears to be closer to her baseline. Grooming while sitting at edge of bed. Discharge Recommendations OT Discharge Recommendations SNF Rehab Other Discharge Recommendations If SNF unable to accept pt, pt will need 24/7 assist. Home Equipment Needs TBD Transportation Needs at Discharge Wheelchair/Cabulance
--- NOTE | 2019-11-03 15:55 | DIET.PN ---
Dietary Progress Note RD f/u as pts POs averaging 25-50% tray, pt working c SLT daily, pts DPOA ordering all pts meals based on pts preferences. Breakfast tomorrow is scrambled eggs, breakfast potatoes (no skins), honey yogurt, honey thick orange juice, honey thick chocolate Ensure Enlive (this is her breakfast everyday during this hospitalization). Recc sending honey thick chocolate Ensure Enlive tid to supply 1250kcals and 60g PRO providing 100% EER in addition to meal trays. Concern for pts hydration as honey thick liquids difficult to attain adequate hydration. Pt reports openness to PEG placement for medium to supervisor intermediates feeding/hydration, this may be best way to ensure adequate hydration if pts fluid texture does not change from honey-thick. HT: 157.48cm WT: 40.6kg (-0.9kg) UBW: 59kg x1 yr ago per pt recall BMI: 16.4 PO': 25-50% MNA: 12 Dave: 18 Nutrition Diagnosis: Severe chronic PCM r/t alteration in GI function/ difficulty caring for self aeb energy intake <75% EER > 1mo, >20% wt loss in 1 yr, BMI 16.7. Interventions: 1. Recc ONS honey thick Enlive tid to support PCM 2. If pt receives PEG placement at , this RD happy to provide formula and calculate needs, please trigger nutrition consult in this case. Diet Order: Dysphagia honey/mech soft EER: 1300 tiffany @ 30cal/kg ; 54g pro (1.3) Monitoring/Evaluations: weight, PO intake, ONS acceptance Initialized on 11/01/19 12:06 - END OF NOTE
[2019-11-03] MEDS: SODIUM CHLORIDE 0.9% FLUSH 10 ML IV (19:33)
[2019-11-03] MEDS: SERTRALINE 50 MG TABLET 100 MG PO (19:34)
[2019-11-03] MEDS: MORPHINE 2 MG/ML INJ 1 MG IV (19:34)
[2019-11-03] MEDS: MORPHINE 2 MG/ML INJ IV (21:32)
[2019-11-03] MEDS: CALCIUM CARBONATE 500 MG TAB PO (21:38)
[2019-11-04] VITALS: BP 100/57; PULSE 60; RESP 16; TEMP 36.5; O2SAT 96
[2019-11-04] MEDS: DEXTROSE 5%-0.9% NS 1,000 ML 150 ML IV (00:22)
[2019-11-04] MEDS: IBUPROFEN 400 MG TABLET PO ×6 (00:53→22:27)
[2019-11-04] MEDS: LORazepam 2 MG/ML INJ 0.5 MG IV ×2 (00:53→21:46)
[2019-11-04 05:51] LABS: Hemoglobin 7.5 g/dL (12.0-16.0); Mean Corpuscular HGB Conc 34.1 % (30-36); Mean Corpuscular Hemoglobin 30.2 PG (26-34); Mean Corpuscular Volume 88.5 fL (80-100); Platelet Count 123 X10^3/uL (150-400); Red Blood Cell Count 2.48 X10^6/uL (4.0-5.2); Red Cell Distribution Width 16.9 % (11.6-14.8); White Blood Cell Count 5.3 X10^3/uL (4.5-11.0)
[2019-11-04 05:58] LABS: BUN Creatinine Ratio 19.3 (6-22); Blood Urea Nitrogen 11 mg/dL (7-17); Carbon Dioxide 21 mmol/L (22-32); Chloride 112 mmol/L (98-107); Estimated Glomerular Filt Rate > 60.0 mL/min (>60); Glucose 129 mg/dL (70-100); HEMOLYSIS < 15 (0-50); Potassium 3.2 mmol/L (3.4-5.1); Sodium 138 mmol/L (137-145)
[2019-11-04 06:00] VITALS: BP 115/68; PULSE 78; RESP 16; TEMP 36.6; O2SAT 98
[2019-11-04 06:09] LABS: Neutrophils Absolute Manual 4770 /uL (3000-5900); Total Cells Counted 100
[2019-11-04 06:12] LABS: Anisocytosis 1+
--- NOTE | 2019-11-04 06:48 | PM.PN.1 ---
Subjective Subjective Date Patient Seen: 11/04/19 Time Patient Seen: 06:48 Interval history: Feeling better today. Reports that her cognition has improved. NG tube now in place and infusing. Denies any worsening pain. Ocampo in place, clear urine. On 3rd day of IV antibiotics. Afebrile. ANA MARÍA Nyasia Manzano is at the bedside along with her . Exam Vital Signs (past 8 hours): - 11/04/19 00:00 11/04/19 06:00 Temperature 97.7 F 97.8 F Pulse Rate 60 78 Respiratory Rate 16 16 Blood Pressure 100/57 L 115/68 Pulse Oximetry 96 98 Oxygen Delivery Method Room Air Oxygen Flow Rate 0 Narrative Exam Narrative: GENERAL: Alert and oriented, appearing stated age and in no acute distress, very thin. HEENT: Head normocephalic/atraumatic. Pupils equal, round, and reactive to light and accomodation. Extraocular muscles intact. Tympanic membranes clear. Nasal mucosa moist, septum midline. Oral mucosa moist, no lesions. Neck soft and supple, no lymphadenopathy. LUNGS: Clear to ausculation bilaterally, no wheezes, rhonchi or rales. CV: Normal S1 and S2 with regular rate and regular rhythm, no audible murmurs, rubs or gallops. ABDOMEN: Soft, non-tender, non-distended, no organomegaly. Positive bowel sounds. EXTREMITIES: No clubbing, cyanosis, or edema. NEURO: Legs spastic during interview, voice dysphonic. Gait not tested. PSYCH: Alert and oriented x 3. SKIN: bruised, bilateral lower extremities. No concerning lesions. Objective Labs Result Diagrams: 11/04/19 05:33 11/04/19 05:33 Labs: Laboratory Results - last 24 hr 11/03/19 11/03/19 11/04/19 06:47 06:47 05:33 WBC 9.8 5.3 RBC 2.61 L 2.48 L Hgb 8.0 L 7.5 L Hct 22.9 L 22.0 L MCV 87.8 88.5 MCH 30.5 30.2 MCHC 34.8 34.1 RDW 17.2 H 16.9 H Plt Count 139 L 123 L Neut % (Auto) 91.2 H Lymph % (Auto) 4.2 L Roosevelt % (Auto) 3.1 Eos % (Auto) 1.4 L Baso % (Auto) 0.1 Neut # (Auto) 9000 H Lymph # (Auto) 400 L Roosevelt # (Auto) 300 Eos # (Auto) 100 Baso # (Auto) 0 Total Counted 100 Seg Neutrophils % 87.0 H Band Neutrophils % 3.0 Lymphocytes % (Manual) 9.0 L Monocytes % (Manual) 1.0 L Neutrophils # (Manual) 4770 RBC Morphology See below Anisocytosis 1+ H Sodium 136 L Potassium 3.0 L Chloride 110 H Carbon Dioxide 21 L BUN 13 Creatinine 0.65 Estimated GFR > 60.0 BUN/Creatinine Ratio 20.0 Glucose 125 H Calcium 7.8 L Total Bilirubin 0.4 AST 32 ALT 13 Alkaline Phosphatase 56 Total Protein 5.6 L Albumin 2.7 L Globulin 2.9 Albumin/Globulin Ratio 0.9 L 11/04/19 05:33 WBC RBC Hgb Hct MCV MCH MCHC RDW Plt Count Neut % (Auto) Lymph % (Auto) Roosevelt % (Auto) Eos % (Auto) Baso % (Auto) Neut # (Auto) Lymph # (Auto) Roosevelt # (Auto) Eos # (Auto) Baso # (Auto) Total Counted Seg Neutrophils % Band Neutrophils % Lymphocytes % (Manual) Monocytes % (Manual) Neutrophils # (Manual) RBC Morphology Anisocytosis Sodium 138 Potassium 3.2 L Chloride 112 H Carbon Dioxide 21 L BUN 11 Creatinine 0.57 Estimated GFR > 60.0 BUN/Creatinine Ratio 19.3 Glucose 129 H Calcium 8.0 L Total Bilirubin AST ALT Alkaline Phosphatase Total Protein Albumin Globulin Albumin/Globulin Ratio Assessment & Plan Assessment & Plan narrative: 39-year-old female with untreated severe end-stage MS that is slowly and progressively declining;now exacerbated by UTI as well as chronic and severe protein calorie malnutrition, HD #5 1. UTI, acute. -Urine culture showed e-coli. -Blood cultures negative. -WBC trending down 13.2 on 11/02/19 --> 9.8 on 11/03/19 --> 5.3 on 11/04/19. PLAN: IV ceftriaxone, tylenol prn, fluids, trend CBC. 2. Dehydration, improving PLAN: D51/2NS + 40 KCL at 150 cc an hour, NG tube feeds. 3. Hypokalemia, improving PLAN: Please see #2. 4. Acute anemia of unclear etiology. Suspect secondary to chronic malnutrition and probably dilutional from the IVF during admission. -Stool FOB pending. -H/H 8.0/23.5 on 11/02/19 --> H/H 8.0/22.9 on 11/03/19 --> 7.5/22.0 on 11/04/19 PLAN: Will treat underlying malnutrition with NG tube feeding, nutrition consulting. 5. MS, relapsing and remitting, currently relapsed, slow chronic decline after 4 years of minimal/no MS treatment. -Barium swallow showed tracheal aspiration. -Swallow study shows honey thick diet recommended, patient unable to orally consume adequate calories. NG-tube placed on 11/04/2019. [facility]. -Discussion with outpatient neurologist, Dr. Muir on afternoon of 11/04/19. He recommended that patient may gain function back after this relapse. Recommended transfer to MS center after UTI is treated for initiation of MS therapy with eventual transition to long-term rehab facility to see if she can get back to her baseline. PLAN: Consult with tertiary center in [place] tomorrow for inpatient transfer for MS relapse in setting of UTI, FTT, severe chronic protein calorie malnutrition, anemia, high social risk status, etc. 6. Failure to thrive -Alienated from support network, only has one close friend involved in her life (DPOA). Has been estranged from her family for the last 2 years. Some family in the area (cousin in [place], 18 year-old daughter in [place] who lives with her dad), brother and aunt out of state. Nobody is available to live with her and provide close and ongoing 24/7 care that would be needed for her to return home. -Has been unable to afford treatment for her MS for the last 4 years. -Psychiatric consult, Dr. Wright on 11/04/2019. Did not feel that depression was a major component of her failure to thrive. -NG tube placed 11/04/19, nutrition consulting. PLAN: After hearing Dr. Muir' prognosis today, patient hopeful to regain some of her function and potentially even approach her baseline. Very open to transferring to [place] for care if that will mean getting the treatment she needs to get better. Continue NG tube per nutrition orders. 7. Severe chronic protein calorie malnutrition PLAN: Please see #6. 8. Acute metabolic encephalopathy, improving with UTI treatment PLAN: Treatment as above, close monitoring. 9. Tachycardia, likely multifactorial from dehydration and febrile illness (likely UTI), resolved. 10. Right ovarian hemorrhagic cyst, 4 cm, new. Possible cause for her ongoing chronic complaint of abdominal pain, especially if she had one burst recently. -Will consult with Gynecology as outpatient. -Repeat ultrasound in 6 weeks for surveillance. 11. History of alcohol abuse. -Patient claims she is no longer drinking but told her neurologist 4 months ago that she was drinking 9 shots of whiskey daily. PLAN: [facility] protocol. 12. Marijuana abuse. -Reports continuous use of marijuana at home. -DPOA asked if they could give this to her in the hospital to help calm her nerves and help her sleep. PLAN: Told DPOA that she could not bring in outside THC to the hospital to administer to patient. PRN lorezapam already ordered. Code: Full DVT prophylaxis: Lovenox Disposition: Will work on inpatient transfer to [facility] tomorrow morning. Quality VTE Deep Vein Thrombosis/Pulmonary Embolism Present on Admission: No
--- NOTE | 2019-11-04 08:05 | PC.NURSE ---
Clarification needed on potassium order from this morning, spoke to pharmacist and she will attempt to reach MD to clarify. Will continue to follow.
[2019-11-04] MEDS: POTASSIUM CHLORIDE 40 MEQ in SODIUM CHLORIDE 0.45% 500 ML 130 MEQ IV ×2 (09:15→15:05)
--- NOTE | 2019-11-04 09:39 | P.CONS_ITS ---
History of Present Illness Consult details Date Patient Seen: 11/04/19 Time Patient Seen: 08:20 Chief complaint: Weakness Reason for consult: Psychiatric consultation pending hospice referral Requesting provider: Argenis Hinds Narrative: CHIEF COMPLAINT: ?Was not doing so good? HISTORY OF PRESENT ILLNESS: The patient is a 39-year-old female who presented to the emergency department for evaluation on 10/29/2019 after a good friend found her unable to ambulate independently and was crawling around on all fours. At the time she was found, she was on the floor the bathroom, had soiled herself and was and able to clean herself up. She was shivering and wrapped herself in tells in order to keep warm. It had been apparent to the friend that she was clearly unable to care for herself. The patient has a history of MS since the age of 11 but has been able to live independently up until now. She had been followed by Dr. Muir, neurologist, for many years but has not seen him in several years due to the loss of health insurance after she her . At the time that her friends found her, she had not been seen in several days and was suffering from malnutrition and dehydration. The patient was admitted to the hospital with a diagnosis of worsening MS and failure to thrive. The patient was febrile, had difficulty communicating, and was quite weak. She was also drinking and consuming minimal food and water. The patient was diagnosed with an underlying UTI and has been supported with IV fluids and antibiotics. During the course of her workup and treatment, it has been suggested that she consider discharge to a long term facility for more aggressive and restorative therapies in order to regain her strength. Unfortunately, the nearest facility would be [place] and the patient?s entire life and support system is in [place]. She adamantly refuses to go to [place] and has expressed a plan, albeit unrealistic, to return to her home here in [place]. COLLATERAL FROM STAFF: With IV fluids in improved nutrition the patient has gradually improved. She interacts appropriately but there is some variability in her focus and cognition. PAST PSYCHIATRIC HISTORY: The patient reports a prior history of depression dating back many years that has been successfully treated with sertraline. She is currently taking 100 mg per day. SUBSTANCE USE HISTORY: There is a history noted of alcohol abuse in the past with some variability in current intake and reporting. The patient denies any recent alcohol abuse but the chart notes that the patient may not have had any alcohol since February. FAMILY HISTORY: The patient denies any family psychiatric history DEVELOPMENTAL AND SOCIAL HISTORY: The patient was born and raised in [place]. She describes a generally unremarkable childhood except at the age of 11 she contracted MS. She had some difficulty in high school when her right leg became nonfunctional during a particularly acute bout of MS. 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 She has a daughter as a result of a relationship with her [employer] school s codie. She later a fellow co-worker from the [employer] where she worked. This lasted about 9 years and ended in divorce. Since leaving her , the patient has had to live off disability income and her insurance options are extreme is limited. She has a very close group of friends who provide some support and her daughter currently lives here in [place] with her biological father. PCP: DR. ARGENIS HINDS SIGNIFICANT MEDICAL HISTORY: As Noted Above, Ms Since The Age Of 11 Meds Home Medications and Allergies Home Medications Medication Instructions Recorded Confirmed Type ibuprofen [Advil] 400 mg PO PRN PRN #0 tab 11/11/12 10/31/19 History sertraline 100 mg PO DAILY 10/29/19 10/29/19 History Allergies Allergy/AdvReac Type Severity Reaction Status Date / Time glatiramer (copolymer 1) Allergy Severe unknown, Verified 11/02/19 09:12 [From Copaxone] but listed as critical interferon beta-1a Allergy Severe unknown, Verified 11/02/19 09:12 [From Avonex] but listed as critical Exam Vital Signs (past 8 hours): - 11/04/19 06:00 Temperature 97.8 F Pulse Rate 78 Respiratory Rate 16 Blood Pressure 115/68 Pulse Oximetry 98 Oxygen Delivery Method Room Air Oxygen Flow Rate 0 Narrative Exam Narrative: MENTAL STATUS EXAM: Appearance: The patient is a slender and cachectic appearing female dressed in hospital pj's and lying in her hospital bed. She appears older than her stated age of 39. Behavior: The patient is pleasant, calm, and cooperative with the evaluation. Eye contact: Eye contact is good Gait: Not ambulatory Speech: Slow and measured, normal tone, Mood: ?Pissed.? Affect: Generally euthymic, with occasional episodes of tearfulness, particularly when discussing painful issues such as severity of her illness, , leaving [place]. Congruent with thought content. Thought Process: Generally Linear, logical, goal-directed Thought Content: Thought content is without any suicidal or homicidal ideation, intent, or plan. There was no evidence of formal thought or perceptual disturbance. Attention: Attentive to interview Orientation: Oriented to person place and time Memory: Intact for interview, not formally tested Insight: Fair Judgment: Fair Objective Labs Result Diagrams: 11/04/19 05:33 11/04/19 05:33 Labs: Laboratory Results - last 24 hr 11/04/19 11/04/19 05:33 05:33 WBC 5.3 RBC 2.48 L Hgb 7.5 L Hct 22.0 L MCV 88.5 MCH 30.2 MCHC 34.1 RDW 16.9 H Plt Count 123 L Total Counted 100 Seg Neutrophils % 87.0 H Band Neutrophils % 3.0 Lymphocytes % (Manual) 9.0 L Monocytes % (Manual) 1.0 L Neutrophils # (Manual) 4770 RBC Morphology See below Anisocytosis 1+ H Sodium 138 Potassium 3.2 L Chloride 112 H Carbon Dioxide 21 L BUN 11 Creatinine 0.57 Estimated GFR > 60.0 BUN/Creatinine Ratio 19.3 Glucose 129 H Calcium 8.0 L Assessment & Plan Assessment and plan (1) Adult failure to thrive: Status: Acute (2) Multiple sclerosis: Status: Chronic (3) Depression: Status: Acute Assessment & Plan narrative: ASSESSMENT: Shruti Terrazas is a 39-year-old woman with a long history of multiple sclerosis dating back to age 11. She has not been seen by her neurologist for several years due to loss of insurance following divorce from her . She had been able to live independently until several weeks ago when worsening symptoms occurred and even the most devoted efforts by her friend or unable to sustain her appropriately. The patient was found on 10/29/2019 on the floor of her bathroom source old, shivering, wrapped in a towel, and apparently dehydrated and malnourished. After several days in the hospital, she appears to be much improved with respect to nutrition and hydration, but still may be suffering from a UTI. We are asked to assess the patient's psychiatrically as the home team is considering placement disposition and a referral to hospice because the progression of the patient's multiple sclerosis symptoms. The patient is adamant about not being sent to a long term facility, but this is clearly unrealistic and she appears to be slowly coming to the conclusion that she will be unable to live at home independently. It is not clear that the patient still has accepted the level of severity of the MS progression and occasionally talks about goals far in the future that her clearly unrealistic given her current physical condition. Patient does not appear to currently be suffering from depression and sertraline at current dose is adequate for the time being. DIAGNOSES: Major depressive disorder by history RECOMMENDATIONS: 1. Continue sertraline 100 mg PO QDay. 2. From a psychiatric perspective, the patient is currently competent to make decisions regarding her medical care and disposition. 3. I am happy to continue to follow the patient during her inpatient stay and assist in providing support regarding treatment and placement disposition discussions. 4. The patient may be more receptive to discussing appropriate post discharge disposition options as her condition improves. She will likely benefit from approaching difficult discussions gradually and with the assistance of her close friends who provide a significant level of support for her. They clearly understand that they cannot provide the level of care that she now requires and may be helpful in broach in this to the patient in a way that she can accept. Time Spent With Patient Time with patient: Greater than 35 minutes
[2019-11-04] MEDS: ENOXAPARIN 40 MG/0.4 ML SYRINGE SUBCUT (09:59)
[2019-11-04] MEDS: MULTIVITAMIN 1 TABLET 1 TAB PO (10:00)
[2019-11-04] MEDS: THIAMINE 100 MG TABLET PO (10:00)
[2019-11-04] MEDS: FOLIC ACID 1 MG TABLET PO (10:01)
[2019-11-04 10:16] VITALS: BP 117/57; PULSE 69; RESP 18; TEMP 36.9; O2SAT 98
--- NOTE | 2019-11-04 11:18 | ST.IPDYTX ---
Visit Care Team Role Provider Type JAMI De La Roas Other Providers [employer] Tractor Operator Specialty: [facility] Practice Address: [address] [place] [address], [facility] Email: [email or web address] He Wellington MD Family Provider Non-Staff Primary Care Provider Specialty: [facility] Address: [address] [place] [address], [id number] Email: [email or web address] DO Emergency Provider Physician Specialty: Emergency Medicine Address: [address] [place] [address], [address] Email: [email or web address] Amber Hinds MD Attending Provider Physician Specialty: [facility] Address: [address] [place] [address], [facility] Email: [email or web address] Sal Olson MD Admit Provider Physician Other Providers Specialty: Internal Medicine Address: [address] [place] [address], [address] Email: [email or web address] ARTILLERY MAINTENANCE SUPERVISOR Dysphagia Treatment ARTILLERY MAINTENANCE SUPERVISOR Dysphagia Treatment Start: 10/30/19 15:37 Freq: Status: Active Protocol: Document 11/04/19 10:07 LNK (Rec: 11/04/19 11:18 LNK [id number]) Dysphagia Treatment Session Time Visit Start Time 09:00 Visit Stop Time 09:30 Total Visit Minutes 30 Setting Assessment Location Acute Care Visit Type Note Type Treatment Note Patient Information Identification Type Name,ID Wristband Subjective Observations Pt was in bed with breakfast tray nearby. Pt indicated she was not hungry. Treatment Treatment Activities PO trials were not completed secondary to pt's preference. Pt's ANA MARÍA, Nyasia, arrived during session. Education was provided for Pt and Nyasia re: home preparation for current diet (honey thick and dysphagia mechanical texture). Continued education/ instructions regarding aspiration risk and precautions when eating. Pt and Nyasia had questions about tube feeding (nasal tube vs PEG) and PO intake with tube feedomg. This ARTILLERY MAINTENANCE SUPERVISOR indicated that as long as the recreational foods were within the guidelines of pt's current diet, she could have them. Pt and Nyasia had many questions which were referred to nursing and MD. Pt is anxious to have meting with neurologist, Dr. Muir. Pt is safely tolerating current diet. No overt s/sx aspiration Assessment Patient Response to Treatment Excellent Rehab Potential Fair Diet Recommendations Recommendations Continue Current Diet Aspiration Precautions Recommended Precautions Upright at 90 Degrees,Frequent Rest Periods,Small Bites/Sips Additional Precautions Keep HOB at 30 degrees to assist esophageal emptying. Treatment Plan Placement Recommendation after Discharge Group Home Facility Appropriate for Continued Therapy Yes
[2019-11-04 11:58] VITALS: BP 115/74; PULSE 82; RESP 17; TEMP 36.8; O2SAT 98
[2019-11-04] MEDS: CEFTRIAXONE 1 GM/50 ML FROZ.PIGGY IV (12:37)
--- NOTE | 2019-11-04 12:49 | DIET.PN ---
Dietary Progress Note Assessment: 39y F found down by friend admitted for weakness secondary to MS and acute UTI. Pt has mechanical soft/honey thick dysphagia diet c 1:1 feeding by friend and ANA MARÍA Murrell. ONS Ensure Enlive is offered with each meal tray. Despite best efforts pt consuming <25% EERs and is failing ONS nutrition therapy. SLT and RD are recommending NG tube feeding at this time to replete pt while waiting to assess progression of MS c neurologist as pt has severe low BMI at 16.4, is 20% below ideal body weight, and unlikelihood that adequate hydration or EERs will be attained via PO. HT: 157.4cm WT: 40.7kg UBW: 59kg BMI: 16.4 (severe) Nutrition Diagnosis: ONGOING Severe chronic PCM r/t difficulty caring for self aeb energy intake <75% EER > 1mo, >20% wt loss in 1 yr, BMI 16.7, pt eating finger foods only r/t dysarthria. Interventions: 1. Recc placement of NG tube for nutrition support. 2. Recc Continuous NG feeding of Glucerna 1.5 with goal rate of 35mL/h. Start at 20mL/h for first 12h then increase to goal as tolerated. 150mL free water flushes q4h if no IV fluids Provides 1260kcal (100%), 69g PRO (120%) and 1538mL free water 3. Recc transitioning to cyclic feeding after 24h. Diet Order: dysphagia EER:1300 tiffany @ 30cal/kg ; 54g pro (1.3) Monitoring/Evaluations: following daily, RD can be reached @ [id number]
--- NOTE | 2019-11-04 12:52 | CM.DPNOTE ---
Addendum entered by MAMI Spicer 11/04/19 14:10: Updated now by Dr Hinds- she has spoken to patient's neurologist who is recommending transfer to higher level of care where neurology is available.. if patient/DPOA agreeable, Dr Hinds will begin these efforts. Original Note: DCP Cont Reviewed chart; reviewed placement efforts. Placed call to Dr Hinds, asked about patient's plan to return home (?) Dr Hinds agrees w/this LIFE TEACHER- this is not a realistic plan. Patient has refused Hospice service at this time and there are no friends or family at this time that can provide 24-[address] Hinds requests this LIFE TEACHER continue SNF search (w/[facility]) as patient requires a skilled level of care. JAE is pending. This LIFE TEACHER requests that Dr Hinds be present for a patient/family conference w/this LIFE TEACHER, potentially RN and a member from therapy team (?) Dr Hinds unable to do bedside visit today before [id number], this LIFE TEACHER ends shift at 1630 and will return tomorrow at 0800. Placed call to Dave Harris, assigned CM from [facility] ([facility]) P# [phone] F# [phone], he requests a phone assessment w/patient [id number] at 1330, he cannot accommodate a time sooner than that. His team no longer does bedside assessments d/t the COVID-19 pandemic. If patient cannot complete assessment by phone, Dave may need assist from nursing and/or DPOA Nyasia. faxed Dave clinical packet to assist in his assessment process. Once assessment is completed, he sends to the [facility] placement team who begin a search throughout the state for usp care placement. If patient transitions to Hospice service, this will assist any facility w/DME and additional nursing care. Placed call to [facility] again- Full. Placed call to [facility] Rios, they are beginning to accept patients this upcoming [facility]. Will also fax to Brian. Will broaden SNF search, updated note to follow as facilities are faxed. MAMI Spicer
[2019-11-04] MEDS: OXYCODONE IR 5 MG TABLET PO (13:57)
--- NOTE | 2019-11-04 14:43 | PT-IP ANOTE ---
Per RN, hold treatment this PM d/t NG tube placement occurring soon and low H&H. Will check back in AM.
--- NOTE | 2019-11-04 14:55 | OT.IPNOTE ---
Per nursing, pt to have NG tube placed and having low H and H today, therefore hold from OT.
--- NOTE | 2019-11-04 15:26 | DI.RAD.S_ITS ---
PROCEDURE: XR CHEST 1V INDICATIONS: feeding tube placement confirmation TECHNIQUE: One view of the chest was acquired. COMPARISON: [facility], CR, XR CHEST 2V, 11/02/2019, 12:21. FINDINGS: Surgical changes and devices: Weighted tip feeding tube is within the gastric cardia/body junction.. Lungs and pleura: Lungs are likely clear but the patient is somewhat tilted rightward crowding bronchovascular markings on the right.. No pleural effusions or pneumothorax. Mediastinum: Mediastinal contours appear normal. Heart size is normal. Bones and chest wall: No suspicious bony lesions. Overlying soft tissues appear unremarkable. IMPRESSION: Weighted tip feeding tube within the gastric lumen. Patient tilt rightward, probable atelectasis right lung base but mild or early pneumonia or aspiration conceivably could be present in that area also. Dictated by: John Andujar M.D. on 11/04/2019 at 16:17 Approved by: John Andujar M.D. on 11/04/2019 at 16:18
--- NOTE | 2019-11-04 15:33 | PC.NURSE ---
Order rec'd from URIAH Merino primary per Dr. Hinds to insert Nasogastric feeding tube. Pt verbally agreed with plan to insert feeding tube. Pt's 2 friends at bedside as well who provide personal care for the pt. Explained risks and benefits of insertion and explained insertion process. No further questions. URIAH Oliver float also present at bedside for assist in placement. Nare patency checked and pt agreed left nare was better for insertion as her right nare she felt she could breath better. NG feeding tube 8F inserted to 50 cm brendan at opening of nare through left nare per hospital policy and protocol. O2 sats remained at 96-98% throughout insertion process, pt had no coughing. Assessed oral cavity and tube seen towards left side of throat. Stylet left in place, secured tube to nose and secured to gown with safety pin. Portable Xray taken at 1535. Awaiting Xray confirmation for proper placement. Primary URIAH shook.
[2019-11-04 15:55] VITALS: BP 122/72; PULSE 103; RESP 18; TEMP 36.7; O2SAT 96
[2019-11-04 20:16] VITALS: BP 117/66; PULSE 79; RESP 18; TEMP 37.1; O2SAT 98
[2019-11-04] MEDS: POTASSIUM CHLORIDE IV (22:28)
[2019-11-04] MEDS: DEXTROSE IV (22:28)
[2019-11-04] MEDS: SERTRALINE 50 MG TABLET 100 MG PO (22:28)
[2019-11-04] MEDS: SOD CHLORD IV (22:28)
[2019-11-05] VITALS (7 sets, daily range): BP systolic 107–121; BP diastolic 58–71; PULSE 70–82; RESP 17–21; TEMP 36.6–36.9; O2SAT 96–99
[2019-11-05] MEDS: IBUPROFEN 400 MG TABLET PO ×3 (01:30→08:58)
[2019-11-05] MEDS: POTASSIUM CHLORIDE IV (05:18)
[2019-11-05] MEDS: SOD CHLORD IV (05:18)
[2019-11-05] MEDS: DEXTROSE IV (05:18)
--- NOTE | 2019-11-05 06:01 | P.PN_ITS ---
Subjective Subjective Date Patient Seen: 11/05/19 Time Patient Seen: 06:01 Interval history: Feeling tired this morning but denies pain. Getting used to NG tube and is hopeful that she can get the nutrition she needs to start recovering. Now, excited to be going to [place] for specialty care for her MS, wants to get better. Wants to start medication. Having just bites of food, no choking episodes yesterday. Ocampo in place. Did not do PT/OT yesterday as she was so tired from all of the other consults. Exam Vital Signs (past 8 hours): - 11/05/19 01:30 11/05/19 04:06 Temperature 98.3 F Pulse Rate 82 80 Respiratory Rate 17 21 Blood Pressure 110/60 110/65 Pulse Oximetry 99 97 Oxygen Delivery Method Room Air Oxygen Flow Rate 0 Narrative Exam Narrative: GENERAL: Alert and oriented, appearing stated age and in no acute distress, very thin. HEENT: Head normocephalic/atraumatic. Pupils equal, round, and reactive to light and accomodation. Extraocular muscles intact. Tympanic membranes clear. Nasal mucosa moist, septum midline. Oral mucosa moist, no lesions. Neck soft and supple, no lymphadenopathy. LUNGS: Clear to ausculation bilaterally, no wheezes, rhonchi or rales. CV: Normal S1 and S2 with regular rate and regular rhythm, no audible murmurs, rubs or gallops. ABDOMEN: Soft, non-tender, non-distended, no organomegaly. Positive bowel sounds. EXTREMITIES: No clubbing, cyanosis, or edema. NEURO: Legs spastic during interview, voice dysphonic. Gait not tested. PSYCH: Alert and oriented x 3. SKIN: bruised, bilateral lower extremities. No concerning lesions. Objective Labs Result Diagrams: 11/05/19 05:57 11/05/19 05:57 Labs: Laboratory Results - last 24 hr 11/04/19 11/04/19 05:33 05:33 Total Counted 100 Seg Neutrophils % 87.0 H Band Neutrophils % 3.0 Lymphocytes % (Manual) 9.0 L Monocytes % (Manual) 1.0 L Neutrophils # (Manual) 4770 RBC Morphology See below Anisocytosis 1+ H Sodium 138 Potassium 3.2 L Chloride 112 H Carbon Dioxide 21 L BUN 11 Creatinine 0.57 Estimated GFR > 60.0 BUN/Creatinine Ratio 19.3 Glucose 129 H Calcium 8.0 L Assessment & Plan Assessment & Plan narrative: 39-year-old female with untreated severe end-stage MS that is slowly and progressively declining;now exacerbated by UTI as well as chronic and severe protein calorie malnutrition, HD #6 1. UTI, acute, appears resolved. -Urine culture showed e-coli. -Blood cultures negative. -WBC trending down 13.2 on 11/02/19 --> 9.8 on 11/03/19 --> 5.3 on 11/04/19 --> 5.1 on 11/05/19. PLAN: IV ceftriaxone x 4 days, will stop now. Continue tylenol as needed and trend CBC. 2. Dehydration, treated and resolved. PLAN: Will hep-lock IVF, continue NG tube feeds, free water in tube feeds. 3. Hypokalemia, treated and resolved. PLAN: Please see #2. 4. Acute anemia of unclear etiology. Suspect secondary to chronic malnutrition with some dilution from the IVF during admission. -Stool FOB pending. -H/H 8.0/23.5 on 11/02/19 --> H/H 8.0/22.9 on 11/03/19 --> 7.5/22.0 on 11/04/19 --> 7.5/22.4 on 11/05/19. PLAN: Will treat underlying malnutrition with NG tube feeding, nutrition consulting. 5. MS, relapsing and remitting, currently relapsed, slow chronic decline after 4 years of minimal/no MS treatment. -Barium swallow showed tracheal aspiration. -Swallow study shows honey thick diet recommended, patient unable to orally consume adequate calories. NG-tube placed on 11/04/2019. [facility]. -Discussion with outpatient neurologist, Dr. Muir on afternoon of 11/04/19. He recommended that patient may gain function back after this relapse. Recommended transfer to MS center after UTI is treated for initiation of MS therapy with eventual transition to long-term rehab facility to see if she can get back to her baseline. PLAN: Working on inpatient transfer to tertiary center in [place] ([facility] er) for treatment of her MS relapse in setting of UTI, FTT, severe chronic protein calorie malnutrition, anemia, high social risk status, etc. Will get baseline MRI brain and spinal cord and start stress dose steroids now that acute dehydration and UTI have been treated. 6. Failure to thrive -Alienated from support network, only has one close friend involved in her life (DPOA). Has been estranged from her family for the last 2 years. Some family in the area (cousin in [place], 18 year-old daughter in [place] who lives with her dad), brother and aunt out of state. Nobody is available to live with her and provide close and ongoing 24/7 care that would be needed for her to return home. -Has been unable to afford treatment for her MS for the last 4 years. -Psychiatric consult, Dr. Wright on 11/04/2019. Did not feel that depression was a major component of her failure to thrive. -NG tube placed 11/04/19, nutrition consulting. PLAN: Please see #5. Continue NG tube per nutrition orders. 7. Severe chronic protein calorie malnutrition PLAN: Please see #6. 8. Acute metabolic encephalopathy, resolved with UTI treatment 9. Right ovarian hemorrhagic cyst, 4 cm, new. Possible cause for her ongoing chronic complaint of abdominal pain, especially if she had one burst recently. -Will consult with Gynecology as outpatient. -Repeat ultrasound in 6 weeks for surveillance. 10. History of alcohol abuse. -Patient claims she is no longer drinking. No withdrawal symptoms in the hospital after 6 days. PLAN: Will discontinue CIWA protocol at this point. 11. Marijuana abuse. -Reports continuous use of marijuana at home. -DPOA asked if they could give this to her in the hospital to help calm her nerves and help her sleep. PLAN: Told DPOA that she could not bring in outside THC to the hospital to administer to patient. PRN lorezapam already ordered. Code: Full DVT prophylaxis: Lovenox Disposition: Hopeful for inpatient transfer to MS Center today or tomorrow. IV steroids started in the meantime. Quality VTE Deep Vein Thrombosis/Pulmonary Embolism Present on Admission: No
[2019-11-05 06:20] LABS: Hematocrit 22.4 % (36-46); Hemoglobin 7.5 g/dL (12.0-16.0); Mean Corpuscular HGB Conc 33.6 % (30-36); Mean Corpuscular Hemoglobin 29.5 PG (26-34); Mean Corpuscular Volume 87.7 fL (80-100); Platelet Count 157 X10^3/uL (150-400); Red Blood Cell Count 2.55 X10^6/uL (4.0-5.2); Red Cell Distribution Width 16.7 % (11.6-14.8); White Blood Cell Count 5.1 X10^3/uL (4.5-11.0)
[2019-11-05 06:30] LABS: BUN Creatinine Ratio 13.3 (6-22); Blood Urea Nitrogen 8 mg/dL (7-17); Calcium 8.1 mg/dL (8.4-10.2); Carbon Dioxide 20 mmol/L (22-32); Chloride 109 mmol/L (98-107); Estimated Glomerular Filt Rate > 60.0 mL/min (>60); Glucose 118 mg/dL (70-100); HEMOLYSIS < 15 (0-50); Potassium 4.1 mmol/L (3.4-5.1); Sodium 134 mmol/L (137-145)
[2019-11-05 07:45] LABS: Anisocytosis 1+; Neutrophils Absolute Manual 4590 /uL (3000-5900); Total Cells Counted 100
[2019-11-05] MEDS: THIAMINE 100 MG TABLET PO (08:57)
[2019-11-05] MEDS: ENOXAPARIN 40 MG/0.4 ML SYRINGE SUBCUT (08:58)
[2019-11-05] MEDS: MULTIVITAMIN 1 TABLET 1 TAB PO (08:58)
[2019-11-05] MEDS: FOLIC ACID 1 MG TABLET PO (08:58)
[2019-11-05] MEDS: SODIUM CHLORIDE 0.9% FLUSH 10 ML IV ×4 (08:59→23:58)
--- NOTE | 2019-11-05 09:02 | SLP.IPNOTE ---
Stopped in to see pt following nasogastric tube placement and start of feeding. Pt is potentially transferring to higher care facility today. Pt currently showing no overt s/sx aspiration and is tolerating current diet. Will d/c pt from ST at this time. Will reconsult if pt's condition changes.
[2019-11-05] MEDS: OXYCODONE IR 5 MG TABLET PO ×2 (11:38→18:40)
--- NOTE | 2019-11-05 11:47 | PC.NURSE ---
Pt given prn Oxycodone 5mg crushed via tube feed. Flushed with administration and after for a total of 50mls water. No residual prior to administration of med.
--- NOTE | 2019-11-05 11:54 | PT.IPTN ---
Current Diagnoses Major depressive disorder, single episode, unspecified (11/02/19) Multiple sclerosis (11/02/19) Urinary tract infection, site not specified (11/02/19) Adult failure to thrive (11/02/19) Physical Therapy Treatment Note M2 PT-IP Current Condition Start: 10/30/19 14:09 Freq: NEEDED Status: Active Protocol: Document 10/30/19 11:55 AB (Rec: 10/30/19 14:24 AB [id number]) Physical Therapy Current Condition Current Condition Evaluation Date 10/30/19 Treatment Diagnosis MS; failure to thrive; generalized weakness Onset Date 10/29/19 Precautions Other Precautions falls M3 PT-IP Subjective Start: 10/30/19 14:09 Freq: NEEDED Status: Active Protocol: Document 11/05/19 11:37 KS (Rec: 11/05/19 13:26 KS [email or web address]) Subjective Physical Therapy Visit Type Type Treatment Note Visit Start Time 11:37 Visit Stop Time 11:54 Total Visit Minutes 17 Number of NONPROFIT DIRECTOR Visits 1 Physical Therapy Visit Comments Patient Comments agreeable to do PT Therapy Pain Assessment Pain When Pain Assessed At Rest Pain Present Pain Present Pain Reported Location Bilateral Leg Scale Used not quantified Description Aching Pain Behaviors Guarding,Holding Area Pain Management Techniques Re-positioning,Timing of Activity with Medications M4 PT-IP Mobility and Gait Start: 10/30/19 14:09 Freq: NEEDED Status: Active Protocol: Document 11/05/19 11:37 KS (Rec: 11/05/19 13:26 KS [id number]) PT-Bed Mobility Assessment Rolling Type of Rolling Bilateral Level of Assist Moderate Assistance,1 Person Assistance Scooting Scooting Up and Down in Bed Maximum Assistance PT-Transfer Assessment Transfer Ability Level of Assist Maximum Assistance,2 Person Assistance,Use of Upper Extremities Comments Mobility Comments Pt in bed upon arrival from therapy w/ MMI TEACHER in room prepping for bed bath. Pt able to complete 1x5 bilateral ankle pumps, heel slides, quad sets, and glute sets. Pt has more difficulty L>R w/ LE strengthening exercises. Mod A for bilateral rolling for bed bath and brief change, Max A x2 for scooting up in bed. Encouraged/offered to assist pt to transfer to chair, however she refused x2. Pt left in bed w/ MMI TEACHER in room. M5 PT-IP Objective Assessments Start: 10/30/19 14:09 Freq: NEEDED Status: Active Protocol: Document 10/30/19 11:55 AB (Rec: 10/30/19 14:24 AB [id number]) Orientation Orientation/Cognition Level of Alertness Alert Orientation Name Safety Awareness Decreased Safety Awareness Gross Range of Motion Lower Extremity ROM Assessment Within Functional Limits Strength Lower Extremity Strength Assessment Bilaterally Impaired Comments Strength Comments LLE: hip: 2+/5 knee: 3+/5 ankle: 1/10 RLE: hip: 3+/5 knee: 3+/5 ankle: 1/10 Coordination Assessment Gross Coordination Gross Coordination Impaired Sensation Assessment Sensation Light Touch Impaired Proprioception (Position) Impaired Sensation Description Numbness,Tingling Muscle Tone Muscle Tone WNL No M6 PT-IP Treatment Start: 10/30/19 14:09 Freq: NEEDED Status: Active Protocol: Document 11/05/19 11:37 KS (Rec: 11/05/19 13:26 KS [email or web address]) Physical Therapy Treatment Exercises Exercises Ankle Pumps,Gluteal Sets,Quad Sets,Heel Slides Education Education Provided Safety M7 PT-IP Assessment and Plan Start: 10/30/19 14:09 Freq: NEEDED Status: Active Protocol: Document 11/05/19 11:37 KS (Rec: 11/05/19 13:26 KS [id number]) PT Summary Assessment and Plan Potential Rehabilitation Potential Fair Summary Impairments Pain,ROM,Strength,Balance, Coordination,Sensation,Tone, Cognition,Bed Mobility, Transfers,Gait,Activity Tolerance Progress Towards Goals Slow Progress due to Medical Issues,Slow Progress due to Activity Tolerance Assessment Summary Pt refused transfer today, however was able to complete 1x5 bilateral ankle pumps, quad sets, heel slides, and glute sets. Mod A for bilateral rolling for brief change, Max A x2 for scooting up in bed. Pt will require SNF to improve functional mobility. Goals Bed Mobility Goal Minimal Assistance Transfer Goal Minimal Assistance,Front Wheeled Walker Gait Goal Minimal Assistance,Front Wheel Walker Gait Distance 25 Days to Meet Goals 10 Frequency of Treatment Frequency Of Treatment Once a Day Treatment Plan Physical Therapy Treatment Plan Bed Mobility Training,Transfer Training,Gait Training, Therapeutic Exercise,Balance Retraining,Discharge Planning, Neuromuscular Re-ed, Coordination Retraining,Manual Therapy Recommendations To Nursing Amount of Assist Needed Mechanical Lift Discharge Recommendations PT Discharge Recommendations SNF Rehab Transportation Needs at Discharge Stretcher/Ambulance
--- NOTE | 2019-11-05 12:34 | DI.MRI.S_ITS ---
PROCEDURE: MR HEAD/BRAIN WO/W CON INDICATIONS: MS relapse TECHNIQUE: Noncontrast axial T1 spin echo, axial T2 fast spin echo, sagittal and axial FLAIR, coronal T2 fast spin echo, axial gradient echo, axial diffusion and ADC through the brain. After the administration of contrast, axial and coronal 3D VIBE or T1 spin echo with fat saturation through the brain. COMPARISON: [facility], MR, MS BRAIN W & W/O CONT, 10/17/2011, 17:30. FINDINGS: Image quality: Excellent. CSF Spaces: Basal cisterns are patent. No extra-axial fluid collections. Ventricles are normal in size and shape. Brain: No midline shift. No intracranial bleeds or masses. No abnormal intracranial enhancement. There is a moderate degree of patchy high FLAIR signal intensity within the periventricular, pericallosal, and subcortical white matter, as well as the left aspect of the midbrain, which has increased moderately in extent compared to the prior examination. The left mid brain lesion is new compared to the prior examination. Multiple well-circumscribed low T2 intensity foci are seen within the bilateral periventricular white matter and within the right anterior temporal lobe and left mid brain, consistent with burned out/chronic multiple sclerosis foci. The brainstem appears normal. Diffusion-weighted images demonstrate no acute ischemic insults. No chronic ischemic insults. Normal intravascular flow voids are present. Skull and face: Calvarial marrow is normal in signal. Orbits appear normal. Sinuses: Sinuses and mastoids appear clear. IMPRESSION: 1. Moderate increase in white matter disease, compatible with multiple sclerosis. 2. No acute process. No recent infarct. Dictated by: Kathryn Cesar M.D. on 11/05/2019 at 14:37 Approved by: Kathryn Cesar M.D. on 11/05/2019 at 14:47
--- NOTE | 2019-11-05 12:35 | DI.MRI.S_ITS ---
PROCEDURE: MR CERVICAL SPINE WO/W CON INDICATIONS: MS relapse TECHNIQUE: Noncontrast sagittal T1 spin echo and T2 fast spin echo, sagittal STIR, sagittal PD fast spin echo, foraminal oblique sagittal T2 fast spin echo, axial gradient echo or T2 fast spin echo through the cervical spine. After the administration of contrast, sagittal and axial T1 spin echo with fat saturation through the cervical spine. COMPARISON: [facility], MR, CERVICAL SPINE W&W/O CONTRAST, 10/17/2011, 17:30. FINDINGS: Image quality: Partially degraded by motion artifact. Alignment and curvature: There is loss of normal cervical lordosis. Marrow: Marrow demonstrates normal overall signal. Spinal cord: Visualized spinal cord is normal in size. There is moderate patchy STIR signal elevation within the posterior medulla, the upper, mid, and lower cervical spine, as well as the upper thoracic spine, as before, indicating a severe degree of white matter disease, which is not significantly changed. No suspicious intramedullary enhancement. No cerebellar tonsillar herniation. Paraspinous soft tissues: No paravertebral masses or suspicious enhancement. C2-C3: Disc desiccation. No significant canal, or foraminal stenosis. No change. C3-C4: Disc desiccation. No significant canal, or foraminal stenosis. No change. C4-C5: Mild disc desiccation and diffuse disc bulge. Mild facet and uncovertebral hypertrophy. Mild canal stenosis. Mild bilateral foraminal stenosis. No change. C5-C6: Mild disc desiccation and diffuse disc bulge. Mild facet and uncovertebral hypertrophy. Mild canal stenosis. Moderate bilateral foraminal stenosis. No change. C6-C7: Normal appearance. C7-T1: Normal appearance. IMPRESSION: 1. Severe degree of white matter disease within the cervical cord and medulla, compatible with multiple sclerosis, which is not significantly changed. 2. Multilevel degenerative disc and facet disease, as well as uncovertebral hypertrophy, causing mild multilevel canal stenosis. Multilevel foraminal stenosis, worst at C5-C6, where there is moderate foraminal stenosis. Dictated by: Kathryn Cesar M.D. on 11/05/2019 at 14:47 Approved by: Kathryn Cesar M.D. on 11/05/2019 at 14:52
--- NOTE | 2019-11-05 12:40 | DIET.PN ---
Dietary Progress Note RD f/u re TF tolerance. Glucerna 1.5 infusing at 25mL/h. Please consider drawing refeeding labs (mg, phos, K+) as pt has had low POs for >1w c low BMI 17.3 and replete as needed. If refeeding labs stable, increase feed to goal of 35mL/h c 125mL free water flushes q4h. Provides 1260kcal (100%), 69g PRO (120%) and 1538mL free water HT: 157.4cm WT: 43kg (+2.3kg overnight) UBW: 59kg BMI: 17.3 (severe) Nutrition Diagnosis: ONGOING Severe chronic PCM r/t difficulty caring for self aeb energy intake <75% EER > 1mo, >20% wt loss in 1 yr, BMI 16.7, pt eating finger foods only r/t dysarthria. Diet Order: dysphagia EER:1300 tiffany @ 30cal/kg ; 54g pro (1.3) Monitoring/Evaluations: following daily, RD can be reached @ [phone]
[2019-11-05] MEDS: methylPREDNISolone 1,000 MG in SODIUM CHLORIDE 0.9% 250 ML 258 ML IV (13:12)
--- NOTE | 2019-11-05 14:24 | CM.DPNOTE ---
Addendum entered by MAMI Spicer 11/05/19 15:36: [facility]- Do not take [employer] MCR Original Note: Placement Efforts: Attempted the following facilities today in [facility]- [facility]- faxed [facility]- faxed [facility]-faxed [facility]- [facility] [place] [facility]- faxed No response yet on these. Placed call to Felisa at [facility], reviewed referral and requested she consider. Faxed clinical referral packet for review to F# [phone], awaiting CB No new information according to RN Coordinator Heidi re: transfer to higher level of care JW
--- NOTE | 2019-11-05 15:26 | OT.IPNOTE ---
Pt just getting back from cervical and brain MRI and ttoo tired and in pain and not wanting to do OT at this time.
--- NOTE | 2019-11-05 15:33 | PC.NURSE ---
Day shift note: Spoke with Lisa in dietary, regarding patient current rate of 25 ml/hr of NGT feed. No changes at this time.
[2019-11-05] MEDS: MORPHINE 2 MG/ML INJ IV ×2 (16:18→21:30)
--- NOTE | 2019-11-05 17:06 | PC.NURSE ---
Addendum entered by Daina Felipe R.N. 11/05/19 22:19: Pt continues to c/o back/buttock pain. Careful inspection of skin to buttocks reveals pink, intact skin without open areas. Waffle cushion in place. Pt is on menses with pad changes as needed and careful pericare. Is able to assist with turning in bed in a limited fashion. Tube feed continues without difficulty via NG tube. Head of bed elevated. Oral meds in applesauce with intact swallow. Refuses ibuprofen and tylenol and requests stronger pain meds. Morphine and vistaril administered as well as repositioning in bed for comfort. Addendum entered by Daina Felipe R.N. 11/05/19 20:07: Pt continues to c/o buttock pain following MRI 10/17. Discussed availability and effectiveness of ibuprofen and tylenol and pt refuses both. Pt states morphine and oxycodone manage pain ideally. Pt was given oxycodone in bite applesauce. Able to swallow with head of bed elevated. Dr. Hinds checks in by telephone and informs this teletypewriter operator pt may likely be transferred to MS center @ tomorrow. Instructed to inform pt of this and this was done. Repositioning per SUPPLY ASSISTANT and pt request. Original Note: Pt in bed awake, alert, conversant and able to make needs and wants known to staff although speech is slow and deliberate. Pt c/o pain to buttocks/legs 8.5. Discussed medication options with pt and pt requests morphine as states this is most effective. This was given. Tube feeding in progress @ 25 cc/hr to tube in left nare. Pt denies nausea. Bowel tones quiet at this assessment. Waffle cushion placed under pt's buttocks and pt repositioned in bed for comfort. Head of bed elevated. BL calf scd's in place.
[2019-11-05] MEDS: hydrOXYzine pamoate 25 MG CAPSULE PO (21:29)
[2019-11-05] MEDS: SERTRALINE 50 MG TABLET 100 MG PO (21:30)
--- NOTE | 2019-11-05 22:31 | PC.NURSE ---
2230 -While this HEALTHCARE BUSINESS ANALYST was in the room, pt took off the ring from her middle finger and gave it to her Aunt who was in the room for safe keeping.
[2019-11-05] MEDS: MORPHINE 2 MG/ML INJ 1 MG IV (23:57)
--- NOTE | 2019-11-06 00:27 | PC.NURSE ---
Requested Morphine for pain, declined Ibuprofen states it's not working. Pt. sleeping now after 1 mg. of Morphine IVP. Will cont. POC & monitor.
[2019-11-06 04:00] VITALS: BP 115/68; PULSE 78; RESP 18; TEMP 36.8; O2SAT 97
[2019-11-06] MEDS: OXYCODONE IR 5 MG TABLET PO (05:15)
[2019-11-06 06:38] LABS: Hematocrit 26.3 % (36-46); Mean Corpuscular HGB Conc 34.2 % (30-36); Mean Corpuscular Hemoglobin 29.7 PG (26-34); Mean Corpuscular Volume 86.8 fL (80-100); Platelet Count 204 X10^3/uL (150-400); Red Blood Cell Count 3.03 X10^6/uL (4.0-5.2); Red Cell Distribution Width 16.8 % (11.6-14.8); White Blood Cell Count 8.7 X10^3/uL (4.5-11.0)
[2019-11-06 06:50] LABS: BUN Creatinine Ratio 26.9 (6-22); Blood Urea Nitrogen 14 mg/dL (7-17); Calcium 8.5 mg/dL (8.4-10.2); Carbon Dioxide 22 mmol/L (22-32); Chloride 105 mmol/L (98-107); Estimated Glomerular Filt Rate > 60.0 mL/min (>60); Glucose 142 mg/dL (70-100); HEMOLYSIS < 15 (0-50); Potassium 3.9 mmol/L (3.4-5.1); Sodium 135 mmol/L (137-145)
[2019-11-06 07:16] LABS: Neutrophils Absolute Manual 8439 /uL (3000-5900); RBC Morphology Normal Morphology; Total Cells Counted 100
[2019-11-06 08:00] VITALS: BP 111/63; PULSE 75; RESP 15; TEMP 36.6; O2SAT 95
[2019-11-06] MEDS: ENOXAPARIN 40 MG/0.4 ML SYRINGE SUBCUT (09:31)
[2019-11-06] MEDS: MULTIVITAMIN 1 TABLET 1 TAB PO (09:31)
[2019-11-06] MEDS: IBUPROFEN 400 MG TABLET PO ×2 (09:31→20:28)
[2019-11-06] MEDS: FOLIC ACID 1 MG TABLET PO (09:32)
--- NOTE | 2019-11-06 11:20 | PT-IP ANOTE ---
Attempted to see pt at 11:20, but pt was unavailable d/t busy w/ nursing. Will try this PM.
--- NOTE | 2019-11-06 11:20 | PM.PN.1 ---
Subjective Subjective Date Patient Seen: 11/06/19 Time Patient Seen: 11:20 Interval history: Patient overall feeling better today. Was able to eat breakfast. Although it tired her off quite a bit. She is having no new changes. No headaches. No chest pain shortness of breath abdominal pain or other change. Feels like her strength is slightly improved. Exam Vital Signs (past 8 hours): - 11/06/19 04:00 11/06/19 08:00 Temperature 98.2 F 97.9 F Pulse Rate 78 75 Respiratory Rate 18 15 Blood Pressure 115/68 111/63 Pulse Oximetry 97 95 Oxygen Delivery Method Room Air Oxygen Flow Rate 0 Narrative Exam Narrative: Alert smiling female lying in bed in no acute distress. Skin is pale. But good hydration. Mucous membranes moist. Eyes show no abnormality. Neck supple without adenopathy JVD or bruits. Lungs are clear. Heart regular rate and rhythm without murmurs clicks rubs or gallops abdomen is soft positive bowel sounds nontender. Extremities are unremarkable. Neurologic exam shows her speech is somewhat slurred but she is capable of being understood. Her upper extremities seem to have 4+ strength bilaterally. Lower extremities seem to be 3+ to for although probably 3+ on the left side. Barely can get off the bed. Sensation appears to be intact. No other change. Objective Labs Result Diagrams: 11/06/19 06:25 11/06/19 06:25 Labs: Laboratory Results - last 24 hr 11/06/19 11/06/19 06:25 06:25 WBC 8.7 D RBC 3.03 L Hgb 9.0 L Hct 26.3 L MCV 86.8 MCH 29.7 MCHC 34.2 RDW 16.8 H Plt Count 204 Total Counted 100 Seg Neutrophils % 76.0 H Band Neutrophils % 21.0 H Lymphocytes % (Manual) 3.0 L Neutrophils # (Manual) 8439 H RBC Morphology Normal morphology Sodium 135 L Potassium 3.9 Chloride 105 Carbon Dioxide 22 BUN 14 Creatinine 0.52 Estimated GFR > 60.0 BUN/Creatinine Ratio 26.9 H Glucose 142 H Calcium 8.5 Assessment & Plan Assessment & Plan narrative: Multiple sclerosis relapse and remitting. Currently on steroids. Seems to be improving. Discussed last night with [facility] multiple sclerosis [place]. They feel as if they were able to admit her possibly on Friday. Whether not we continue on steroids is something I will discuss with him when I hopefully talk with him today. Will put in phone call. No other changes. Seems to be slowly improving. Still very weak. Clearly needs to have a definitive plan with the neurologist on treatment course and expectations. She understands discussed with public health assistant and power of purchasing buyer. Anemia. Probably secondary to nutritional status but will check iron and B12 and folate. Will see where those are. Can replace iron IV if needed. Follow from there. Seems to be at least stable. Nutrition. Patient currently on feeding tube 35 an hour but was able to eat today. Which is a big plus. Will see how things go if she continues to do well eating may be able to discontinue tube feeding will see what dietitian and devulcanizer loader feel like period certainly tolerating oral feeding better than what originally was shown. UTI. Appears to be resolved but now with indwelling Ocampo. Hopefully we can discontinue that as soon as possible with her MS treatment will hold for now. Failure to thrive. All this again be dependent on her treatment. She clearly is not going to be able to go home. We now have nutrition improved on and it will depend on MS treatment. Will see how things go. Follow from there. Dehydration. Resolved but still getting free fluid in her NG tube. Will follow. Severe chronic protein malnutrition. Please see nutrition will follow. Acute metabolic encephalopathy. Combination of MS and UTI resolved at this point slowly improving. Right ovarian hemorrhagic cyst 4 cm seems to be stable no pain will follow. History of alcohol abuse. Stable at this time. Is not been an issue. I think since she was isolated at home she was unable to obtain and at this point I think were stable. No risk at this time. History of marijuana abuse does not seem to be an issue at this time. Code status full DVT status on Lovenox. Disposition hopefully inpatient transfer on Friday if we can get a hold of the [facility]. Quality VTE Deep Vein Thrombosis/Pulmonary Embolism Present on Admission: No
[2019-11-06 11:31] LABS: HEMOLYSIS < 15 (0-50); Iron 23 ug/dL (37-170)
[2019-11-06 11:32] LABS: Magnesium 1.7 mg/dL (1.6-2.3); Phosphorous 4.3 mg/dL (2.5-4.5)
[2019-11-06 11:41] LABS: Percent Iron Saturation 8 % (15-50); Total Iron Binding Capacity 284 ug/dL (265-497); Transferrin 193 mg/dL (206-381)
[2019-11-06 12:06] LABS: Ferritin 33 ng/mL (6-137)
[2019-11-06] MEDS: IRON SUCROSE 200 MG in SODIUM CHLORIDE 0.9% 100 ML 220 ML IV (12:26)
[2019-11-06] MEDS: SODIUM CHLORIDE 0.9% FLUSH 10 ML IV ×2 (12:32→20:28)
[2019-11-06 12:37] LABS: Folate 11.6 ng/mL (2.76-20.0); Vitamin B12 977 pg/mL (239-931)
[2019-11-06 13:00] VITALS: BP 98/62; PULSE 83; TEMP 36.8
--- NOTE | 2019-11-06 13:28 | PT-IP ANOTE ---
Pt refused treatment x2 this PM, reporting high level of fatigue and wanting to take a nap. Reviewed LE exercises including ankle pumps and heel slides, which pt stated she will complete in bed after nap.
[2019-11-06] MEDS: methylPREDNISolone 1,000 MG in SODIUM CHLORIDE 0.9% 250 ML 258 ML IV (14:04)
--- NOTE | 2019-11-06 14:50 | OT.IP.TRT ---
Current Diagnoses Major depressive disorder, single episode, unspecified (11/02/19) Multiple sclerosis (11/02/19) Urinary tract infection, site not specified (11/02/19) Adult failure to thrive (11/02/19) Occupational Therapy Treatment Note M2 OT-IP Current Condition Start: 10/30/19 12:34 Freq: Status: Active Protocol: Document 10/30/19 12:34 CGR (Rec: 10/30/19 13:11 CGR [id number]) Occupational Therapy Current Condition Current Condition Evaluation Date 10/30/19 Treatment Diagnosis Generalized weakness Diagnosis Onset Date 10/29/19 M3 OT- IP Subjective and Pain Start: 10/30/19 12:34 Freq: Status: Active Protocol: Document 11/06/19 14:49 CGR (Rec: 11/06/19 14:50 CGR [id number]) OT- Subjective Occupational Therapy Visit Type Type Administrative Note Notes Attempted to see x2 today. Pt eating lunch this am and sleeping in PM. Per family and nursing, pt has been very fatigued and needs the rest at this time. No OT services rendered.
--- NOTE | 2019-11-06 15:01 | CM.DPNOTE ---
DCP Cont According to Dr Tan, efforts by Dr Hinds and by him today to secure a bed at [facility]. According to Heidi KRUSE Coordinator, patient might have been accepted for this w/e, if not, Friday. Meanwhile, this PHARMACEUTICAL ASSISTANT attempting to secure a back up plan for dispo [facility] Attempting SNFs, [facility], ARACELI Jensen wonders if Acute Inpt Rehab might serve patient well? No secured bed at this time. Met w/patient and her aunt Mira at bedside. ANA MARÍA Murrell w/her family/children this w/e, Mira filling in at bedside as patient support and advocate. This PHARMACEUTICAL ASSISTANT begins to review DC planning efforts, begin to discuss planning for options A,B, and C in dispo and patient/family seem to understand this process. In discussing SNF as an option patient and family adamantly refusing, patient/family begin to address multiple concerns of theirs to this PHARMACEUTICAL ASSISTANT dating back to day of presentation to the ED, one of the biggest complaints being that [facility] is not equipped to handle a 39 yo w/MS, why wasn't her Neurologist contacted and consulted immediately? This PHARMACEUTICAL ASSISTANT joined by URIAH Matthews, attempted to provide listening support as patient and aunt Mira expressed concerns noted above. in addition, patient/family state they feel they have not been listened to and have not been updated properly. This PHARMACEUTICAL ASSISTANT apologetic as patient and family in clear distress. Patient/family hopeful patient can just get outta here and get to [facility] which seems like what I need Patient and family commend staff in the treatment of patient. This PHARMACEUTICAL ASSISTANT feels it's appropriate to hold DC planning efforts at this time. Hopeful that patient will get a bed secured at higher level of care. If transfer does not happen, patient and family would benefit from a full care conference where in efforts up to today are reviewed, both medical and DC planning, and plan of care movnig forward are reviewed w/request for patient and family input. M submitted w/patient complaint. Ledy Sherwood and Alexia Ruffin notified. MAMI Spicer
--- NOTE | 2019-11-06 15:36 | PC.NURSE ---
SHIFT SUMMARY- CLARIFIED TUBE FEED ORDERS W/ DR ESQUIVEL DURING AM ROUNDS. ADJUSTED FEEDS/FLUSHES PER ORDERS. NEW TUBING HUNG WITH NEW BOTTLE OF GLUCERNA 1.5. PATIENT TOLERATING WELL. ATE APPROX 80% BREAKFAST AND LUNCH, TOLERATING THICKENED LIQUIDS. USING RUBBERIZED/THICKENED UTENSILS AND ABLE TO FEEDS SELF WITH EFFORT. DR ESQUIVEL ALSO NOTIFIED OF PATIENT HAVING DARK RED OLD APPEARING BLOODY DISCHARGE VAGINALLY, PATIENT STATES HAS BEEN ON HER PERIOD. PATIENT'S AUNT COSME PRESENT AND SUPPORTIVE TO PATIENT. COSME REPORTS MULTIPLE CONCERNS ABOUT DISORGANIZED PRESENTATION OF POC, THEIR CONCERN THAT PATIENT'S NEUROLOGY CONSULT WAS NOT PROMPT AND THAT A PROGNOSIS INCLUDING CONSULT TO PALLIATIVE/HOSPICE CARE WAS ENTERED PRIOR TO THE NEUROLOGY CONSULT WHICH HAS PLACED UNDUE STRESS AND EMOTIONAL STRAIN ON THE PATIENT AND THE FAMILY. THEY REQUESTED FORMAL COMPLAINT ENTERED AND WERE ALSO PROVIDED THE PHONE NUMBER FOR [facility] FAT[facility] IN [facility]. CHARGE NURSE ALSO NOTIFIED. THESE CONCERNS WERE ADDRESSED WITH THIS FINISH ROLLS OPERATOR, COSME, PATIENT, MAKRELL RADFORD, AND FR[place], PRIMARY RN IN ROOM.
--- NOTE | 2019-11-06 17:17 | PC.NURSE ---
Addendum entered by Daina Felipe R.N. 11/06/19 22:50: Pt denies pain to back/buttocks or any pain in any location. Accepts ibuprofen as per emar. Meds whole in pudding with intact swallow. Repositioning by MACHINE CAGE MAKER. Scant vag bleeding per peripad. Discussion with pt re bowel function. Pt states has been cleaned up from several bowel movements since hospitalization. Addendum entered by Daina Felipe R.N. 11/06/19 17:28: Pt resting quietly in bed with eyes closed and head of bed elevated. No signs of distress or discomfort. Tube feed to NG left nare continues @ 35 cc/hr. Addendum entered by Daina Felipe R.N. 11/06/19 17:19: [facility] Awaiting bed availability. Will hold on shi virus testing when more definitive plan is in place for ETA of transfer. MARKELL Goode made aware via telephone conversation. Original Note: Pt's aunt leaves for a bit and states pt is sleeping. Will allow for pt's uninterrupted sleep.
[2019-11-06 18:25] VITALS: BP 117/66; PULSE 85; RESP 16; TEMP 36.7; O2SAT 94
[2019-11-06] MEDS: SERTRALINE 50 MG TABLET 100 MG PO (20:27)
[2019-11-06 21:10] VITALS: BP 115/73; PULSE 80; RESP 16; TEMP 37.4; O2SAT 94
[2019-11-07] VITALS (7 sets, daily range): BP systolic 97–119; BP diastolic 48–71; PULSE 55–73; RESP 16–18; TEMP 36.5–36.9; O2SAT 94–98
[2019-11-07] MEDS: IBUPROFEN 400 MG TABLET PO ×4 (04:54→20:58)
[2019-11-07] MEDS: OXYCODONE IR 5 MG TABLET PO ×3 (05:00→20:45)
[2019-11-07] MEDS: MORPHINE 2 MG/ML INJ IV ×2 (08:15→16:28)
[2019-11-07] MEDS: ACETAMINOPHEN 325 MG TABLET 650 MG PO (08:16)
[2019-11-07] MEDS: FOLIC ACID 1 MG TABLET PO (08:17)
[2019-11-07] MEDS: ENOXAPARIN 40 MG/0.4 ML SYRINGE SUBCUT (08:17)
[2019-11-07] MEDS: SODIUM CHLORIDE 0.9% FLUSH 10 ML IV ×2 (08:17→13:54)
[2019-11-07] MEDS: MULTIVITAMIN 1 TABLET 1 TAB PO (08:17)
[2019-11-07 08:19] LABS: Hematocrit 25.9 % (36-46); Hemoglobin 8.7 g/dL (12.0-16.0); Mean Corpuscular HGB Conc 33.4 % (30-36); Mean Corpuscular Volume 86.8 fL (80-100); Platelet Count 250 X10^3/uL (150-400); Red Blood Cell Count 2.99 X10^6/uL (4.0-5.2); Red Cell Distribution Width 17.3 % (11.6-14.8); White Blood Cell Count 20.3 X10^3/uL (4.5-11.0)
[2019-11-07 08:30] LABS: BUN Creatinine Ratio 55.4 (6-22); Blood Urea Nitrogen 36 mg/dL (7-17); Calcium 8.7 mg/dL (8.4-10.2); Carbon Dioxide 25 mmol/L (22-32); Chloride 105 mmol/L (98-107); Estimated Glomerular Filt Rate > 60.0 mL/min (>60); Glucose 134 mg/dL (70-100); HEMOLYSIS < 15 (0-50); Potassium 4.1 mmol/L (3.4-5.1); Sodium 138 mmol/L (137-145)
[2019-11-07 08:45] LABS: Neutrophils Absolute Manual 17864 /uL (3000-5900); Total Cells Counted 100
[2019-11-07 08:46] LABS: RBC Morphology Normal Morphology
--- NOTE | 2019-11-07 11:02 | DI.RAD.S_ITS ---
PROCEDURE: XR CHEST 1V INDICATIONS: increased wbc TECHNIQUE: One view of the chest was acquired. COMPARISON: [facility], CR, XR CHEST 2V, 11/02/2019, 12:21. [facility], CR, XR CHEST 1V, 11/04/2019, 15:32. FINDINGS: Surgical changes and devices: The tip of the weighted feeding tube is seen overlying the mid stomach. Incidental note is made of a metallic body ornamentation artifact. Lungs and pleura: There is minimal blunting of the right costophrenic angle. Mediastinum: Mediastinal contours appear normal. Heart size is normal. Bones and chest wall: No suspicious bony lesions. Overlying soft tissues appear unremarkable. Mild residual contrast can be seen within the colon. IMPRESSION: The tip of the weighted feeding tube is seen overlying the mid stomach. Blunting of the right costophrenic angle is seen, which may be related to a small pleural effusion or atelectasis. Dictated by: Doni Salazar M.D. on 11/07/2019 at 10:52 Approved by: Doni Salazar M.D. on 11/07/2019 at 10:54
--- NOTE | 2019-11-07 12:35 | DI.MRI.S_ITS ---
PROCEDURE: MR LUMBAR SPINE WO/W CON INDICATIONS: MS relapse TECHNIQUE: Noncontrast sagittal T1 spin echo and T2 fast spin echo, sagittal STIR, axial T1 and T2 fast spin echo through the lumbar spine. In cases with scoliosis, additional coronal T2 fast spin echo may be performed. After the administration of contrast, sagittal and axial T1 spin echo with fat saturation through the lumbar spine. COMPARISON: [facility], CR, XR CHEST 1V, 11/07/2019, 11:23. [facility], MR, MR THORACIC SPINE WO/W CON, 11/07/2019, 10:34. FINDINGS: Image quality: This examination is limited by involuntary motion artifact. Alignment and curvature: There is normal bony alignment. Marrow: Marrow is of normal overall signal. No acute vertebral body compression fractures. No suspicious marrow enhancement. Spinal cord: Conus medullaris terminates at the T12-L1 level. Visualized spinal cord demonstrates a few foci of increased T2 weighted hyperintensity, including at the superior T11 level and the T11-T12 levels. These foci do not enhance. Paraspinous soft tissues: No paravertebral masses or abnormal enhancement. T12-L1: Normal appearance. L1-L2: Normal appearance. L2-L3: Normal appearance. L3-L4: Normal appearance. L4-L5: Mild loss of disc height is seen. Loss of disc signal is seen. There is a focal annular fissure seen posteriorly. Moderate disc bulge is seen, with a mild central disc protrusion. Moderate facet joint hypertrophy is seen. There is mild to moderate right-sided and minimal left-sided neural foraminal narrowing seen. Mild central canal narrowing is seen. L5-S1: Normal appearance. IMPRESSION: Mild foci of increased abnormal T2 weighted signal can be seen within the distal spinal cord, which is consistent with multiple sclerosis. Focal L4-5 degenerative change can be seen. Dictated by: Doni Salazar M.D. on 11/07/2019 at 11:22 Approved by: Doni Salazar M.D. on 11/07/2019 at 11:25
--- NOTE | 2019-11-07 12:36 | DI.MRI.S_ITS ---
PROCEDURE: MR THORACIC SPINE WO/W CON INDICATIONS: MS relapse TECHNIQUE: Noncontrast sagittal T1 spin echo and T2 fast spin echo, sagittal STIR, axial T1 and T2 fast spin echo through the thoracic spine. After the administration of contrast, axial and sagittal T1 spin echo with fat saturation through the thoracic spine. COMPARISON: [facility], MR, MR LUMBAR SPINE WO/W CON, 11/07/2019, 9:53. [facility], CR, XR CHEST 1V, 11/07/2019, 11:23. FINDINGS: Image quality: This examination is limited by involuntary motion artifact. On postcontrast imaging, areas of signal dropout can be seen on series 11. Alignment and curvature: Accentuated thoracic kyphosis is seen. Marrow: Marrow is of normal overall signal. No acute vertebral body compression fractures. Spinal cord: Visualized spinal cord is of normal size. There are abnormal foci of increased T2 weighted hyperintensity seen within the spinal cord, most notably at the C5-C6, T6-T7, T8, T9-T10, and T11-T12 levels. These foci do not enhance. Paraspinous soft tissues: No paravertebral masses or abnormal enhancement. There is a small right-sided pleural effusion. Miscellaneous: Central canal and foramina appear widely patent at all scanned levels. IMPRESSION: Several foci of abnormal T2 weighted hyperintensity can be seen within the visualized lower cervical cord and the thoracic cord, which are consistent with the given clinical history multiple sclerosis. These foci do not enhance. A small right-sided pleural effusion can be seen. Dictated by: Doni Salazar M.D. on 11/07/2019 at 10:54 Approved by: Doni Salazar M.D. on 11/07/2019 at 10:58
--- NOTE | 2019-11-07 12:42 | PT.IPTN ---
Current Diagnoses Major depressive disorder, single episode, unspecified (11/02/19) Multiple sclerosis (11/02/19) Urinary tract infection, site not specified (11/02/19) Adult failure to thrive (11/02/19) Physical Therapy Treatment Note M2 PT-IP Current Condition Start: 10/30/19 14:09 Freq: NEEDED Status: Active Protocol: Document 10/30/19 11:55 AB (Rec: 10/30/19 14:24 AB [id number]) Physical Therapy Current Condition Current Condition Evaluation Date 10/30/19 Treatment Diagnosis MS; failure to thrive; generalized weakness Onset Date 10/29/19 Precautions Other Precautions falls M3 PT-IP Subjective Start: 10/30/19 14:09 Freq: NEEDED Status: Active Protocol: Document 11/07/19 12:33 AW (Rec: 11/07/19 12:42 AW [id number]) Subjective Physical Therapy Visit Type Type Treatment Note Visit Start Time 11:30 Visit Stop Time 11:42 Total Visit Minutes 12 Number of COLLEGE COACH Visits 0 Physical Therapy Visit Comments Patient Comments Pt is just returning from MRI, needing assist to transfer from w/c Therapy Pain Assessment Pain When Pain Assessed At Rest Pain Present Pain Present Pain Reported M4 PT-IP Mobility and Gait Start: 10/30/19 14:09 Freq: NEEDED Status: Active Protocol: Document 11/07/19 12:33 AW (Rec: 11/07/19 12:42 AW [id number]) PT-Bed Mobility Assessment Sit to Supine Sit to Supine Maximum Assistance,2 Person Assistance PT-Transfer Assessment Sit to and From Stand Sit to and from Stand Maximum Assistance,2 Person Assistance Equipment Transfer Assistive Device Gait Belt,Front Wheeled Walker Orthotic/Prosthetic Devices or Brace: No Transfers Transfer Destination Bed Transfer Technique Stand Pivot Transfer Ability Level of Assist Total Assistance,2 Person Assistance Comments Mobility Comments Pt was sitting up in w/c with 2 RN's assisting as PT arrived . Pt was able to lean forward in order to don gait belt and to scoot forward minimally in preparation for standing. She was dependent to position her feet (left requiring greater assist) and required max A x 2 with blocking of BLE to stand . Pt was unable to advance her legs, requiring 3rd person to assist by moving BLE into position for stand pivot transfer to the bed. Pt was assisted to sit EOB max A x 2 to control descent. Once on EOB, she was able to provide assist with scooting back further on the bed. Sit to supine was dependent. Pt was positioned on the bed with waffle cushion under her pelvis, call light and all needs in reach. PT-Balance Assessment Sitting Balance and Reactions Static Sitting Balance Ability Poor Dynamic Sitting Balance Ability Poor Standing Balance and Reactions Static Standing Balance Ability Poor M5 PT-IP Objective Assessments Start: 10/30/19 14:09 Freq: NEEDED Status: Active Protocol: Document 10/30/19 11:55 AB (Rec: 10/30/19 14:24 AB [id number]) Orientation Orientation/Cognition Level of Alertness Alert Orientation Name Safety Awareness Decreased Safety Awareness Gross Range of Motion Lower Extremity ROM Assessment Within Functional Limits Strength Lower Extremity Strength Assessment Bilaterally Impaired Comments Strength Comments LLE: hip: 2+/5 knee: 3+/5 ankle: 1/10 RLE: hip: 3+/5 knee: 3+/5 ankle: 1/10 Coordination Assessment Gross Coordination Gross Coordination Impaired Sensation Assessment Sensation Light Touch Impaired Proprioception (Position) Impaired Sensation Description Numbness,Tingling Muscle Tone Muscle Tone WNL No M6 PT-IP Treatment Start: 10/30/19 14:09 Freq: NEEDED Status: Active Protocol: Document 11/07/19 12:33 AW (Rec: 11/07/19 12:42 AW [id number]) Physical Therapy Treatment Education Education Provided Safety M7 PT-IP Assessment and Plan Start: 10/30/19 14:09 Freq: NEEDED Status: Active Protocol: Document 11/07/19 12:33 AW (Rec: 11/07/19 12:42 AW [id number]) PT Summary Assessment and Plan Potential Rehabilitation Potential Fair Summary Impairments Pain,ROM,Strength,Balance, Coordination,Sensation,Tone, Cognition,Bed Mobility, Transfers,Gait,Activity Tolerance Progress Towards Goals Slow Progress due to Medical Issues,Slow Progress due to Activity Tolerance Assessment Summary Pt continues to require max or total assist x 2 for transfers. Ability may have been impacted by effort associated with transfers for MRI just prior to treatment. If pt does not discharge to higher level of care, SNF rehab will be needed to improve functional mobility. Goals Bed Mobility Goal Minimal Assistance Transfer Goal Minimal Assistance,Front Wheeled Walker Gait Goal Minimal Assistance,Front Wheel Walker Gait Distance 25 Days to Meet Goals 10 Frequency of Treatment Frequency Of Treatment Once a Day Treatment Plan Physical Therapy Treatment Plan Bed Mobility Training,Transfer Training,Gait Training, Therapeutic Exercise,Balance Retraining,Discharge Planning, Neuromuscular Re-ed, Coordination Retraining,Manual Therapy Other Recommendations and Next Treatment sitting bal/michelle, standing bal/ Focus michelle, transfers ambulation Recommendations To Nursing Amount of Assist Needed Mechanical Lift Discharge Recommendations PT Discharge Recommendations SNF Rehab Transportation Needs at Discharge Stretcher/Ambulance
[2019-11-07 12:46] LABS: Appearance Urine UA SL CLOUDY; Bilirubin Urine UA NEGATIVE (NEGATIVE); Color Urine UA YELLOW; Glucose Urine UA NEGATIVE (Negative); Ketones Urine UA NEGATIVE (NEGATIVE); Leukocyte Esterase Urine UA 3+ (NEGATIVE); Nitrite Urine UA NEGATIVE (Negative); Occult Blood Urine UA 3+ (Negative); Protein Urine UA 2+ (Negative); Specific Gravity Urine UA 1.015 (1.000-1.035); Urobilinogen Urine UA 0.2 E.U./dL (0.2)
[2019-11-07 12:49] LABS: pH Urine UA 6.5 (4.5-8.0)
[2019-11-07 12:54] LABS: Amorphous Sediment Urine 1+; RBC Urine 30-100/HPF (0-5/HPF); Squamous Epithelial Cell Urine 0-1 /HPF (0-5/HPF); WBC Urine 30-100/HPF (0-5/HPF)
[2019-11-07 12:55] LABS: Bacteria Urine Moderate (10-30); Culture Indicated Urine Specimen Cultured
--- NOTE | 2019-11-07 13:49 | P.PN_ITS ---
Subjective Subjective Date Patient Seen: 11/07/19 Time Patient Seen: 13:50 Interval history: Patient feeling well today. Feels like her strength is slightly better. Speech is slightly better she feels like she is is full. She had eaten really well yesterday but no other changes. Discussed extensively with [facility] yesterday and it appears as if she will be working towards going there for MS care. Exam Vital Signs (past 8 hours): - 11/07/19 08:42 11/07/19 13:00 Temperature 98.5 F 97.8 F Pulse Rate 73 66 Respiratory Rate 18 16 Blood Pressure 119/71 97/54 L Pulse Oximetry 95 96 Oxygen Delivery Method Room Air Oxygen Flow Rate 0 Narrative Exam Narrative: Alert smiling female lying in bed no acute distress. HEENT exam mucous membranes moist. NG tube in place. Neck supple without adenopathy. Lungs are clear. Heart regular rate and rhythm. Abdomen is soft positive bowel sounds nontender. Extremities normal. Patient has improve speech today. Slightly less difficulty. Arm strength seems about the same. She still has significant left leg weakness and right leg seems slightly improved. Compared to her left Objective Labs Result Diagrams: 11/07/19 08:10 11/07/19 08:10 Labs: Laboratory Results - last 24 hr 11/07/19 11/07/19 11/07/19 08:10 08:10 12:20 WBC 20.3 H D RBC 2.99 L Hgb 8.7 L Hct 25.9 L MCV 86.8 MCH 29.0 MCHC 33.4 RDW 17.3 H Plt Count 250 Total Counted 100 Seg Neutrophils % 78.0 H Band Neutrophils % 10.0 H Lymphocytes % (Manual) 4.0 L Atypical Lymphs % 1.0 H Monocytes % (Manual) 6.0 Metamyelocytes % 1.0 H Neutrophils # (Manual) 59036 H RBC Morphology Normal morphology Sodium 138 Potassium 4.1 Chloride 105 Carbon Dioxide 25 BUN 36 H Creatinine 0.65 Estimated GFR > 60.0 BUN/Creatinine Ratio 55.4 H Glucose 134 H Calcium 8.7 Urine Color Yellow Urine Appearance Sl cloudy Urine pH 6.5 Ur Specific [place] 1.015 Urine Protein 2+ H Urine Glucose (UA) Negative Urine Ketones Negative Urine Occult Blood 3+ H Urine Nitrate Negative Urine Bilirubin Negative Urine Urobilinogen 0.2 Ur Leukocyte Esterase 3+ H Urine RBC 30-100/hpf H Urine WBC 30-100/hpf H Ur Squamous Epith Cells 0-1 /hpf Amorphous Sediment 1+ Urine Bacteria Moderate (10-30) H Ur Culture Indicated? Specimen cultured Assessment & Plan Assessment & Plan narrative: Multiple sclerosis remitting and relapsing. Overall on steroid seems to be actually slightly improved for me today. Plan is to go to the [facility] tomorrow. Hopefully that is all set up. Once they have established her current level of care and need for medications we will see her back. Elevated white count. Probably secondary to her steroids but chest x-ray is normal. Urine shows some abnormality. No fever. Exam otherwise normal. Do not believe we need significant change in treatment protocol. UTI. Only had 3 days with the treatment. Will give Levaquin today. E coli which is pansensitive should be okay. Two more days should cover but may need to continue while at the [facility] for a few days. Fairly her thrive. Dependent really on treatment. She seems to be doing well. At this point I think this has a lot to do with her MS treatment emotionally she seems to be doing well. Severe protein malnutrition. Patient is taking p.o. well. I think we discontinue her tube feeds continue to follow oral intake. Only issue will be whether not she can continue to get enough water in but will see how things go. Dehydration. Resolved. Acute metabolic encephalopathy. Actually probably at baseline. Hard to tell. At this point probably combination of her MS and UTI. Right ovarian hemorrhagic cyst seems to be stable. Will be followed as an ou tpatient. History of alcohol abuse. Patient actually denies alcohol issue states that she does use marijuana at this point as it is the unremarkable issue but maybe some will have to watch as an outpatient. Certainly could have huge impact on treatment. History of marijuana abuse discuss the need for her to stop. Certainly not at positive for her. She understands. Questions answered. Code status full. DVT on Lovenox. Disposition hopefully inpatient transfer on Friday which is tomorrow. No change in treatment as above Quality VTE Deep Vein Thrombosis/Pulmonary Embolism Present on Admission: No
[2019-11-07] MEDS: methylPREDNISolone 1,000 MG in SODIUM CHLORIDE 0.9% 250 ML 258 ML IV (13:53)
[2019-11-07] MEDS: levoFLOXacin 500 MG TABLET PO (13:57)
--- NOTE | 2019-11-07 14:46 | PC.NURSE ---
SHIFT NOTE: AT VERY START OF SHIFT, PATIENT IRRITATED THIS AM I AM PISSED OFF THAT THE LAB DRAW THIS AM WAS UNSUCEESSFUL. CALLED TO LAB, THEY SENT SOMEONE TO REDRAW. PATIENT THEN CALMED CONSIDERABLY. IV R AC LEAKING. NEW IV STARTED TO LEFT HAND. C/O RIGHT KNEE PAIN THROUGHOUT THE DAY. MEDICATED PRN, SEE MAY. PATIENT GIVEN BEDBATH THIS AM, THEN WENT DOWNSTAIRS FOR MRI AROUND 1000. PATIENT EATING BETTER AGAIN TODAY. NO S/SX'S OF COUGHING OR TROUBLE WITH SWALLOW. DR. ESQUIVEL SAW PATIENT, ORDER FOR NGT TO BE DC'D. REMOVED AT 1415. TOLERATED WELL. SHE IS MUCH HAPPIER TO HAVE THIS OUT. HER POA/FRIEND MOISÉS IS HERE. MOISÉS STATES THAT PATIENT LOOKS LIKE SHE IS DOING MUCH BETTER THAN WHEN SHE SAW HER 2 DAYS AGO. PATIENT IS BRIGHT EYED, PINK CHEEKS AND VERY CONVERSATIONAL TODAY.
[2019-11-07 15:13] LABS: COVID19 -Nasal RAPID Negative (Negative)
[2019-11-07] MEDS: SERTRALINE 50 MG TABLET 100 MG PO (20:45)
[2019-11-08] MEDS: IBUPROFEN 400 MG TABLET PO ×3 (00:33→09:04)
--- NOTE | 2019-11-08 00:56 | PC.NURSE ---
Addendum entered by Mali Lai R.N. 11/08/19 05:02: Woke up thinking there were men with guns. Concerned that she will be transported today by an ambulance crew of [employer] with guns. Had TV while she slept and show dealt with police and guns. Reassurance provided. States coccyx pain is 10/10 but feels it is exacerbated by her thoughts; medicated with Ibuprofen + Oxycodone. Addendum entered by Mali Lai R.N. 11/08/19 02:01: States pain has worsened and is now 8/10 so medicated with Morphine. Original Note: Patient is alert and oriented although speech is delayed and has some difficulty with word finding. Breath sounds CTA with RA sat of 97%. HRR. Denies nausea. Taking dysphagia diet with honey thick liquids. BT present and abdomen is soft. No BM recorded since 10/30 but patient states she has had a BM since admission but uncertain of which day. Indwelling catheter is patent; urine is clear yellow. Unable to reposition herself so is being turned q2h; waffle cushion is being used to help prevent breakdown. Scattered bruising/abrasions to bilateral LE. Has difficulty with fine motor or bilateral hands. Weakness in bilateral LE and decreased ROM in left LE. Refusing SCD's so reminded to ankle wave. Complains of 7/10 coccyx/buttock pain so medicated with scheduled Ibuprofen but is aware she can have Morphine later if not improved; also repositioned onto right side. Fall risk score is high and bed alarm is activated.
[2019-11-08] MEDS: SODIUM CHLORIDE 0.9% FLUSH 10 ML IV ×3 (01:55→08:56)
[2019-11-08] MEDS: MORPHINE 2 MG/ML INJ IV ×2 (01:55→06:58)
[2019-11-08] MEDS: OXYCODONE IR 5 MG TABLET PO ×2 (04:51→10:17)
[2019-11-08 04:59] VITALS: BP 102/54; PULSE 61; RESP 18; TEMP 36.7; O2SAT 98
[2019-11-08 06:56] LABS: Hematocrit 25.5 % (36-46); Hemoglobin 8.6 g/dL (12.0-16.0); Mean Corpuscular HGB Conc 33.5 % (30-36); Mean Corpuscular Hemoglobin 29.6 PG (26-34); Mean Corpuscular Volume 88.3 fL (80-100); Platelet Count 261 X10^3/uL (150-400); Red Blood Cell Count 2.89 X10^6/uL (4.0-5.2); Red Cell Distribution Width 17.5 % (11.6-14.8); White Blood Cell Count 10.4 X10^3/uL (4.5-11.0)
[2019-11-08 07:05] LABS: BUN Creatinine Ratio 65.1 (6-22); Blood Urea Nitrogen 41 mg/dL (7-17); Calcium 8.4 mg/dL (8.4-10.2); Carbon Dioxide 26 mmol/L (22-32); Chloride 104 mmol/L (98-107); Estimated Glomerular Filt Rate > 60.0 mL/min (>60); Glucose 138 mg/dL (70-100); HEMOLYSIS < 15 (0-50); Potassium 4.4 mmol/L (3.4-5.1); Sodium 137 mmol/L (137-145)
[2019-11-08 07:48] LABS: Neutrophils Absolute Manual 9568 /uL (3000-5900); RBC Morphology Normal Morphology; Total Cells Counted 100
--- NOTE | 2019-11-08 08:22 | P.DS_ITS ---
History of Present Illness History of Present Illness Date Patient Seen: 11/08/19 Time Patient Seen: 08:23 Date of Onset of Symptoms: 11/08/19 Chief complaint: Weakness Narrative: See history and physical dictated by Dr. Olson on 10/30/2019 Discharge Providers Provider Date of admission: 11/02/19 15:24 Discharge Date: 11/08/19 Primary care physician: He Wellington MD Consults: 10/29/19 14:44 Consult to PULVERIZER TENDER - Secretary To The Vice President Stat Comment: need home services PULVERIZER TENDER Consult: [facility] Need 10/29/19 19:14 Consult to Dietitian, Adult Routine Comment: Reason For Exam: malnutrition Consult to Discharge Planning Routine Comment: Consult to Occupational Therapy Evaluate & Treat Comment: Physician Instructions: Evaluate and treat Consult to Physical Therapy Evaluate & Treat Comment: Physician Instructions: Evaluate and Treat 10/30/19 09:35 Consult to Speech Therapy Evaluate & Treat Comment: Physician Instructions: Evaluate and treat 11/03/19 09:29 Consult to Palliative Care Routine Comment: Consulting Provider: Tiny Torres 11/05/19 17:21 Consult to Dietitian, Adult Routine Comment: Reason For Exam: tube feeds Discharge provider: Steven Tan MD Summary Hospital Course Discharge Diagnosis: Multiple sclerosis relapsing remitting Elevated white count UTI Failure to thrive Severe protein malnutrition Dehydration Acute metabolic encephalopathy Right ovarian hemorrhagic cyst History of marijuana use Hospital Course: Multiple sclerosis relapsing remitting. Patient was admitted on day 1 with concern that this is been a progressive downward spiral. It was unclear because of lack of contact how all patient had been declining. After discussion as patient began to wake up it was clear that she was having some progressive decline and some stepwise decline. Hospitalization was created probably secondary to infection and her change in status. And poor care at home. Patient slowly began to improve and was started on steroids. Had continu ed to improve to the point where she was feeding herself and with moderately good upper extremity strength although she still has issues primarily with her left leg and weakness in her lower extremities bilaterally. Due to the fact that we have no neurology support here and that she improved and probably has not a progressive process and responded to steroids we discussed with the [facility] MS center and they were gracious in their ability to take patient and get her into the care that she deserves. Will be transferring today. Problem 2. Elevated white count. Patient came in with initial moderate white count decline. On 2 days prior to admission her white count was elevated she had no fever no other changes it was felt to be secondary to her steroid treatment. Urine had 3 days worth of treatment and she was given 2 more days and will be followed. UTI. Patient came in with UTI was cultured and had E coli. Pansensitive. Was treated with Rocephin for 3 days with 2 day of non treatment and then restarted on Levaquin. Should be treated this point but might complete 3 more days of treatment at the [facility]. Will see what they recommend but otherwise patient has been afebrile and having no other issues and strength is been slowly improving. Failure to thrive. Combination of MS UTI and poor access to treatment and poor social support. Clearly on admission patient was a able to eat in combination of feeding and strength to actually feed herself. No other changes. As she slowly improved feeding tube was placed for concern for feeding 0 but over the last 3 days she began in eating much better feeding tube in was discontinued and she seems to be tolerating p.o. intake. This is going to be a long-term issue to some extent with social support will have to see how things go and how well her MS responds. Severe protein malnutrition. Patient was assessed and initially thought a PEG tube would be considered but there was unclear whether her condition would support that. As she improved both in her mental status and strength a NG tube was placed and she was fed for 3 days during her admission. Due to the fact that she was taking p.o. in her strength improved she was discontinued and will be followed as an outpatient. Anemia probable iron deficient probably secondary to poor intake. She was given to IV infusions of iron and will be need to follow as an outpatient. She will follow-up with Dr. Hinds when she returns for treatment in 4-6 weeks and have that recheck. I suspect that IV replacement would be the best for her. Dehydration. Patient was admitted and IV hydration was done over the course of the 1st 36 hours should actually did pretty well but was not taking p.o. as NG tube was placed this was replaced and her IV was discontinued. She has been taking p.o. well on discharge. NG tube was discontinued. Right ovarian cyst. Patient was having some bleeding which she thought was her period but was having her anemia of the question whether not she was bleeding in other locations. She had a negative guaiac but did have an ultrasound which showed a right ovarian cyst which was probably hemorrhagic. Minimal fluid in the cul-de-sac and given her lack of symptoms was not felt to be significant. Gynecologic consultation was done and was felt to be something that can be followed as an outpatient. Questionable history of alcohol abuse. Patient denies any alcohol abuse and will follow although certainly reading notes from the clinic her neurologist felt like she was drinking some. Will have to see how that goes. We discussed the importance of not drinking with her MS. History of consistent marijuana use. We discussed the impact of this on her neurologic system. Probably not good decision. She understands will make her own decisions. Exam Vital Signs (past 8 hours): - 11/08/19 04:59 Temperature 98.1 F Pulse Rate 61 Respiratory Rate 18 Blood Pressure 102/54 L Pulse Oximetry 98 Oxygen Delivery Method Room Air Oxygen Flow Rate 0 Narrative Exam Narrative: Alert smiling female in no acute distress Mucous membranes moist. Neck supple without adenopathy. Lungs are clear. Heart regular rate and rhythm. Abdomen is soft positive months was nontender. Neurologic exam shows upper extremity strength actually is pretty good. Left leg is 3+ right leg is 4+ but still weak reflexes are intact. No other changes. Psychologically alert smiling interactive today. Objective Labs Result Diagrams: 11/08/19 06:40 11/08/19 06:40 Labs: Laboratory Results - last 24 hr 11/07/19 11/07/19 11/07/19 08:10 08:10 12:20 WBC 20.3 H D RBC 2.99 L Hgb 8.7 L Hct 25.9 L MCV 86.8 MCH 29.0 MCHC 33.4 RDW 17.3 H Plt Count 250 Total Counted 100 Seg Neutrophils % 78.0 H Band Neutrophils % 10.0 H Lymphocytes % (Manual) 4.0 L Atypical Lymphs % 1.0 H Monocytes % (Manual) 6.0 Metamyelocytes % 1.0 H Neutrophils # (Manual) 49350 H RBC Morphology Normal morphology Sodium 138 Potassium 4.1 Chloride 105 Carbon Dioxide 25 BUN 36 H Creatinine 0.65 Estimated GFR > 60.0 BUN/Creatinine Ratio 55.4 H Glucose 134 H Calcium 8.7 Urine Color Yellow Urine Appearance Sl cloudy Urine pH 6.5 Ur Specific [place] 1.015 Urine Protein 2+ H Urine Glucose (UA) Negative Urine Ketones Negative Urine Occult Blood 3+ H Urine Nitrate Negative Urine Bilirubin Negative Urine Urobilinogen 0.2 Ur Leukocyte Esterase 3+ H Urine RBC 30-100/hpf H Urine WBC 30-100/hpf H Ur Squamous Epith Cells 0-1 /hpf Amorphous Sediment 1+ Urine Bacteria Moderate (10-30) H Ur Culture Indicated? Specimen cultured COVID-19 PCR 11/07/19 11/08/19 11/08/19 14:00 06:40 06:40 WBC 10.4 RBC 2.89 L Hgb 8.6 L Hct 25.5 L MCV 88.3 MCH 29.6 MCHC 33.5 RDW 17.5 H Plt Count 261 Total Counted 100 Seg Neutrophils % 91.0 H Band Neutrophils % 1.0 L Lymphocytes % (Manual) 7.0 L Atypical Lymphs % Monocytes % (Manual) 1.0 L Metamyelocytes % Neutrophils # (Manual) 9568 H RBC Morphology Normal morphology Sodium 137 Potassium 4.4 Chloride 104 Carbon Dioxide 26 BUN 41 H Creatinine 0.63 Estimated GFR > 60.0 BUN/Creatinine Ratio 65.1 H Glucose 138 H Calcium 8.4 Urine Color Urine Appearance Urine pH Ur Specific [place] Urine Protein Urine Glucose (UA) Urine Ketones Urine Occult Blood Urine Nitrate Urine Bilirubin Urine Urobilinogen Ur Leukocyte Esterase Urine RBC Urine WBC Ur Squamous Epith Cells Amorphous Sediment Urine Bacteria Ur Culture Indicated? COVID-19 PCR Negative Discharge Assessment & Plan Assessment and Plan Plan of Treatment: Transfer to the [facility] 45 minutes spent discharging patient social service coordination of transfer Discharge Plan Discharge Plan Disposition: [facility] Acute Care Hospital Discharge orders & Medications Follow up/Referrals: He Wellington MD [Primary Care Provider] - Discharge Data Primary Care Provider: He Wellington Quality VTE Deep Vein Thrombosis/Pulmonary Embolism Present on Admission: No
[2019-11-08 08:56] VITALS: BP 92/51; PULSE 62; RESP 19; TEMP 36.8; O2SAT 97
[2019-11-08] MEDS: IRON SUCROSE 200 MG in SODIUM CHLORIDE 0.9% 100 ML 220 ML IV (08:56)
[2019-11-08] MEDS: ENOXAPARIN 40 MG/0.4 ML SYRINGE SUBCUT (09:00)
[2019-11-08] MEDS: FOLIC ACID 1 MG TABLET PO (09:03)
[2019-11-08] MEDS: levoFLOXacin 500 MG TABLET PO (09:04)
[2019-11-08] MEDS: MULTIVITAMIN 1 TABLET 1 TAB PO (09:05)
--- NOTE | 2019-11-08 09:11 | CM.DPC ---
Addendum entered by Daisy Villalba 11/08/19 11:46: Received call from DPOA/Nyasia she reports that they are so happy that patient transferring to [facility] today. GLOBAL ACCOUNT MANAGER notified Nyasia that Dave Harris at [facility] will be notified. Also provided Nyasia with his direct phone number. P: Transfer to [facility] today. MAMI Yoon Original Note: DCP/continued: Reviewed chart. Spoke with charge/RN Chaya she reports that patient will be transferring to [facility] today around 10:30AM. Met with patient to wish her well. Patient appreciative of visit. Patient's Aunt at bedside and reports that she would like to speak with GLOBAL ACCOUNT MANAGER when DPOA/Nyasia arrives. Aunt reports I am not happy? Per previous CM notes QMM done on 11-07-19. Notified Aunt to notify RN when Nyasia arrives to call GLOBAL ACCOUNT MANAGER. P: Transfer to [facility] for further neurological w/u today. MAMI Yoon
--- NOTE | 2019-11-08 09:11 | PT-IP ANOTE ---
Pt discharging today to [facility] center at 1045 via BLS transport. Hold PT today to conserve energy for transfer.
--- NOTE | 2019-11-08 09:22 | OT.IP.TRT ---
Current Diagnoses Major depressive disorder, single episode, unspecified (11/02/19) Multiple sclerosis (11/02/19) Urinary tract infection, site not specified (11/02/19) Adult failure to thrive (11/02/19) Occupational Therapy Treatment Note M2 OT-IP Current Condition Start: 10/30/19 12:34 Freq: Status: Active Protocol: Document 10/30/19 12:34 CGR (Rec: 10/30/19 13:11 CGR [email or web address]) Occupational Therapy Current Condition Current Condition Evaluation Date 10/30/19 Treatment Diagnosis Generalized weakness Diagnosis Onset Date 10/29/19 M3 OT- IP Subjective and Pain Start: 10/30/19 12:34 Freq: Status: Active Protocol: Document 11/08/19 09:22 CGR (Rec: 11/08/19 09:22 CGR [email or web address]) OT- Subjective Occupational Therapy Visit Type Type Administrative Note Notes Pt discharging today to MS center at 1045 via BLS transport. Hold OT today to conserve energy for transfer.
--- NOTE | 2019-11-08 11:04 | PC.NURSE ---
Day Shift- Pt's Aunt and pt stated pt's [email or web address] cell phone was lost several days ago. RN Coordinator and now gunite mixer Mayra aware. Pt's personal belongings with pt's friend and GERI Murrell has pt's purse and pt's own medication bottle of Setraline. PRN Oxycodone 5mg given at 1020 prior to transport for comfort. Pain reported to [facility] area 4-07/17. Report called to Ana Luisa at [phone] at 1040 at [facility] location. Brief report given to S transport. Pt left unit in no distress at 1100. Left wrist PIV left in place as pt has had several PIV lines since admission. Accepting facility aware.
== END 2019-11-08 11:05 | disposition short-term general hospital (02) | DRG 689 ==
LOC: ED 18:01 → AC 18:02
PROVIDERS: Family Medicine; Admitting Provider Internal Medicine; Emergency Provider Emergency Medicine; Family Provider Family Medicine; PCP Family Medicine; Visit Provider Student in an Organized Health Care Education/Training Program
DX: N39.0 Urinary tract infection, site not specified (principal); E43 Unspecified severe protein-calorie malnutrition; G93.41 Metabolic encephalopathy; Z68.1 Body mass index [BMI] 19.9 or less, adult; B96.20 Unspecified Escherichia coli [E. coli] as the cause of diseases classified elsewhere; E86.0 Dehydration; R41.0 Disorientation, unspecified; G35 Multiple sclerosis; E87.6 Hypokalemia; D64.9 Anemia, unspecified; N83.201 Unspecified ovarian cyst, right side; F12.10 Cannabis abuse, uncomplicated; Z87.891 Personal history of nicotine dependence
CPT/HCPCS: 36415; 36592; 70450; 70553; 71045; 71046; 72156; 72157; 72158; 74230; 76700; 76830; 76856; 80048; 80053; 81001; 82607; 82728; 82746; 83540; 83550; 83735; 84100; 85025; 86140; 87040; 87077; 87086; 87186; 87635; 92507; 92522; 92526; 92611; 96361; 96374; 97110; 97116; 97162; 97167; 97530; 97535; 99219; 99225; 99232; 99284; 99497; G0378; J1170; J1650; J1756; J2060; J2270; J2405; J2930; J3475; J3480; J7050